=== PATIENT | female | born 1965 | race Caucasian/White ===

== ENCOUNTER 2017-11-06 12:40 | Emergency (ER) | payer BC ==
[2017-11-06] MEDS ORDERED: Morphine 2 MG/ML SYRINGE ONE ×2 (13:17→14:40)
[2017-11-06] MEDS ORDERED: Ondansetron HCl/PF 4 MG/2 ML Vial ONE (13:18)
[2017-11-06] MEDS ORDERED: Lidocaine 1% (PF) 30 ML VIAL ONE (13:58)
[2017-11-06] MEDS ORDERED: Bacitracin Zinc 1 Packet ONE (14:40)
--- NOTE | 2017-11-06 15:36 | RAD ---
THREE VIEWS LEFT HAND: COMPARISON: None. HISTORY: Hand lacerations after being bitten by a dog. FINDINGS: Three views left hand show no evidence of acute fracture or dislocation. There is air in the thenar web space. No radiopaque foreign body is seen. IMPRESSION: No evidence of acute osseous abnormality. POS: [facility]
[2017-11-06] MEDS ORDERED: Adacel (T-DAP) 0.5 ML VIAL ONE (15:53)
== END 2017-11-06 17:10 | disposition home or self-care (01) ==
LOC: ERS 12:40
DX: S01.551A Open bite of lip, initial encounter (principal); S61.452A Open bite of left hand, initial encounter; S61.451A Open bite of right hand, initial encounter; S01.05XA Open bite of scalp, initial encounter; S71.152A Open bite, left thigh, initial encounter; E03.9 Hypothyroidism, unspecified; F17.210 Nicotine dependence, cigarettes, uncomplicated; Z79.899 Other long term (current) drug therapy; W54.0XXA Bitten by dog, initial encounter
CPT/HCPCS: 12014; 90471; 90715; 96361; 96374; 96375; 96376; J2001; J2270; J2405

== ENCOUNTER 2018-05-27 08:08 | Outpatient (CLI) | payer BC | END 2018-05-27 08:09 | disposition home or self-care (01) | LOC: BICMAMMO 08:08 | PROVIDERS: ATTEND Obstetrics & Gynecology | DX: Z12.31 Encounter for screening mammogram for malignant neoplasm of breast (principal); R92.1 Mammographic calcification found on diagnostic imaging of breast | CPT/HCPCS: 77063; 77067 ==

== ENCOUNTER 2019-08-31 08:14 | Outpatient (CLI) | payer BC ==
--- NOTE | 2019-08-31 09:08 | MMO ---
Bilateral MAMMO Bilat Screen [facility]. CLINICAL HISTORY: Patient is 54 years old and is seen for screening. The patient has no family history of breast cancer. The patient has no personal history of cancer. VIEWS: The views performed were: bilateral craniocaudal with tomosynthesis and bilateral mediolateral oblique with tomosynthesis. FILMS COMPARED: The present examination has been compared to prior imaging studies performed at [facility] on 01/10/2015, 01/13/2016, 03/17/2017 and 05/27/2018. This study has been interpreted with the assistance of computer-aided detection. MAMMOGRAM FINDINGS: There are scattered fibroglandular densities. There are stable benign appearing calcifications seen in both breasts. There are no suspicious masses, suspicious calcifications, or new areas of architectural distortion. IMPRESSION: THERE IS NO MAMMOGRAPHIC EVIDENCE OF MALIGNANCY. A ROUTINE FOLLOW-UP MAMMOGRAM IN 1 YEAR IS RECOMMENDED. THE RESULTS OF THIS EXAM WERE SENT TO THE PATIENT. ACR BI-RADS Category 2 - Benign finding MAMMOGRAPHY NOTE: 1. A negative mammogram report should not delay a biopsy if a dominant of clinically suspicious mass is present. 2. Approximately 10% to 15% of breast cancers are not detected by mammography. 3. Adenosis and dense breasts may obscure an underlying neoplasm. Reported by: ALYSSA CHIRINOS MD Electonically Signed: [id number]
== END 2019-08-31 08:15 | disposition home or self-care (01) ==
LOC: BICMAMMO 08:14
PROVIDERS: ATTEND Obstetrics & Gynecology
DX: Z12.31 Encounter for screening mammogram for malignant neoplasm of breast (principal)
CPT/HCPCS: 77063; 77067

== ENCOUNTER 2020-12-31 13:07 | Inpatient (IN) | payer BC ==
[2020-12-31] MEDS ORDERED: Octreotide Acetate 50 MCG/ML AMP ONE (14:27)
[2020-12-31] MEDS ORDERED: cefTRIAXone\\ROCEPHIN 2 GM VIAL ONE (14:27)
[2020-12-31] MEDS ORDERED: Pantoprazole 40 MG VIAL ONE (14:35)
[2020-12-31] MEDS ORDERED: Octreotide Acetate 100 MCG/ML VIAL ONE (14:53)
[2020-12-31 15:12] LABS: Hemoglobin 7.4 g/dL (12.0-16.0); Mean Corpuscular Hemoglobin 35.4 pg (27.0-31.0); Mean Platelet Volume 10.1 fL (7.4-10.4); Platelet Count 151 thou/uL (130-400); RBC Distribution Width 14.2 % (11.5-14.5); Red Blood Cell (RBC) Count 2.09 mill/uL (4.20-5.40); White Blood Cell (WBC) Count 23.7 thou/uL (4.8-10.8)
[2020-12-31] MEDS ORDERED: Octreotide Acetate 1,250 MCG in Sodium Chloride 0.9% 250 ML 250 ML IVPB SCH ×2 (15:15→17:04)
[2020-12-31] MEDS ORDERED: Pantoprazole 80 MG, Admixture Fee 1 EACH in Sodium Chloride 0.9% 100 ML IVPB SCH (15:15)
[2020-12-31 15:17] LABS: INR-International Normal Ratio 1.8; Prothrombin Time 21.4 sec (12.0-14.7)
[2020-12-31 15:32] LABS: ALT (SGPT) 21 U/L (8-55); AST (SGOT) 49 U/L (5-34); Albumin 2.7 g/dL (3.5-5.0); Alcohol Less than 10 mg/dL (Less than 10); Alkaline Phosphatase 241 U/L (40-110); Anion Gap 17 mmol/L (10-20); BUN (Urea Nitrogen) 23 mg/dL (9.8-20.1); Bilirubin, Total 2.7 mg/dL (0.2-1.2); Calc. Creatinine Clearance 0 mL/min (70-130); Calcium 8.1 mg/dL (7.8-10.44); Carbon Dioxide 18 mmol/L (22-29); Chloride 100 mmol/L (98-107); Globulin 2.6 g/dL (2.4-3.5); Glucose 144 mg/dL (70-105); Potassium 4.4 mmol/L (3.5-5.1); Protein, Total 5.3 g/dL (6.0-8.3); Sodium 131 mmol/L (136-145)
[2020-12-31 15:33] LABS: PTT 39.6 sec (22.9-36.1)
[2020-12-31 15:35] LABS: Band 34 % (5-11); Lymphocytes 6 % (21-51); MDiff Complete? YES; Macrocytosis SLIGHT = 6-15 cells (100X) (0-5/hpf); Monocytes 6 % (0-10); Neutrophil 54 % (42-75); Platelet Morphology Comment Appears Adequate; Polychromasia SLIGHT = 2-3 cells (100X) (0-2/hpf)
[2020-12-31] MEDS ORDERED: PROPOFOL 200 MG/20 ML VIAL ONE (15:45)
[2020-12-31] MEDS ORDERED: Succinylcholine 200 MG/10 ml SYRINGE FS ONE (15:45)
[2020-12-31 16:08] LABS: SARS-CoV-2 NAA Rapid Test Not Detected (NotDetected)
[2020-12-31 16:26] LABS: Lactic Acid 5.4 mmol/L (0.5-2.2)
[2020-12-31] MEDS ORDERED: Ondansetron PF 4 MG/2 ML Vial IVP PRN (17:37)
[2020-12-31] MEDS ORDERED: Ondansetron ODT 4 MG TAB PO PRN (17:37)
[2020-12-31] MEDS: Budesonide 0.5 MG/2 ML NEB NEB SCH (19:08)
[2020-12-31 20:23] LABS: Hemoglobin 7.3 g/dL (12.0-16.0)
[2020-12-31 20:25] LABS: #Lymphocytes 1.6 thou/uL (1.20-3.40); #Monocytes 1.7 thou/uL (0.11-0.59); #Neutrophils 14.4 thou/uL (1.40-6.50); %Basophils 0.2 % (0.0-1.0); %Eosinophils 0.3 % (0.0-10.0); %Lymphocytes 9.2 % (21.0-51.0); %Monocytes 9.6 % (0.0-10.0); %Neutrophils 80.8 % (42.0-75.0); Hemoglobin 7.4 g/dL (12.0-16.0); Mean Corpuscular HGB CONC 33.3 g/dL (32.0-36.0); Mean Corpuscular Hemoglobin 34.6 pg (27.0-31.0); Mean Platelet Volume 10.3 fL (7.4-10.4); Platelet Count 88 thou/uL (130-400); Red Blood Cell (RBC) Count 2.12 mill/uL (4.20-5.40); White Blood Cell (WBC) Count 17.9 thou/uL (4.8-10.8)
[2020-12-31 20:56] LABS: Magnesium 1.8 mg/dL (1.6-2.6); Phosphorus 3.4 mg/dL (2.3-4.7)
[2020-12-31] MEDS: Dextrose 5 % And 0.9 % NaCl 1,000 ML IV SCH (21:40)
[2020-12-31] MEDS ORDERED: Diazepam 5 MG TAB PO PRN (23:03)
[2020-12-31] MEDS ORDERED: Diazepam 5 MG TAB PO SCH (23:15)
[2020-12-31] MEDS: Multivitamins, Adult 10 ML, Folic Acid 1 MG in Dextrose 5 %-0.45 % NaCl 1,000 ML IV SCH (23:16)
[2020-12-31] MEDS: Thiamine HCl 200 MG/2 ML VIAL SLOW IVP SCH (23:17)
[2020-12-31] MEDS: Phytonadione 10 MG/ML AMP SC SCH (23:18)
[2021-01-01 04:00] LABS: ALT (SGPT) 25 U/L (8-55); AST (SGOT) 66 U/L (5-34); Albumin 2.4 g/dL (3.5-5.0); Alkaline Phosphatase 175 U/L (40-110); Anion Gap 10 mmol/L (10-20); BUN (Urea Nitrogen) 18 mg/dL (9.8-20.1); Bilirubin, Total 1.8 mg/dL (0.2-1.2); Calc. Creatinine Clearance 176 mL/min (70-130); Calcium 7.3 mg/dL (7.8-10.44); Carbon Dioxide 23 mmol/L (22-29); Chloride 109 mmol/L (98-107); Globulin 2.3 g/dL (2.4-3.5); Glucose 149 mg/dL (70-105); Iron 40 ug/dL (50-170); Iron Binding Capacity, Total 189 mcg/dL (265-497); Potassium 3.7 mmol/L (3.5-5.1); Protein, Total 4.7 g/dL (6.0-8.3); Sodium 138 mmol/L (136-145)
[2021-01-01 04:07] LABS: CRP (Inflammatory) 3.4 mg/dL (= or < 0.5); Cardiac Risk 3.9 (Less than 4.5)
[2021-01-01 04:20] LABS: Ferritin 197.04 ng/mL (10-291); Thyroid Stimulating Hormone 1.3141 uIU/mL (0.35-4.94)
[2021-01-01 04:23] LABS: Reticulocyte Count 8.3 % (0.5-1.5)
[2021-01-01 04:39] LABS: INR-International Normal Ratio 1.6; Prothrombin Time 19.6 sec (12.0-14.7)
[2021-01-01 05:44] LABS: #Eosinphils 0.1 thou/uL (0.0-0.7); #Lymphocytes 1.8 thou/uL (1.20-3.40); #Monocytes 1.6 thou/uL (0.11-0.59); #Neutrophils 12.8 thou/uL (1.40-6.50); %Basophils 0.2 % (0.0-1.0); %Eosinophils 0.7 % (0.0-10.0); %Lymphocytes 10.8 % (21.0-51.0); %Monocytes 9.9 % (0.0-10.0); %Neutrophils 78.4 % (42.0-75.0); Anisocytosis SLIGHT = 6-15 cells (100X) (0-5/hpf); Hemoglobin 6.7 g/dL (12.0-16.0); MDiff Complete? YES; Mean Corpuscular HGB CONC 32.3 g/dL (32.0-36.0); Mean Platelet Volume 9.8 fL (7.4-10.4); Platelet Count 81 thou/uL (130-400); Platelet Morphology Comment Appears Decreased; RBC Distribution Width 16.6 % (11.5-14.5); Red Blood Cell (RBC) Count 1.97 mill/uL (4.20-5.40); White Blood Cell (WBC) Count 16.4 thou/uL (4.8-10.8)
[2021-01-01] MEDS: Budesonide 0.5 MG/2 ML NEB NEB SCH ×2 (07:47→18:55)
[2021-01-01] MEDS: Ipratropium Bromide 2.5 ml Neb NEB PRN ×2 (07:50→18:59)
[2021-01-01] MEDS: Dextrose 5 % And 0.9 % NaCl 1,000 ML IV SCH ×2 (08:24→18:09)
[2021-01-01] MEDS ORDERED: Magnesium Oxide 400 MG TAB PO SCH (09:00)
[2021-01-01] MEDS: Multivitamins, Adult 10 ML, Folic Acid 1 MG in Dextrose 5 %-0.45 % NaCl 1,000 ML IV SCH (09:14)
[2021-01-01] MEDS: Pantoprazole 80 MG in Sodium Chloride 0.9% 100 ML IVPB SCH (14:20)
[2021-01-01] MEDS ORDERED: cefTRIAXone Sodium 1,000 MG in Syringe 0 ML IVPB SCH (15:00)
[2021-01-01 16:36] LABS: Hemoglobin 7.9 g/dL (12.0-16.0); Platelet Count 84 thou/uL (130-400)
[2021-01-01] MEDS: Phytonadione 10 MG/ML AMP SC SCH (18:49)
[2021-01-01] MEDS: Thiamine HCl 200 MG/2 ML VIAL SLOW IVP SCH (18:49)
[2021-01-01] MEDS: Gabapentin 300 MG CAP PO SCH (22:06)
[2021-01-02] MEDS: Ipratropium Bromide 2.5 ml Neb NEB PRN (00:14)
[2021-01-02] MEDS: Pantoprazole 80 MG in Sodium Chloride 0.9% 100 ML IVPB SCH ×3 (01:48→22:13)
[2021-01-02 03:51] LABS: INR-International Normal Ratio 1.4; Prothrombin Time 17.2 sec (12.0-14.7)
[2021-01-02] MEDS ORDERED: Diazepam 5 MG TAB PO PRN (04:00)
[2021-01-02 04:13] LABS: ALT (SGPT) 36 U/L (8-55); AST (SGOT) 92 U/L (5-34); Albumin 2.6 g/dL (3.5-5.0); Alkaline Phosphatase 191 U/L (40-110); Anion Gap 10 mmol/L (10-20); BUN (Urea Nitrogen) 7 mg/dL (9.8-20.1); Bilirubin, Total 2.2 mg/dL (0.2-1.2); Calc. Creatinine Clearance 204 mL/min (70-130); Calcium 7.3 mg/dL (7.8-10.44); Carbon Dioxide 19 mmol/L (22-29); Chloride 109 mmol/L (98-107); Globulin 2.6 g/dL (2.4-3.5); Glucose 112 mg/dL (70-105); Magnesium 2.2 mg/dL (1.6-2.6); Potassium 3.3 mmol/L (3.5-5.1); Protein, Total 5.2 g/dL (6.0-8.3); Sodium 135 mmol/L (136-145)
[2021-01-02] MEDS: Dextrose 5 % And 0.9 % NaCl 1,000 ML IV SCH (06:06)
[2021-01-02 07:15] LABS: #Basophils 0.1 thou/uL (0.0-0.2); #Eosinphils 0.2 thou/uL (0.0-0.7); #Lymphocytes 1.1 thou/uL (1.20-3.40); #Monocytes 1.2 thou/uL (0.11-0.59); #Neutrophils 9.9 thou/uL (1.40-6.50); %Basophils 0.4 % (0.0-1.0); %Eosinophils 1.4 % (0.0-10.0); %Lymphocytes 8.8 % (21.0-51.0); %Monocytes 9.7 % (0.0-10.0); %Neutrophils 79.7 % (42.0-75.0); Mean Corpuscular HGB CONC 32.5 g/dL (32.0-36.0); Mean Platelet Volume 9.1 fL (7.4-10.4); Platelet Count 72 thou/uL (130-400); RBC Distribution Width 18.4 % (11.5-14.5); Red Blood Cell (RBC) Count 2.35 mill/uL (4.20-5.40); White Blood Cell (WBC) Count 12.5 thou/uL (4.8-10.8)
[2021-01-02] MEDS: Budesonide 0.5 MG/2 ML NEB NEB SCH ×2 (07:42→18:36)
[2021-01-02] MEDS: Gabapentin 300 MG CAP PO SCH ×3 (08:31→20:44)
[2021-01-02] MEDS: traMADol HCl 50 MG TAB PO PRN (09:04)
[2021-01-02] MEDS ORDERED: Adenosine 6 MG/2 ML VIAL IVP SCH (14:33)
[2021-01-02] MEDS ORDERED: Adenosine 6 MG/2 ML VIAL ONE (14:34)
[2021-01-02] MEDS ORDERED: Metoprolol Tartrate 25 MG TAB PO SCH (16:00)
[2021-01-02] MEDS ORDERED: Potassium Bicarbonate/Cit Ac 20 MEQ TAB PO SCH (16:00)
[2021-01-02] MEDS: Cyclobenzaprine 10 MG TAB PO PRN (16:04)
[2021-01-02] MEDS: Thiamine HCl 200 MG/2 ML VIAL SLOW IVP SCH (17:30)
[2021-01-02] MEDS: Phytonadione 10 MG/ML AMP SC SCH (17:30)
[2021-01-02] MEDS: Metoprolol Tartrate 25 MG TAB PO SCH (20:44)
[2021-01-03] MEDS: Cyclobenzaprine 10 MG TAB PO PRN ×3 (00:18→21:13)
[2021-01-03] MEDS: traMADol HCl 50 MG TAB PO PRN (03:09)
[2021-01-03 05:28] LABS: INR-International Normal Ratio 1.3; Prothrombin Time 16.4 sec (12.0-14.7)
[2021-01-03 05:28] LABS: #Eosinphils 0.2 thou/uL (0.0-0.7); #Lymphocytes 1.5 thou/uL (1.20-3.40); #Monocytes 0.9 thou/uL (0.11-0.59); #Neutrophils 8.5 thou/uL (1.40-6.50); %Basophils 0.4 % (0.0-1.0); %Monocytes 8.3 % (0.0-10.0); %Neutrophils 76.3 % (42.0-75.0); Hemoglobin 8.5 g/dL (12.0-16.0); Mean Corpuscular HGB CONC 31.7 g/dL (32.0-36.0); Mean Corpuscular Hemoglobin 34.4 pg (27.0-31.0); Platelet Count 79 thou/uL (130-400); RBC Distribution Width 18.4 % (11.5-14.5); Red Blood Cell (RBC) Count 2.48 mill/uL (4.20-5.40); White Blood Cell (WBC) Count 11.1 thou/uL (4.8-10.8)
[2021-01-03 05:51] LABS: ALT (SGPT) 42 U/L (8-55); AST (SGOT) 100 U/L (5-34); Albumin 2.7 g/dL (3.5-5.0); Alkaline Phosphatase 239 U/L (40-110); Anion Gap 9 mmol/L (10-20); BUN (Urea Nitrogen) 6 mg/dL (9.8-20.1); Bilirubin, Total 2.3 mg/dL (0.2-1.2); Calc. Creatinine Clearance 180 mL/min (70-130); Calcium 7.3 mg/dL (7.8-10.44); Carbon Dioxide 23 mmol/L (22-29); Chloride 104 mmol/L (98-107); Globulin 2.7 g/dL (2.4-3.5); Glucose 99 mg/dL (70-105); Magnesium 2.2 mg/dL (1.6-2.6); Potassium 3.8 mmol/L (3.5-5.1); Protein, Total 5.4 g/dL (6.0-8.3); Sodium 132 mmol/L (136-145)
[2021-01-03] MEDS: Budesonide 0.5 MG/2 ML NEB NEB SCH ×2 (06:58→18:33)
[2021-01-03] MEDS: Ipratropium Bromide 2.5 ml Neb NEB PRN ×2 (07:03→18:33)
[2021-01-03] MEDS ORDERED: Potassium Bicarbonate/Cit Ac 20 MEQ TAB PO SCH (08:00)
[2021-01-03] MEDS: Folic Acid 1 MG TAB PO SCH (08:51)
[2021-01-03] MEDS: Gabapentin 300 MG CAP PO SCH ×3 (08:51→21:13)
[2021-01-03] MEDS: Thiamine 100 MG TAB PO SCH (08:52)
[2021-01-03] MEDS: Multivitamin W/ Minerals 1 TAB PO SCH (08:52)
[2021-01-03] MEDS: Metoprolol Tartrate 25 MG TAB PO SCH (10:01)
[2021-01-03] MEDS ORDERED: Docusate 100 MG CAP PO PRN (18:00)
[2021-01-03] MEDS: Propranolol HCl 20 MG TAB PO SCH (21:15)
[2021-01-03] MEDS ORDERED: guaiFENesin/DM ER PO SCH (22:45)
[2021-01-04 04:50] LABS: #Eosinphils 0.1 thou/uL (0.0-0.7); #Lymphocytes 1.1 thou/uL (1.20-3.40); #Neutrophils 8.4 thou/uL (1.40-6.50); %Basophils 0.2 % (0.0-1.0); %Eosinophils 0.9 % (0.0-10.0); %Lymphocytes 10.1 % (21.0-51.0); %Monocytes 9.3 % (0.0-10.0); %Neutrophils 79.4 % (42.0-75.0); Hemoglobin 7.9 g/dL (12.0-16.0); Mean Corpuscular HGB CONC 32.6 g/dL (32.0-36.0); Mean Corpuscular Hemoglobin 34.8 pg (27.0-31.0); Mean Platelet Volume 9.2 fL (7.4-10.4); Platelet Count 79 thou/uL (130-400); RBC Distribution Width 17.6 % (11.5-14.5); Red Blood Cell (RBC) Count 2.26 mill/uL (4.20-5.40); White Blood Cell (WBC) Count 10.6 thou/uL (4.8-10.8)
[2021-01-04 05:07] LABS: ALT (SGPT) 45 U/L (8-55); AST (SGOT) 96 U/L (5-34); Albumin 2.5 g/dL (3.5-5.0); Alkaline Phosphatase 212 U/L (40-110); Anion Gap 9 mmol/L (10-20); BUN (Urea Nitrogen) 6 mg/dL (9.8-20.1); Bilirubin, Total 2.4 mg/dL (0.2-1.2); Calc. Creatinine Clearance 187 mL/min (70-130); Calcium 7.4 mg/dL (7.8-10.44); Carbon Dioxide 26 mmol/L (22-29); Chloride 103 mmol/L (98-107); Globulin 2.7 g/dL (2.4-3.5); Glucose 102 mg/dL (70-105); Potassium 3.5 mmol/L (3.5-5.1); Protein, Total 5.2 g/dL (6.0-8.3); Sodium 134 mmol/L (136-145)
[2021-01-04] MEDS: Cyclobenzaprine 10 MG TAB PO PRN (06:23)
[2021-01-04] MEDS: Levothyroxine 175 MCG TAB PO SCH (06:23)
[2021-01-04] MEDS: Budesonide 0.5 MG/2 ML NEB NEB SCH ×2 (07:10→18:39)
[2021-01-04] MEDS: Ipratropium Bromide 2.5 ml Neb NEB PRN ×2 (07:10→18:37)
[2021-01-04] MEDS: Multivitamin W/ Minerals 1 TAB PO SCH (09:58)
[2021-01-04] MEDS: Gabapentin 300 MG CAP PO SCH ×3 (09:58→20:56)
[2021-01-04] MEDS: Propranolol HCl 20 MG TAB PO SCH (10:00)
[2021-01-04] MEDS: Folic Acid 1 MG TAB PO SCH (10:00)
[2021-01-04] MEDS: guaiFENesin/DM ER PO SCH ×2 (10:00→20:57)
[2021-01-04] MEDS ORDERED: Digoxin 0.5 MG/2 ML AMP SLOW IVP SCH (10:00)
[2021-01-04] MEDS: Thiamine 100 MG TAB PO SCH (10:00)
[2021-01-04] MEDS ORDERED: Metoprolol Tartrate 5 MG/5 ML VIAL IVP SCH (10:15)
[2021-01-04] MEDS: Digoxin 0.5 MG/2 ML AMP SLOW IVP SCH ×2 (10:18→12:02)
[2021-01-04] MEDS: traMADol HCl 50 MG TAB PO PRN (15:22)
[2021-01-04] MEDS ORDERED: Iopamidol-370 76% 500 ML 1 ML ONE (15:29)
[2021-01-04] MEDS: Spironolactone 25 MG TAB PO SCH (16:44)
[2021-01-04] MEDS ORDERED: Sodium Chloride 0.9% 500 ML IVPB SCH (23:30)
[2021-01-05 04:45] LABS: #Eosinphils 0.1 thou/uL (0.0-0.7); #Lymphocytes 1.2 thou/uL (1.20-3.40); #Monocytes 1.3 thou/uL (0.11-0.59); #Neutrophils 8.5 thou/uL (1.40-6.50); %Basophils 0.4 % (0.0-1.0); %Eosinophils 1.3 % (0.0-10.0); %Lymphocytes 10.8 % (21.0-51.0); %Monocytes 11.8 % (0.0-10.0); %Neutrophils 75.7 % (42.0-75.0); Hemoglobin 7.8 g/dL (12.0-16.0); Mean Corpuscular HGB CONC 32.3 g/dL (32.0-36.0); Mean Corpuscular Hemoglobin 34.4 pg (27.0-31.0); Mean Platelet Volume 9.1 fL (7.4-10.4); Platelet Count 94 thou/uL (130-400); RBC Distribution Width 16.3 % (11.5-14.5); Red Blood Cell (RBC) Count 2.26 mill/uL (4.20-5.40); White Blood Cell (WBC) Count 11.2 thou/uL (4.8-10.8)
[2021-01-05 04:55] LABS: ALT (SGPT) 37 U/L (8-55); AST (SGOT) 70 U/L (5-34); Albumin 2.4 g/dL (3.5-5.0); Alkaline Phosphatase 265 U/L (40-110); Anion Gap 7 mmol/L (10-20); BUN (Urea Nitrogen) 5 mg/dL (9.8-20.1); Bilirubin, Total 1.7 mg/dL (0.2-1.2); Calc. Creatinine Clearance 180 mL/min (70-130); Calcium 7.3 mg/dL (7.8-10.44); Carbon Dioxide 26 mmol/L (22-29); Chloride 103 mmol/L (98-107); Globulin 2.6 g/dL (2.4-3.5); Glucose 119 mg/dL (70-105); Potassium 3.3 mmol/L (3.5-5.1); Sodium 133 mmol/L (136-145)
[2021-01-05] MEDS: Levothyroxine 175 MCG TAB PO SCH (05:06)
[2021-01-05] MEDS ORDERED: Potassium Chloride 20 MEQ TAB PO SCH (06:00)
[2021-01-05] MEDS: Budesonide 0.5 MG/2 ML NEB NEB SCH ×2 (07:25→18:30)
[2021-01-05] MEDS: guaiFENesin/DM ER PO SCH ×2 (08:39→20:10)
[2021-01-05] MEDS: Multivitamin W/ Minerals 1 TAB PO SCH (08:40)
[2021-01-05] MEDS: Folic Acid 1 MG TAB PO SCH (08:40)
[2021-01-05] MEDS: Thiamine 100 MG TAB PO SCH (08:40)
[2021-01-05] MEDS: Gabapentin 300 MG CAP PO SCH ×3 (08:41→20:08)
[2021-01-05] MEDS: Spironolactone 25 MG TAB PO SCH ×2 (08:42→17:02)
[2021-01-05] MEDS ORDERED: traMADol HCl 50 MG TAB PO SCH (08:45)
[2021-01-05] MEDS ORDERED: Furosemide 20 MG TAB PO SCH (09:00)
[2021-01-05] MEDS ORDERED: Digoxin 0.25 MG TAB PO SCH (14:45)
[2021-01-05] MEDS: Furosemide 40 MG TAB PO SCH (15:15)
[2021-01-05] MEDS ORDERED: Acetaminophen 325 MG TAB PO SCH (15:30)
[2021-01-05] MEDS: Digoxin 0.25 MG TAB PO SCH ×2 (17:02→20:07)
[2021-01-05] MEDS: traMADol HCl 50 MG TAB PO PRN (20:11)
[2021-01-06] MEDS: Levothyroxine 175 MCG TAB PO SCH (05:30)
[2021-01-06] MEDS: traMADol HCl 50 MG TAB PO PRN ×2 (05:33→20:13)
[2021-01-06] MEDS: Budesonide 0.5 MG/2 ML NEB NEB SCH ×2 (06:52→18:41)
[2021-01-06 07:45] LABS: Anion Gap 8 mmol/L (10-20); BUN (Urea Nitrogen) 4 mg/dL (9.8-20.1); Calc. Creatinine Clearance 183 mL/min (70-130); Calcium 7.6 mg/dL (7.8-10.44); Carbon Dioxide 29 mmol/L (22-29); Chloride 101 mmol/L (98-107); Glucose 86 mg/dL (70-105); Magnesium 2.1 mg/dL (1.6-2.6); Potassium 3.6 mmol/L (3.5-5.1); Sodium 134 mmol/L (136-145)
[2021-01-06] MEDS: Digoxin 0.25 MG TAB PO SCH (08:57)
[2021-01-06] MEDS: Multivitamin W/ Minerals 1 TAB PO SCH (08:58)
[2021-01-06] MEDS: Thiamine 100 MG TAB PO SCH (08:58)
[2021-01-06] MEDS: Gabapentin 300 MG CAP PO SCH ×3 (08:58→20:14)
[2021-01-06] MEDS: Spironolactone 25 MG TAB PO SCH ×2 (08:58→15:51)
[2021-01-06] MEDS: Furosemide 40 MG TAB PO SCH ×2 (08:58→15:51)
[2021-01-06] MEDS: Folic Acid 1 MG TAB PO SCH (08:59)
[2021-01-06] MEDS: guaiFENesin/DM ER PO SCH ×2 (08:59→20:13)
[2021-01-06] MEDS: Ipratropium Bromide 2.5 ml Neb NEB PRN (18:41)
[2021-01-06] MEDS: Flecainide 50 MG TAB PO SCH (20:14)
[2021-01-06] MEDS: Acetaminophen 325 MG TAB PO PRN (21:43)
[2021-01-07 05:25] LABS: Anion Gap 10 mmol/L (10-20); BUN (Urea Nitrogen) 5 mg/dL (9.8-20.1); Calc. Creatinine Clearance 176 mL/min (70-130); Calcium 7.7 mg/dL (7.8-10.44); Carbon Dioxide 31 mmol/L (22-29); Chloride 96 mmol/L (98-107); Glucose 86 mg/dL (70-105); Potassium 3.1 mmol/L (3.5-5.1); Sodium 134 mmol/L (136-145)
[2021-01-07] MEDS ORDERED: Potassium Chloride 20 MEQ TAB PO SCH ×2 (06:00→06:15)
[2021-01-07] MEDS: Levothyroxine 175 MCG TAB PO SCH (06:11)
[2021-01-07] MEDS: Budesonide 0.5 MG/2 ML NEB NEB SCH ×2 (06:24→18:48)
[2021-01-07] MEDS: Ipratropium Bromide 2.5 ml Neb NEB PRN ×2 (06:35→18:50)
[2021-01-07] MEDS: Gabapentin 300 MG CAP PO SCH ×3 (08:35→21:11)
[2021-01-07] MEDS: Furosemide 40 MG TAB PO SCH ×2 (08:35→13:51)
[2021-01-07] MEDS: Digoxin 0.25 MG TAB PO SCH (08:35)
[2021-01-07] MEDS: Flecainide 50 MG TAB PO SCH ×2 (08:36→21:12)
[2021-01-07] MEDS: Spironolactone 100 MG TAB PO SCH (08:36)
[2021-01-07] MEDS: guaiFENesin/DM ER PO SCH ×2 (08:36→21:11)
[2021-01-07] MEDS: Thiamine 100 MG TAB PO SCH (08:36)
[2021-01-07] MEDS: Folic Acid 1 MG TAB PO SCH (08:36)
[2021-01-07] MEDS: Multivitamin W/ Minerals 1 TAB PO SCH (08:36)
[2021-01-07] MEDS: Acetaminophen 325 MG TAB PO PRN ×2 (13:50→21:12)
[2021-01-07 16:02] LABS: #Lymphocytes 0.8 thou/uL (1.20-3.40); #Monocytes 1.2 thou/uL (0.11-0.59); #Neutrophils 9.7 thou/uL (1.40-6.50); %Basophils 0.1 % (0.0-1.0); %Eosinophils 0.4 % (0.0-10.0); %Lymphocytes 6.4 % (21.0-51.0); %Monocytes 10.4 % (0.0-10.0); %Neutrophils 82.7 % (42.0-75.0); Hemoglobin 8.3 g/dL (12.0-16.0); Mean Corpuscular HGB CONC 32.9 g/dL (32.0-36.0); Mean Corpuscular Hemoglobin 33.8 pg (27.0-31.0); Mean Platelet Volume 8.9 fL (7.4-10.4); Platelet Count 122 thou/uL (130-400); RBC Distribution Width 15.5 % (11.5-14.5); Red Blood Cell (RBC) Count 2.46 mill/uL (4.20-5.40); White Blood Cell (WBC) Count 11.8 thou/uL (4.8-10.8)
[2021-01-07 16:22] LABS: ALT (SGPT) 29 U/L (8-55); AST (SGOT) 49 U/L (5-34); Albumin 2.8 g/dL (3.5-5.0); Alkaline Phosphatase 335 U/L (40-110); Bilirubin, Direct 1.1 mg/dL (0.1-0.3); Bilirubin, Total 1.5 mg/dL (0.2-1.2); Protein, Total 5.9 g/dL (6.0-8.3)
[2021-01-07 17:14] LABS: Bacteria/HPF None Seen HPF (None Seen); Bilirubin Negative (Negative); Blood, Urine Negative (Negative); Clarity Clear (Clear); Glucose, Urine (Dipstick) Normal (Negative); Ketone, Urine Negative (Negative); Leukocyte Negative Leu/uL (Negative); Nitrite Negative (Negative); Protein, Urine (Dipstick) Negative (Neg-Trace); RBC/HPF None Seen HPF (0-3); Specific Gravity, Urine 1.004 (1.002-1.036); Squamous Epithelial None Seen HPF (0-3); Urobilinogen Normal mg/dL (Less than 2); WBC/HPF 0-3 HPF (0-3)
[2021-01-07 17:22] LABS: Urine Culture Reflex No No
[2021-01-07] MEDS: traMADol HCl 50 MG TAB PO PRN (21:12)
[2021-01-08 05:06] LABS: Phosphorus 4.1 mg/dL (2.3-4.7)
[2021-01-08 05:15] LABS: Anion Gap 7 mmol/L (10-20); BUN (Urea Nitrogen) 6 mg/dL (9.8-20.1); Calc. Creatinine Clearance 177 mL/min (70-130); Calcium 7.8 mg/dL (7.8-10.44); Carbon Dioxide 33 mmol/L (22-29); Chloride 100 mmol/L (98-107); Glucose 84 mg/dL (70-105); Magnesium 2.1 mg/dL (1.6-2.6); Potassium 3.3 mmol/L (3.5-5.1); Sodium 137 mmol/L (136-145)
[2021-01-08] MEDS: Levothyroxine 175 MCG TAB PO SCH (05:26)
[2021-01-08] MEDS: Budesonide 0.5 MG/2 ML NEB NEB SCH ×2 (07:46→18:25)
[2021-01-08] MEDS: Thiamine 100 MG TAB PO SCH (08:43)
[2021-01-08] MEDS: Spironolactone 100 MG TAB PO SCH (08:43)
[2021-01-08] MEDS: Folic Acid 1 MG TAB PO SCH (08:43)
[2021-01-08] MEDS: Furosemide 40 MG TAB PO SCH ×2 (08:44→15:30)
[2021-01-08] MEDS: Multivitamin W/ Minerals 1 TAB PO SCH (08:44)
[2021-01-08] MEDS: Flecainide 50 MG TAB PO SCH ×2 (08:44→20:51)
[2021-01-08] MEDS: guaiFENesin/DM ER PO SCH ×2 (08:45→20:51)
[2021-01-08] MEDS: Gabapentin 300 MG CAP PO SCH ×3 (08:45→20:52)
[2021-01-08 16:56] LABS: RBC Count-Automated (BF) 52 /cu.mm; WBC/Nucleated-Auto (BF) 93 uL
[2021-01-08] MEDS ORDERED: Bisacodyl 10 MG SUPP PR SCH (17:30)
[2021-01-08 17:37] LABS: BF Color Yellow; Body Fluid Source Ascites Body Fluid; Clarity Clear (Clear); Tube # EDTA
[2021-01-08 17:40] LABS: BF Segmented Neutrophils 17 %; Cell Count Non Hematic 74 %; Lymphocytes 9 %
[2021-01-08] MEDS: Acetaminophen 325 MG TAB PO PRN (20:51)
[2021-01-09] MEDS: Levothyroxine 175 MCG TAB PO SCH (05:48)
[2021-01-09] MEDS: Budesonide 0.5 MG/2 ML NEB NEB SCH ×2 (07:54→18:58)
[2021-01-09] MEDS: Spironolactone 100 MG TAB PO SCH (08:05)
[2021-01-09] MEDS: Gabapentin 300 MG CAP PO SCH ×3 (08:05→21:09)
[2021-01-09] MEDS: Folic Acid 1 MG TAB PO SCH (08:06)
[2021-01-09] MEDS: guaiFENesin/DM ER PO SCH ×2 (08:06→21:10)
[2021-01-09] MEDS: Digoxin 0.125 MG TAB PO SCH (08:06)
[2021-01-09] MEDS: Thiamine 100 MG TAB PO SCH (08:06)
[2021-01-09] MEDS: Flecainide 50 MG TAB PO SCH ×2 (08:06→21:10)
[2021-01-09] MEDS: Furosemide 40 MG TAB PO SCH ×2 (08:07→14:59)
[2021-01-09] MEDS: Multivitamin W/ Minerals 1 TAB PO SCH (08:07)
[2021-01-09] MEDS ORDERED: Cefdinir 300 MG CAP PO SCH ×2 (09:15→21:00)
[2021-01-09 10:41] VITALS: BMI 29.6
[2021-01-09] MEDS: Acetaminophen 325 MG TAB PO PRN (14:59)
[2021-01-09] MEDS: cefTRIAXone\\ROCEPHIN 1 GM in Sodium Chloride 0.9% 100 ML IVPB SCH (16:09)
[2021-01-09] MEDS: Ipratropium Bromide 2.5 ml Neb NEB PRN (18:59)
[2021-01-09] MEDS: traMADol HCl 50 MG TAB PO PRN (21:09)
[2021-01-10 05:01] LABS: #Eosinphils 0.1 thou/uL (0.0-0.7); #Monocytes 0.9 thou/uL (0.11-0.59); #Neutrophils 6.4 thou/uL (1.40-6.50); %Basophils 0.5 % (0.0-1.0); %Eosinophils 1.7 % (0.0-10.0); %Lymphocytes 11.6 % (21.0-51.0); %Monocytes 10.5 % (0.0-10.0); %Neutrophils 75.7 % (42.0-75.0); Hemoglobin 8.3 g/dL (12.0-16.0); Mean Corpuscular HGB CONC 30.7 g/dL (32.0-36.0); Mean Corpuscular Hemoglobin 31.5 pg (27.0-31.0); Mean Platelet Volume 8.4 fL (7.4-10.4); Platelet Count 140 thou/uL (130-400); RBC Distribution Width 16.5 % (11.5-14.5); Red Blood Cell (RBC) Count 2.64 mill/uL (4.20-5.40); White Blood Cell (WBC) Count 8.4 thou/uL (4.8-10.8)
[2021-01-10] MEDS: Levothyroxine 175 MCG TAB PO SCH (05:12)
[2021-01-10 05:21] LABS: ALT (SGPT) 22 U/L (8-55); AST (SGOT) 38 U/L (5-34); Albumin 2.6 g/dL (3.5-5.0); Alkaline Phosphatase 260 U/L (40-110); Anion Gap 10 mmol/L (10-20); BUN (Urea Nitrogen) 5 mg/dL (9.8-20.1); Bilirubin, Total 1.3 mg/dL (0.2-1.2); Calc. Creatinine Clearance 192 mL/min (70-130); Carbon Dioxide 30 mmol/L (22-29); Chloride 99 mmol/L (98-107); Globulin 3.1 g/dL (2.4-3.5); Glucose 94 mg/dL (70-105); Potassium 3.2 mmol/L (3.5-5.1); Protein, Total 5.7 g/dL (6.0-8.3); Sodium 136 mmol/L (136-145)
[2021-01-10] MEDS: Spironolactone 100 MG TAB PO SCH (08:00)
[2021-01-10] MEDS: Flecainide 50 MG TAB PO SCH ×2 (08:00→20:50)
[2021-01-10] MEDS: guaiFENesin/DM ER PO SCH ×2 (08:00→20:49)
[2021-01-10] MEDS: Thiamine 100 MG TAB PO SCH (08:00)
[2021-01-10] MEDS: Digoxin 0.125 MG TAB PO SCH (08:00)
[2021-01-10] MEDS: Folic Acid 1 MG TAB PO SCH (08:00)
[2021-01-10] MEDS: Gabapentin 300 MG CAP PO SCH ×3 (08:01→20:49)
[2021-01-10] MEDS: traMADol HCl 50 MG TAB PO PRN ×2 (08:01→20:48)
[2021-01-10] MEDS: Furosemide 40 MG TAB PO SCH ×2 (08:01→13:52)
[2021-01-10] MEDS: Multivitamin W/ Minerals 1 TAB PO SCH (08:01)
[2021-01-10] MEDS: Budesonide 0.5 MG/2 ML NEB NEB SCH ×2 (08:25→19:53)
[2021-01-10] MEDS: cefTRIAXone\\ROCEPHIN 1 GM in Sodium Chloride 0.9% 100 ML IVPB SCH (15:11)
[2021-01-10] MEDS: Cyclobenzaprine 10 MG TAB PO PRN (20:48)
[2021-01-11] MEDS: Levothyroxine 175 MCG TAB PO SCH (05:04)
[2021-01-11] MEDS: Budesonide 0.5 MG/2 ML NEB NEB SCH ×2 (07:29→20:07)
[2021-01-11] MEDS: Gabapentin 300 MG CAP PO SCH ×3 (08:26→21:08)
[2021-01-11] MEDS: Digoxin 0.125 MG TAB PO SCH (08:26)
[2021-01-11] MEDS: Folic Acid 1 MG TAB PO SCH (08:26)
[2021-01-11] MEDS: Spironolactone 100 MG TAB PO SCH (08:26)
[2021-01-11] MEDS: Furosemide 40 MG TAB PO SCH (08:26)
[2021-01-11] MEDS: Multivitamin W/ Minerals 1 TAB PO SCH (08:26)
[2021-01-11] MEDS: guaiFENesin/DM ER PO SCH ×2 (08:27→21:09)
[2021-01-11] MEDS: Flecainide 50 MG TAB PO SCH ×2 (08:27→21:08)
[2021-01-11] MEDS: Thiamine 100 MG TAB PO SCH (08:27)
[2021-01-11] MEDS: traMADol HCl 50 MG TAB PO PRN ×2 (11:37→21:08)
[2021-01-11] MEDS: Cyclobenzaprine 10 MG TAB PO PRN (11:37)
[2021-01-11 11:45] LABS: #Eosinphils 0.2 thou/uL (0.0-0.7); #Lymphocytes 0.9 thou/uL (1.20-3.40); #Monocytes 0.9 thou/uL (0.11-0.59); %Eosinophils 1.9 % (0.0-10.0); %Lymphocytes 8.8 % (21.0-51.0); %Monocytes 9.2 % (0.0-10.0); %Neutrophils 80.1 % (42.0-75.0); Hemoglobin 8.4 g/dL (12.0-16.0); Mean Corpuscular HGB CONC 30.7 g/dL (32.0-36.0); Mean Corpuscular Hemoglobin 31.2 pg (27.0-31.0); Mean Platelet Volume 8.3 fL (7.4-10.4); Platelet Count 133 thou/uL (130-400); RBC Distribution Width 17.1 % (11.5-14.5); Red Blood Cell (RBC) Count 2.69 mill/uL (4.20-5.40)
[2021-01-11 11:59] LABS: Anion Gap 11 mmol/L (10-20); BUN (Urea Nitrogen) 5 mg/dL (9.8-20.1); Calc. Creatinine Clearance 188 mL/min (70-130); Calcium 8.1 mg/dL (7.8-10.44); Carbon Dioxide 27 mmol/L (22-29); Chloride 98 mmol/L (98-107); Glucose 107 mg/dL (70-105); Sodium 133 mmol/L (136-145)
[2021-01-11 12:06] LABS: Potassium 2.9 mmol/L (3.5-5.1)
[2021-01-11] MEDS ORDERED: Potassium Chloride 20 MEQ TAB PO SCH ×2 (12:30→20:15)
[2021-01-11] MEDS: cefTRIAXone\\ROCEPHIN 1 GM in Sodium Chloride 0.9% 100 ML IVPB SCH (15:49)
[2021-01-11] MEDS: Ipratropium Bromide 2.5 ml Neb NEB PRN (20:07)
[2021-01-12 05:14] LABS: ALT (SGPT) 21 U/L (8-55); AST (SGOT) 43 U/L (5-34); Albumin 2.7 g/dL (3.5-5.0); Alkaline Phosphatase 254 U/L (40-110); Anion Gap 9 mmol/L (10-20); BUN (Urea Nitrogen) 5 mg/dL (9.8-20.1); Bilirubin, Total 1.3 mg/dL (0.2-1.2); Calc. Creatinine Clearance 175 mL/min (70-130); Calcium 8.4 mg/dL (7.8-10.44); Carbon Dioxide 31 mmol/L (22-29); Chloride 102 mmol/L (98-107); Globulin 3.2 g/dL (2.4-3.5); Glucose 107 mg/dL (70-105); Potassium 3.7 mmol/L (3.5-5.1); Protein, Total 5.9 g/dL (6.0-8.3); Sodium 138 mmol/L (136-145)
[2021-01-12] MEDS: Levothyroxine 175 MCG TAB PO SCH (05:58)
[2021-01-12] MEDS: Budesonide 0.5 MG/2 ML NEB NEB SCH ×2 (07:09→19:18)
[2021-01-12] MEDS ORDERED: Furosemide 40 MG TAB PO SCH (07:30)
[2021-01-12] MEDS ORDERED: traMADol HCl 50 MG TAB PO PRN (08:39)
[2021-01-12] MEDS: guaiFENesin/DM ER PO SCH ×2 (08:47→21:49)
[2021-01-12] MEDS: Flecainide 50 MG TAB PO SCH ×2 (08:49→21:49)
[2021-01-12] MEDS: Multivitamin W/ Minerals 1 TAB PO SCH (08:49)
[2021-01-12] MEDS: Gabapentin 300 MG CAP PO SCH ×3 (08:49→21:48)
[2021-01-12] MEDS: Digoxin 0.125 MG TAB PO SCH (08:49)
[2021-01-12] MEDS: Thiamine 100 MG TAB PO SCH (08:49)
[2021-01-12] MEDS: Folic Acid 1 MG TAB PO SCH (08:49)
[2021-01-12] MEDS: Spironolactone 100 MG TAB PO SCH ×2 (08:49→21:49)
[2021-01-12] MEDS: cefTRIAXone\\ROCEPHIN 1 GM in Sodium Chloride 0.9% 100 ML IVPB SCH (17:18)
[2021-01-12] MEDS: Ipratropium Bromide 2.5 ml Neb NEB PRN (19:17)
[2021-01-13] MEDS: Levothyroxine 175 MCG TAB PO SCH (05:56)
[2021-01-13] MEDS: Budesonide 0.5 MG/2 ML NEB NEB SCH (07:34)
[2021-01-13] MEDS: Multivitamin W/ Minerals 1 TAB PO SCH (09:14)
[2021-01-13] MEDS: Furosemide 40 MG TAB PO SCH ×2 (09:15→15:13)
[2021-01-13] MEDS: Thiamine 100 MG TAB PO SCH (09:15)
[2021-01-13] MEDS: Folic Acid 1 MG TAB PO SCH (09:15)
[2021-01-13] MEDS: Spironolactone 100 MG TAB PO SCH (09:15)
[2021-01-13] MEDS: guaiFENesin/DM ER PO SCH (09:16)
[2021-01-13] MEDS: Flecainide 50 MG TAB PO SCH (09:16)
[2021-01-13] MEDS: Digoxin 0.125 MG TAB PO SCH (09:16)
[2021-01-13] MEDS: Gabapentin 300 MG CAP PO SCH ×2 (09:16→15:12)
[2021-01-13 10:34] LABS: Anion Gap 12 mmol/L (10-20); BUN (Urea Nitrogen) 5 mg/dL (9.8-20.1); Calc. Creatinine Clearance 166 mL/min (70-130); Calcium 8.6 mg/dL (7.8-10.44); Carbon Dioxide 27 mmol/L (22-29); Chloride 102 mmol/L (98-107); Glucose 113 mg/dL (70-105); Potassium 3.9 mmol/L (3.5-5.1); Sodium 137 mmol/L (136-145)
[2021-01-13] MEDS: cefTRIAXone\\ROCEPHIN 1 GM in Sodium Chloride 0.9% 100 ML IVPB SCH (15:12)
[2021-01-13 15:20] VITALS: BP 111/59; TEMP 98.4
== END 2021-01-13 16:56 | disposition home or self-care (01) | DRG 432 ==
LOC: ERS 13:07 → SDC 17:13 → CCU 18:00 → 2NO 01-03 02:22
PROVIDERS: ADMIT Internal Medicine Gastroenterology; ATTEND Internal Medicine
PROC: 06L38CZ Occlusion of Esophageal Vein with Extraluminal Device, Via Natural or Artificial Opening Endoscopic (ICD-10-PCS; principal; 2020-12-31)
PROC: 30233N1 Transfusion of Nonautologous Red Blood Cells into Peripheral Vein, Percutaneous Approach (ICD-10-PCS; 2020-12-31)
PROC: 0W9G3ZZ Drainage of Peritoneal Cavity, Percutaneous Approach (ICD-10-PCS; 2021-01-08)
DX: K70.31 Alcoholic cirrhosis of liver with ascites (principal); I85.11 Secondary esophageal varices with bleeding; A41.9 Sepsis, unspecified organism; Z20.822 Contact with and (suspected) exposure to COVID-19; D62 Acute posthemorrhagic anemia; E87.2 Acidosis; D68.4 Acquired coagulation factor deficiency; I47.1 Supraventricular tachycardia; I48.4 Atypical atrial flutter; I10 Essential (primary) hypertension; E03.9 Hypothyroidism, unspecified; K70.11 Alcoholic hepatitis with ascites; F32.9 Major depressive disorder, single episode, unspecified; F17.210 Nicotine dependence, cigarettes, uncomplicated; G62.9 Polyneuropathy, unspecified; D69.6 Thrombocytopenia, unspecified; E88.09 Other disorders of plasma-protein metabolism, not elsewhere classified; F10.20 Alcohol dependence, uncomplicated; Y90.0 Blood alcohol level of less than 20 mg/100 ml; I48.0 Paroxysmal atrial fibrillation; E66.01 Morbid (severe) obesity due to excess calories; J44.9 Chronic obstructive pulmonary disease, unspecified; I86.8 Varicose veins of other specified sites; I95.2 Hypotension due to drugs; T44.7X5A Adverse effect of beta-adrenoreceptor antagonists, initial encounter; E87.70 Fluid overload, unspecified; E87.6 Hypokalemia; Z87.19 Personal history of other diseases of the digestive system; Z68.33 Body mass index [BMI] 33.0-33.9, adult; Z90.49 Acquired absence of other specified parts of digestive tract; Z79.899 Other long term (current) drug therapy; Z79.890 Hormone replacement therapy
CPT/HCPCS: 0240U; 36415; 36430; 49083; 71045; 74177; 76705; 80048; 80053; 80061; 80076; 80307; 81001; 82042; 82105; 82607; 82728; 82746; 82977; 83540; 83550; 83605; 83735; 84100; 84157; 84443; 85025; 85046; 85060; 85610; 85730; 86140; 86850; 86900; 86901; 87040; 87070; 87205; 89051; 93005; 93010; 93306; 93975; 94760; 96374; 96375; 99292; C9113; J0153; J0696; J1160; J2354; J2405; J2704; J3411; J3430; J3475; J3490; J7030; J7042; J7050; J7626; P9016; Q9967

== ENCOUNTER 2021-02-04 09:09 | Outpatient (CLI) | payer BC ==
[2021-02-04 20:37] LABS: SARS-CoV-2 PCR by NAA Not Detected (NotDetected)
== END 2021-02-04 09:10 | disposition home or self-care (01) ==
LOC: LABBT 09:09
PROVIDERS: ATTEND Internal Medicine Gastroenterology
DX: Z01.812 Encounter for preprocedural laboratory examination (principal); I85.00 Esophageal varices without bleeding; D50.0 Iron deficiency anemia secondary to blood loss (chronic); R18.8 Other ascites; I48.91 Unspecified atrial fibrillation; K70.30 Alcoholic cirrhosis of liver without ascites
CPT/HCPCS: U0003; U0005

== ENCOUNTER 2021-02-07 06:54 | Day surgery (SDC) | payer BC ==
[2021-02-06 11:08] VITALS: BMI 27.3
[2021-02-07] MEDS ORDERED: PROPOFOL 200 MG/20 ML VIAL ONE (09:08)
[2021-02-07] MEDS ORDERED: Lidocaine 1% PF 5 ML VIAL ONE (09:08)
[2021-02-07] MEDS ORDERED: Fentanyl 100 MCG/2 ML VIAL ONE ×2 (09:36→11:07)
[2021-02-07 10:41] LABS: ALT (SGPT) 26 U/L (8-55); AST (SGOT) 46 U/L (5-34); Albumin 3.7 g/dL (3.5-5.0); Alkaline Phosphatase 198 U/L (40-110); Anion Gap 12 mmol/L (10-20); BUN (Urea Nitrogen) 8 mg/dL (9.8-20.1); Bilirubin, Total 1.7 mg/dL (0.2-1.2); Calc. Creatinine Clearance 130 mL/min (70-130); Calcium 9.5 mg/dL (7.8-10.44); Carbon Dioxide 26 mmol/L (22-29); Chloride 104 mmol/L (98-107); Globulin 3.8 g/dL (2.4-3.5); Glucose 94 mg/dL (70-105); Potassium 4.3 mmol/L (3.5-5.1); Protein, Total 7.5 g/dL (6.0-8.3); Sodium 138 mmol/L (136-145)
== END 2021-02-07 11:30 | disposition home or self-care (01) ==
LOC: SDC 06:54
PROVIDERS: ATTEND Internal Medicine Gastroenterology
PROC: 0DB58ZX Excision of Esophagus, Via Natural or Artificial Opening Endoscopic, Diagnostic (ICD-10-PCS; principal; 2021-02-07)
DX: K70.31 Alcoholic cirrhosis of liver with ascites (principal); I85.10 Secondary esophageal varices without bleeding; K29.50 Unspecified chronic gastritis without bleeding; D50.0 Iron deficiency anemia secondary to blood loss (chronic); F10.10 Alcohol abuse, uncomplicated; I48.91 Unspecified atrial fibrillation; Z79.899 Other long term (current) drug therapy; Z87.891 Personal history of nicotine dependence
CPT/HCPCS: 36415; 80053; 88305; 88342; J2704; J3010

== ENCOUNTER 2021-09-09 08:06 | Outpatient (CLI) | payer BC | END 2021-09-09 08:07 | disposition home or self-care (01) | LOC: BICMAMMO 08:06 | PROVIDERS: ATTEND Internal Medicine | DX: Z12.31 Encounter for screening mammogram for malignant neoplasm of breast (principal) | CPT/HCPCS: 77063; 77067 ==

== ENCOUNTER 2022-01-26 14:43 | Outpatient (CLI) | payer BC | END 2022-01-26 14:44 | disposition home or self-care (01) | LOC: BICULT 14:43 | PROVIDERS: ATTEND Internal Medicine Gastroenterology | DX: R60.0 Localized edema (principal) ==

== ENCOUNTER 2022-05-21 09:03 | Outpatient (CLI) | payer BC ==
[2022-05-21] MEDS ORDERED: Iopamidol-370 76% 500 ML 1 ML ONE (14:33)
== END 2022-05-21 09:04 | disposition home or self-care (01) ==
LOC: BICCT 09:03
PROVIDERS: ATTEND Physician Assistant Medical
DX: K70.31 Alcoholic cirrhosis of liver with ascites (principal); K42.9 Umbilical hernia without obstruction or gangrene; R16.1 Splenomegaly, not elsewhere classified; K63.89 Other specified diseases of intestine
CPT/HCPCS: 74177; Q9967

== ENCOUNTER 2022-06-29 08:13 | Outpatient (CLI) | payer BC ==
[2022-06-29 10:51] LABS: INR-International Normal Ratio 1.2; PTT 33.6 sec (22.0-33.0); Prothrombin Time 12.5 sec (9.5-12.1)
[2022-06-29 10:55] LABS: ALT (SGPT) 30 U/L (8-55); AST (SGOT) 55 U/L (5-34); Albumin 3.7 g/dL (3.5-5.0); Alkaline Phosphatase 225 U/L (40-110); Anion Gap 13 mmol/L (10-20); BUN (Urea Nitrogen) 13 mg/dL (9.8-20.1); Bilirubin, Direct 1.2 mg/dL (0.1-0.3); Bilirubin, Total 2.5 mg/dL (0.2-1.2); Calc. Creatinine Clearance 0 mL/min (70-130); Calcium 8.8 mg/dL (7.8-10.44); Carbon Dioxide 25 mmol/L (22-29); Chloride 105 mmol/L (98-107); Estimated GFR 101; Glucose 98 mg/dL (70-105); Potassium 4.7 mmol/L (3.5-5.1); Protein, Total 6.6 g/dL (6.0-8.3); Sodium 138 mmol/L (136-145)
[2022-06-29 10:58] LABS: #Eosinphils 0.1 10x3/uL (0.0-0.5); #Monocytes 0.4 10x3/uL (0.0-1.1); #Neutrophils 3.2 10x3/uL (1.5-8.4); %Basophils 0.5 % (0.0-2.0); %Eosinophils 1.7 % (0.0-6.0); %Lymphocytes 8.7 % (18.0-47.0); %Monocytes 9.4 % (0.0-10.0); %Neutrophils 79.2 % (40.0-75.0); Hemoglobin 11.7 g/dL (12.0-15.5); Mean Corpuscular HGB CONC 33.7 g/dL (32.0-36.0); Mean Corpuscular Hemoglobin 31.5 pg (27.0-33.0); Mean Corpuscular Volume 93.3 fl (81.6-98.3); Mean Platelet Volume 10.7 fl (7.4-10.4); Platelet Count 68 10x3/uL (150-450); RBC Distribution Width 14.3 % (11.5-14.5); Red Blood Cell (RBC) Count 3.72 10x6/uL (3.90-5.03)
== END 2022-06-29 08:14 | disposition home or self-care (01) ==
LOC: LABBT 08:13
PROVIDERS: ATTEND Surgery
DX: Z01.818 Encounter for other preprocedural examination (principal); K43.9 Ventral hernia without obstruction or gangrene
CPT/HCPCS: 80048; 80076; 85025; 85610; 85730; 93005; 93010

== ENCOUNTER 2022-07-02 06:15 | Day surgery (SDC) | payer BC ==
[2022-06-30 12:15] VITALS: BMI 29.6
[2022-07-02] MEDS ORDERED: Bupivacaine/Epinephrine 0.25% 30 ML VIAL ONE (08:41)
[2022-07-02] MEDS ORDERED: Famotidine/PF 20 mg/2ml Vial ONE (08:44)
[2022-07-02] MEDS ORDERED: fentaNYL Citrate/PF 100 MCG/2 ML SYRINGE ONE (08:44)
[2022-07-02] MEDS ORDERED: Sodium Chloride 0.9% 100 ML ONE (08:51)
[2022-07-02] MEDS ORDERED: CEFAZOLIN 2 GM VIAL ONE (08:51)
[2022-07-02] MEDS ORDERED: Ondansetron PF 4 MG/2 ML Vial ONE (09:04)
[2022-07-02] MEDS ORDERED: Dexamethasone 20 MG/5 ML VIAL ONE (09:04)
[2022-07-02] MEDS ORDERED: NEOSTIGMINE 3 MG/3 ML SYR 3 MG/3 ML SYRINGE ONE (09:04)
[2022-07-02] MEDS ORDERED: Rocuronium Bromide 10 MG/ML (10ML VIAL) ONE (09:04)
[2022-07-02] MEDS ORDERED: Ketorolac Tromethamine 30 MG/ML VIAL ONE (09:04)
[2022-07-02] MEDS ORDERED: Glycopyrrolate 0.2 MG/ML 5 ML SYRINGE ONE (09:04)
[2022-07-02] MEDS ORDERED: PROPOFOL 200 MG/20 ML VIAL ONE (09:04)
== END 2022-07-02 12:50 | disposition home or self-care (01) ==
LOC: SDC 06:15
PROVIDERS: ATTEND Surgery
PROC: 0WUF0JZ Supplement Abdominal Wall with Synthetic Substitute, Open Approach (ICD-10-PCS; principal; 2022-07-02)
DX: K43.9 Ventral hernia without obstruction or gangrene (principal); I48.91 Unspecified atrial fibrillation; E07.9 Disorder of thyroid, unspecified; Z87.891 Personal history of nicotine dependence; Z79.890 Hormone replacement therapy; Z79.899 Other long term (current) drug therapy
CPT/HCPCS: C1889; J1100; J1885; J2405; J2704; J3490; S0028

== ENCOUNTER 2022-07-15 08:13 | Observation (INO) | payer BC ==
[2022-07-15] MEDS ORDERED: Ondansetron PF 4 MG/2 ML Vial IVP PRN (09:43)
[2022-07-15] MEDS ORDERED: Bisacodyl 5 MG TAB PO PRN (09:43)
[2022-07-15 10:24] LABS: #Eosinphils 0.1 thou/uL (0.0-0.7); #Lymphocytes 0.4 thou/uL (1.20-3.40); #Monocytes 0.5 thou/uL (0.11-0.59); #Neutrophils 4.2 thou/uL (1.40-6.50); %Basophils 0.5 % (0.0-1.0); %Eosinophils 1.3 % (0.0-10.0); %Lymphocytes 7.6 % (21.0-51.0); %Neutrophils 81.7 % (42.0-75.0); Hemoglobin 11.1 g/dL (12.0-16.0); Mean Corpuscular HGB CONC 32.9 g/dL (32.0-36.0); Mean Corpuscular Hemoglobin 32.1 pg (27.0-31.0); Mean Corpuscular Volume 97.6 fl (78.0-98.0); Mean Platelet Volume 8.5 fL (7.4-10.4); Platelet Count 68 10x3/uL (130-400); Red Blood Cell (RBC) Count 3.46 mill/uL (4.20-5.40); White Blood Cell (WBC) Count 5.2 10x3/uL (4.8-10.8)
[2022-07-15 10:30] LABS: INR-International Normal Ratio 1.3
[2022-07-15 10:40] LABS: ALT (SGPT) 27 U/L (8-55); AST (SGOT) 47 U/L (5-34); Albumin 3.5 g/dL (3.5-5.0); Alkaline Phosphatase 218 U/L (40-110); Anion Gap 12 mmol/L (10-20); BUN (Urea Nitrogen) 11 mg/dL (9.8-20.1); Bilirubin, Total 3.2 mg/dL (0.2-1.2); Calc. Creatinine Clearance 139 mL/min (70-130); Calcium 8.6 mg/dL (7.8-10.44); Carbon Dioxide 25 mmol/L (22-29); Chloride 104 mmol/L (98-107); Estimated GFR 102; Globulin 2.6 g/dL (2.4-3.5); Glucose 98 mg/dL (70-105); Protein, Total 6.1 g/dL (6.0-8.3); Sodium 137 mmol/L (136-145)
[2022-07-15] MEDS ORDERED: Furosemide 40 MG/4 ML VIAL SLOW IVP SCH (11:45)
[2022-07-15] MEDS: Albumin 25% 25 GM/100 ML BOT IVPB SCH ×2 (11:49→17:02)
[2022-07-15] MEDS ORDERED: Pregabalin 50 MG CAP PO SCH (12:45)
[2022-07-15] MEDS ORDERED: Lidocaine 2% PF 5 ML VIAL ONE (13:46)
[2022-07-15] MEDS ORDERED: Sodium Bicarbonate 2.5 MEQ/5 ML VIAL ONE (13:46)
[2022-07-15 15:22] LABS: RBC Count-Automated (BF) 1032 /cu.mm; WBC/Nucleated-Auto (BF) 499 /cu.mm
[2022-07-15 15:37] LABS: BF Color Yellow; Body Fluid Source Ascites Body Fluid; Clarity Hazy (Clear); Tube # EDTA
[2022-07-15 15:39] LABS: BF Segmented Neutrophils 45 %; Cell Count Non Hematic 51 %; Lymphocytes 4 %
[2022-07-15] MEDS: Spironolactone 100 MG TAB PO SCH (17:02)
[2022-07-15] MEDS: Pregabalin 50 MG CAP PO SCH (21:54)
[2022-07-15] MEDS: Flecainide 50 MG TAB PO SCH (21:54)
[2022-07-16] MEDS: Albumin 25% 25 GM/100 ML BOT IVPB SCH ×2 (00:23→05:35)
[2022-07-16 05:53] LABS: #Eosinphils 0.1 thou/uL (0.0-0.7); #Lymphocytes 0.5 thou/uL (1.20-3.40); #Monocytes 0.4 thou/uL (0.11-0.59); #Neutrophils 3.3 thou/uL (1.40-6.50); %Basophils 0.1 % (0.0-1.0); %Eosinophils 1.3 % (0.0-10.0); %Lymphocytes 10.6 % (21.0-51.0); %Monocytes 8.4 % (0.0-10.0); %Neutrophils 79.6 % (42.0-75.0); Hemoglobin 10.1 g/dL (12.0-16.0); Mean Corpuscular HGB CONC 32.5 g/dL (32.0-36.0); Mean Corpuscular Hemoglobin 31.2 pg (27.0-31.0); Mean Platelet Volume 8.3 fL (7.4-10.4); Platelet Count 55 10x3/uL (130-400); RBC Distribution Width 12.9 % (11.5-14.5); Red Blood Cell (RBC) Count 3.23 mill/uL (4.20-5.40); White Blood Cell (WBC) Count 4.2 10x3/uL (4.8-10.8)
[2022-07-16] MEDS ORDERED: Levothyroxine 175 MCG TAB PO SCH (06:00)
[2022-07-16 06:07] LABS: Anion Gap 12 mmol/L (10-20); BUN (Urea Nitrogen) 10 mg/dL (9.8-20.1); Calc. Creatinine Clearance 146 mL/min (70-130); Calcium 8.3 mg/dL (7.8-10.44); Carbon Dioxide 24 mmol/L (22-29); Chloride 103 mmol/L (98-107); Estimated GFR 103; Glucose 96 mg/dL (70-105); Potassium 3.9 mmol/L (3.5-5.1); Sodium 135 mmol/L (136-145)
[2022-07-16] MEDS: Sertraline 25 MG TAB PO SCH (08:57)
[2022-07-16] MEDS: Spironolactone 100 MG TAB PO SCH ×2 (08:57→16:50)
[2022-07-16] MEDS: Metoprolol Tartrate 25 MG TAB PO SCH (08:57)
[2022-07-16] MEDS: Thiamine 100 MG TAB PO SCH (08:57)
[2022-07-16] MEDS: Multivit, Therapeutic 1 TAB PO SCH (08:57)
[2022-07-16] MEDS: Pregabalin 50 MG CAP PO SCH ×3 (08:57→20:23)
[2022-07-16] MEDS: Flecainide 50 MG TAB PO SCH ×2 (08:57→20:23)
[2022-07-16] MEDS: cefTRIAXone\\ROCEPHIN 2 GM in Sodium Chloride 0.9% 100 ML IVPB SCH (08:58)
[2022-07-16] MEDS: Folic Acid 1 MG TAB PO SCH (08:58)
[2022-07-17 04:39] VITALS: BMI 31.4
[2022-07-17 05:32] LABS: #Eosinphils 0.1 thou/uL (0.0-0.7); #Lymphocytes 0.4 thou/uL (1.20-3.40); #Monocytes 0.5 thou/uL (0.11-0.59); #Neutrophils 3.4 thou/uL (1.40-6.50); %Lymphocytes 9.7 % (21.0-51.0); %Monocytes 11.6 % (0.0-10.0); %Neutrophils 76.7 % (42.0-75.0); Hemoglobin 10.4 g/dL (12.0-16.0); Mean Corpuscular HGB CONC 32.6 g/dL (32.0-36.0); Mean Corpuscular Hemoglobin 31.4 pg (27.0-31.0); Mean Corpuscular Volume 96.3 fl (78.0-98.0); Platelet Count 58 10x3/uL (130-400); RBC Distribution Width 12.7 % (11.5-14.5); Red Blood Cell (RBC) Count 3.31 mill/uL (4.20-5.40); White Blood Cell (WBC) Count 4.5 10x3/uL (4.8-10.8)
[2022-07-17 05:57] LABS: ALT (SGPT) 18 U/L (8-55); AST (SGOT) 30 U/L (5-34); Albumin 3.4 g/dL (3.5-5.0); Alkaline Phosphatase 153 U/L (40-110); Anion Gap 9 mmol/L (10-20); BUN (Urea Nitrogen) 9 mg/dL (9.8-20.1); Bilirubin, Total 2.5 mg/dL (0.2-1.2); Calc. Creatinine Clearance 156 mL/min (70-130); Calcium 8.4 mg/dL (7.8-10.44); Carbon Dioxide 23 mmol/L (22-29); Chloride 105 mmol/L (98-107); Estimated GFR 105; Globulin 2.3 g/dL (2.4-3.5); Glucose 92 mg/dL (70-105); Protein, Total 5.7 g/dL (6.0-8.3); Sodium 133 mmol/L (136-145)
[2022-07-17] MEDS ORDERED: Spironolactone 100 MG TAB PO SCH (06:00)
[2022-07-17] MEDS: Pregabalin 50 MG CAP PO SCH (09:38)
[2022-07-17] MEDS: Sertraline 25 MG TAB PO SCH (09:39)
[2022-07-17] MEDS: Multivit, Therapeutic 1 TAB PO SCH (09:39)
[2022-07-17] MEDS: Folic Acid 1 MG TAB PO SCH (09:39)
[2022-07-17] MEDS: cefTRIAXone\\ROCEPHIN 2 GM in Sodium Chloride 0.9% 100 ML IVPB SCH ×2 (09:39→10:18)
[2022-07-17] MEDS: Thiamine 100 MG TAB PO SCH (09:39)
[2022-07-17] MEDS: Metoprolol Tartrate 25 MG TAB PO SCH (09:41)
[2022-07-17] MEDS: Flecainide 50 MG TAB PO SCH (09:44)
[2022-07-17 11:35] VITALS: BP 106/68; TEMP 98.4
== END 2022-07-17 12:13 | disposition home or self-care (01) ==
LOC: SURG B 09:09
PROVIDERS: ADMIT Internal Medicine; ATTEND Internal Medicine
PROC: 0W9G3ZX Drainage of Peritoneal Cavity, Percutaneous Approach, Diagnostic (ICD-10-PCS; principal; 2022-07-15)
DX: K70.31 Alcoholic cirrhosis of liver with ascites (principal); K72.90 Hepatic failure, unspecified without coma; I48.0 Paroxysmal atrial fibrillation; E03.9 Hypothyroidism, unspecified; I10 Essential (primary) hypertension; G62.9 Polyneuropathy, unspecified; F10.11 Alcohol abuse, in remission; Z79.890 Hormone replacement therapy; Z79.899 Other long term (current) drug therapy; Z20.822 Contact with and (suspected) exposure to COVID-19
CPT/HCPCS: 36415; 49083; 76705; 80048; 80053; 82042; 84157; 85025; 85060; 85610; 85730; 86850; 86900; 86901; 87070; 87205; 88112; 88305; 88341; 88342; 89051; 96365; 96375; 96376; G0378; J0696; J1940; J2001; J3490; P9047; U0003; U0005

== ENCOUNTER 2022-07-29 09:56 | Emergency (ER) | payer BC ==
[2022-07-29] MEDS ORDERED: Lidocaine 1% PF 5 ML VIAL ONE ×2 (10:50)
[2022-07-29] MEDS ORDERED: Albumin 25% 25 GM/100 ML BOT IVPB SCH (11:00)
[2022-07-29 11:08] LABS: #Eosinphils 0.1 thou/uL (0.0-0.7); #Lymphocytes 0.3 thou/uL (1.20-3.40); #Monocytes 0.3 thou/uL (0.11-0.59); #Neutrophils 2.8 thou/uL (1.40-6.50); %Eosinophils 1.5 % (0.0-10.0); %Lymphocytes 9.1 % (21.0-51.0); %Monocytes 8.7 % (0.0-10.0); %Neutrophils 80.8 % (42.0-75.0); Mean Corpuscular HGB CONC 32.9 g/dL (32.0-36.0); Mean Corpuscular Hemoglobin 32.2 pg (27.0-31.0); Mean Platelet Volume 8.2 fL (7.4-10.4); Platelet Count 61 10x3/uL (130-400); RBC Distribution Width 13.4 % (11.5-14.5); Red Blood Cell (RBC) Count 3.12 mill/uL (4.20-5.40); White Blood Cell (WBC) Count 3.5 10x3/uL (4.8-10.8)
[2022-07-29 11:25] LABS: ALT (SGPT) 23 U/L (8-55); AST (SGOT) 45 U/L (5-34); Albumin 3.4 g/dL (3.5-5.0); Alkaline Phosphatase 208 U/L (40-110); Anion Gap 11 mmol/L (10-20); BUN (Urea Nitrogen) 12 mg/dL (9.8-20.1); Bilirubin, Total 2.5 mg/dL (0.2-1.2); Calc. Creatinine Clearance 0 mL/min (70-130); Calcium 8.1 mg/dL (7.8-10.44); Carbon Dioxide 24 mmol/L (22-29); Chloride 109 mmol/L (98-107); Estimated GFR 104; Globulin 2.3 g/dL (2.4-3.5); Glucose 89 mg/dL (70-105); Potassium 3.5 mmol/L (3.5-5.1); Protein, Total 5.7 g/dL (6.0-8.3); Sodium 140 mmol/L (136-145)
== END 2022-07-29 14:40 | disposition home or self-care (01) ==
LOC: ERS 09:56
DX: L03.311 Cellulitis of abdominal wall (principal); R18.8 Other ascites; I48.91 Unspecified atrial fibrillation; E03.9 Hypothyroidism, unspecified; Z87.891 Personal history of nicotine dependence; Z79.899 Other long term (current) drug therapy
CPT/HCPCS: 36415; 49083; 80053; 83605; 85025; 96365; P9047

== ENCOUNTER 2022-08-11 13:00 | Day surgery (SDC) | payer BC ==
[2022-08-10 11:09] VITALS: BMI 31.0
[2022-08-11] MEDS ORDERED: Sodium Bicarbonate 2.5 MEQ/5 ML VIAL ONE (13:54)
[2022-08-11] MEDS ORDERED: Lidocaine 2% PF 5 ML VIAL ONE (13:54)
[2022-08-11] MEDS ORDERED: Albumin 25% 100 ML ONE (14:29)
[2022-08-11 15:58] VITALS: BP 99/56
== END 2022-08-11 15:25 | disposition home or self-care (01) ==
LOC: ULT 13:00
PROVIDERS: ATTEND Physician Assistant Medical
PROC: 0W9G3ZZ Drainage of Peritoneal Cavity, Percutaneous Approach (ICD-10-PCS; principal; 2022-08-11)
DX: K70.31 Alcoholic cirrhosis of liver with ascites (principal); I48.91 Unspecified atrial fibrillation; I10 Essential (primary) hypertension; F10.11 Alcohol abuse, in remission; Z87.891 Personal history of nicotine dependence; Z79.890 Hormone replacement therapy; Z79.899 Other long term (current) drug therapy
CPT/HCPCS: 49083; J2001; P9047

== ENCOUNTER 2022-08-25 10:42 | Outpatient (CLI) | payer BC | END 2022-08-25 10:43 | disposition home or self-care (01) | LOC: BICCT 10:42 | PROVIDERS: ATTEND Physician Assistant Medical | DX: K70.31 Alcoholic cirrhosis of liver with ascites (principal); J90 Pleural effusion, not elsewhere classified; R16.1 Splenomegaly, not elsewhere classified; K43.9 Ventral hernia without obstruction or gangrene | CPT/HCPCS: 74150 ==

== ENCOUNTER 2022-08-25 12:13 | Day surgery (SDC) | payer BC ==
[2022-08-24 14:42] VITALS: BMI 29.6
[~2022-08-25 12:13] MED LIST: FLU VACC QS2022-23(6MOS UP)/PF 60 MCG/0.5 ML SYRINGE IM ONE
[2022-08-25] MEDS ORDERED: Lidocaine 1% PF 5 ML VIAL ONE ×2 (12:36→13:21)
[2022-08-25] MEDS ORDERED: Sodium Bicarbonate 2.5 MEQ/5 ML VIAL ONE (12:36)
[2022-08-25 12:43] LABS: #Eosinphils 0.1 thou/uL (0.0-0.7); #Lymphocytes 0.4 thou/uL (1.20-3.40); #Monocytes 0.4 thou/uL (0.11-0.59); #Neutrophils 3.4 thou/uL (1.40-6.50); %Basophils 0.4 % (0.0-1.0); %Eosinophils 1.5 % (0.0-10.0); %Lymphocytes 9.8 % (21.0-51.0); %Monocytes 8.5 % (0.0-10.0); %Neutrophils 79.8 % (42.0-75.0); Hemoglobin 10.8 g/dL (12.0-16.0); Mean Corpuscular HGB CONC 32.4 g/dL (32.0-36.0); Mean Corpuscular Hemoglobin 31.7 pg (27.0-31.0); Mean Corpuscular Volume 97.8 fl (78.0-98.0); Mean Platelet Volume 8.7 fL (7.4-10.4); Platelet Count 57 10x3/uL (130-400); RBC Distribution Width 13.2 % (11.5-14.5); White Blood Cell (WBC) Count 4.2 10x3/uL (4.8-10.8)
[2022-08-25 12:56] LABS: INR-International Normal Ratio 1.4; PTT 43.1 sec (22.9-36.1); Prothrombin Time 17.3 sec (12.0-14.7)
[2022-08-25 14:24] VITALS: BP 93/56; TEMP 98
== END 2022-08-25 14:12 | disposition home or self-care (01) ==
LOC: ULT 12:13
PROVIDERS: ATTEND Physician Assistant Medical
PROC: 0W9G3ZZ Drainage of Peritoneal Cavity, Percutaneous Approach (ICD-10-PCS; principal; 2022-08-25)
DX: K70.31 Alcoholic cirrhosis of liver with ascites (principal); I85.10 Secondary esophageal varices without bleeding; F10.11 Alcohol abuse, in remission; I48.91 Unspecified atrial fibrillation; I10 Essential (primary) hypertension; Z87.891 Personal history of nicotine dependence; Z79.890 Hormone replacement therapy; Z79.899 Other long term (current) drug therapy; J90 Pleural effusion, not elsewhere classified; R16.1 Splenomegaly, not elsewhere classified; K43.9 Ventral hernia without obstruction or gangrene
CPT/HCPCS: 36415; 49083; 74150; 85025; 85610; 85730

== ENCOUNTER 2022-09-08 09:23 | Day surgery (SDC) | payer BC ==
[2022-09-03 13:27] VITALS: BMI 29.6
[~2022-09-08 09:23] MED LIST changes: -FLU VACC QS2022-23(6MOS UP)/PF 60 MCG/0.5 ML SYRINGE IM ONE; +Lidocaine 1% PF 5 ML VIAL ONE; +Sodium Bicarbonate 2.5 MEQ/5 ML VIAL ONE
[2022-09-08 11:06] VITALS: BP 115/55; TEMP 98
== END 2022-09-08 10:35 | disposition short-term general hospital (02) ==
LOC: ULT 09:23
PROVIDERS: ATTEND Physician Assistant Medical
PROC: 0W9G3ZZ Drainage of Peritoneal Cavity, Percutaneous Approach (ICD-10-PCS; principal; 2022-09-08)
DX: K70.31 Alcoholic cirrhosis of liver with ascites (principal); I85.00 Esophageal varices without bleeding; Z79.890 Hormone replacement therapy; Z79.899 Other long term (current) drug therapy
CPT/HCPCS: 49083

== ENCOUNTER → 2022-09-22 | Day surgery (SDC) | payer BC ==
[2022-09-21 13:39] VITALS: BMI 31.0
== END | disposition home or self-care (01) ==
LOC: ULT 08:17
PROVIDERS: ATTEND Physician Assistant Medical
DX: R18.8 Other ascites (principal); Z53.8 Procedure and treatment not carried out for other reasons; Z79.890 Hormone replacement therapy; Z79.899 Other long term (current) drug therapy
CPT/HCPCS: 76705

== ENCOUNTER → 2022-10-13 | Day surgery (SDC) | payer BC ==
[2022-10-12 10:21] VITALS: BMI 31.0
[~2022-10-13] MED LIST changes: +Albumin 25% 0 ML ONE; +FLU VACC QS2022-23(6MOS UP)/PF 60 MCG/0.5 ML SYRINGE IM ONE
[2022-10-13 08:39] LABS: #Eosinphils 0.1 thou/uL (0.0-0.7); #Lymphocytes 0.4 thou/uL (1.20-3.40); #Monocytes 0.6 thou/uL (0.11-0.59); #Neutrophils 6.4 thou/uL (1.40-6.50); %Basophils 0.1 % (0.0-1.0); %Lymphocytes 5.8 % (21.0-51.0); %Monocytes 7.9 % (0.0-10.0); %Neutrophils 84.2 % (42.0-75.0); Hemoglobin 10.7 g/dL (12.0-16.0); Mean Corpuscular HGB CONC 32.7 g/dL (32.0-36.0); Mean Corpuscular Hemoglobin 31.3 pg (27.0-31.0); Mean Corpuscular Volume 95.8 fl (78.0-98.0); Mean Platelet Volume 9.1 fL (7.4-10.4); Platelet Count 81 10x3/uL (130-400); RBC Distribution Width 13.5 % (11.5-14.5); Red Blood Cell (RBC) Count 3.41 mill/uL (4.20-5.40); White Blood Cell (WBC) Count 7.5 10x3/uL (4.8-10.8)
[2022-10-13 08:40] LABS: INR-International Normal Ratio 1.4; PTT 38.3 sec (22.9-36.1); Prothrombin Time 17.3 sec (12.0-14.7)
== END | disposition home or self-care (01) ==
LOC: ULT 08:17
PROVIDERS: ATTEND Internal Medicine Hepatology
DX: R18.8 Other ascites (principal); Z53.8 Procedure and treatment not carried out for other reasons
CPT/HCPCS: 76705; 85025; 85610; 85730; P9047

== ENCOUNTER → 2022-10-21 | Day surgery (SDC) | payer BC ==
[2022-10-19 09:38] VITALS: BMI 31.0
== END | disposition home or self-care (01) ==
LOC: ULT 12:07
PROVIDERS: ATTEND Internal Medicine Hepatology
DX: R18.8 Other ascites (principal); Z53.8 Procedure and treatment not carried out for other reasons; Z79.890 Hormone replacement therapy; Z79.899 Other long term (current) drug therapy
CPT/HCPCS: 76705

== ENCOUNTER 2022-10-28 07:16 | Day surgery (SDC) | payer BC ==
[2022-10-23 08:30] VITALS: BMI 31.0
[2022-10-28] MEDS ORDERED: Albumin 25% 0 ML ONE (07:39)
[2022-10-28] MEDS ORDERED: Lidocaine 1% PF 5 ML VIAL ONE (07:39)
[2022-10-28] MEDS ORDERED: Sodium Bicarbonate 2.5 MEQ/5 ML VIAL ONE (07:39)
== END 2022-10-28 08:31 | disposition home or self-care (01) ==
LOC: ULT 07:16
PROVIDERS: ATTEND Internal Medicine Hepatology
DX: R18.8 Other ascites (principal); Z53.8 Procedure and treatment not carried out for other reasons; Z79.890 Hormone replacement therapy; Z79.899 Other long term (current) drug therapy
CPT/HCPCS: 76705; P9047

== ENCOUNTER 2022-11-04 07:41 | Day surgery (SDC) | payer BC ==
[2022-11-04 07:53] LABS: #Eosinphils 0.1 thou/uL (0.0-0.7); #Lymphocytes 0.4 thou/uL (1.20-3.40); #Monocytes 0.6 thou/uL (0.11-0.59); #Neutrophils 4.8 thou/uL (1.40-6.50); %Basophils 0.2 % (0.0-1.0); %Eosinophils 1.4 % (0.0-10.0); %Lymphocytes 6.5 % (21.0-51.0); %Monocytes 10.8 % (0.0-10.0); %Neutrophils 81.1 % (42.0-75.0); Hemoglobin 10.3 g/dL (12.0-16.0); Mean Corpuscular Hemoglobin 31.9 pg (27.0-31.0); Mean Corpuscular Volume 99.4 fl (78.0-98.0); Mean Platelet Volume 8.4 fL (7.4-10.4); Platelet Count 81 10x3/uL (130-400); RBC Distribution Width 14.9 % (11.5-14.5); Red Blood Cell (RBC) Count 3.24 mill/uL (4.20-5.40); White Blood Cell (WBC) Count 5.9 10x3/uL (4.8-10.8)
[2022-11-04 08:01] LABS: INR-International Normal Ratio 1.3; Prothrombin Time 16.4 sec (12.0-14.7)
[2022-11-04 08:02] LABS: PTT 39.2 sec (22.9-36.1)
[2022-11-04] MEDS ORDERED: Lidocaine 1% PF 5 ML VIAL ONE (08:33)
[2022-11-04] MEDS ORDERED: Sodium Bicarbonate 2.5 MEQ/5 ML VIAL ONE (08:33)
[2022-11-04] MEDS ORDERED: Albumin 25% 100 ML ONE (08:33)
[2022-11-04 10:52] LABS: RBC Count-Automated (BF) 56 /cu.mm; WBC/Nucleated-Auto (BF) 79 /cu.mm
[2022-11-04 11:09] LABS: BF Color Colorless; Body Fluid Source Ascites Body Fluid; Clarity Hazy (Clear); Tube # EDTA
[2022-11-04 12:24] LABS: BF Segmented Neutrophils 3 %; Cell Count Non Hematic 88 %; Lymphocytes 9 %
== END 2022-11-04 10:05 | disposition home or self-care (01) ==
LOC: ULT 07:41
PROVIDERS: ATTEND Internal Medicine Hepatology
PROC: 0W9G3ZX Drainage of Peritoneal Cavity, Percutaneous Approach, Diagnostic (ICD-10-PCS; principal; 2022-11-04)
DX: K70.31 Alcoholic cirrhosis of liver with ascites (principal)
CPT/HCPCS: 49083; 84157; 85025; 85060; 85610; 85730; 87070; 87077; 87205; 89051; P9047

== ENCOUNTER 2022-11-06 14:26 | Emergency (ER) | payer BC ==
[2022-11-06 17:40] LABS: Hemoglobin 9.6 g/dL (12.0-16.0); Mean Corpuscular HGB CONC 32.6 g/dL (32.0-36.0); Mean Corpuscular Hemoglobin 32.8 pg (27.0-31.0); Mean Platelet Volume 8.2 fL (7.4-10.4); Platelet Count 65 10x3/uL (130-400); Red Blood Cell (RBC) Count 2.93 mill/uL (4.20-5.40)
[2022-11-06 17:57] LABS: ALT (SGPT) 39 U/L (8-55); AST (SGOT) 55 U/L (5-34); Albumin 3.3 g/dL (3.5-5.0); Alkaline Phosphatase 185 U/L (40-110); Anion Gap 11 mmol/L (10-20); BUN (Urea Nitrogen) 15 mg/dL (9.8-20.1); Bilirubin, Total 1.7 mg/dL (0.2-1.2); Calc. Creatinine Clearance 0 mL/min (70-130); Calcium 8.1 mg/dL (7.8-10.44); Carbon Dioxide 24 mmol/L (22-29); Chloride 100 mmol/L (98-107); Estimated GFR 103; Globulin 2.6 g/dL (2.4-3.5); Glucose 85 mg/dL (70-105); Potassium 3.4 mmol/L (3.5-5.1); Protein, Total 5.9 g/dL (6.0-8.3); Sodium 132 mmol/L (136-145)
[2022-11-06 18:06] LABS: #Eosinphils 0.1 thou/uL (0.0-0.7); #Lymphocytes 0.4 thou/uL (1.20-3.40); #Monocytes 0.7 thou/uL (0.11-0.59); #Neutrophils 4.8 thou/uL (1.40-6.50); %Basophils 0.4 % (0.0-1.0); %Lymphocytes 7.2 % (21.0-51.0); %Neutrophils 79.3 % (42.0-75.0); MDiff Complete? YES; Macrocytosis SLIGHT = 6-15 cells (100X) (0-5/hpf); Platelet Morphology Comment Appears Decreased
== END 2022-11-06 19:20 | disposition home or self-care (01) ==
LOC: ERS 14:26
DX: Z00.01 Encounter for general adult medical examination with abnormal findings (principal); I48.91 Unspecified atrial fibrillation; E03.9 Hypothyroidism, unspecified; Z87.891 Personal history of nicotine dependence; Z79.899 Other long term (current) drug therapy
CPT/HCPCS: 36415; 80053; 83605; 85025; 87040; 99283

== ENCOUNTER → 2022-11-18 | Day surgery (SDC) | payer BC ==
[2022-11-16 09:34] VITALS: BMI 28.1
[~2022-11-18] MED LIST changes: -Albumin 25% 0 ML ONE; +Albumin 25% 200 ML ONE
[2022-11-18 13:01] LABS: RBC Count-Automated (BF) 112 /cu.mm; WBC/Nucleated-Auto (BF) 161 /cu.mm
[2022-11-18 13:44] LABS: Body Fluid Source Ascites Body Fluid; Tube # EDTA
[2022-11-18 13:46] LABS: BF Color Colorless; Clarity Hazy (Clear)
[2022-11-18 13:47] LABS: BF Segmented Neutrophils 8 %; Cell Count Non Hematic 77 %; Lymphocytes 15 %
== END | disposition home or self-care (01) ==
LOC: ULT 07:54
PROVIDERS: ATTEND Internal Medicine Hepatology
PROC: 0W9G3ZX Drainage of Peritoneal Cavity, Percutaneous Approach, Diagnostic (ICD-10-PCS; principal; 2022-11-18)
DX: K70.31 Alcoholic cirrhosis of liver with ascites (principal); Z79.890 Hormone replacement therapy; Z79.899 Other long term (current) drug therapy
CPT/HCPCS: 49083; 85060; 87070; 87205; 89051; P9047

== ENCOUNTER 2022-12-02 07:47 | Day surgery (SDC) | payer BC ==
[2022-11-30 13:01] VITALS: BMI 28.1
[2022-12-02] MEDS ORDERED: Lidocaine 1% PF 5 ML VIAL ONE (08:13)
[2022-12-02] MEDS ORDERED: Sodium Bicarbonate 2.5 MEQ/5 ML VIAL ONE (08:13)
[2022-12-02 09:11] VITALS: BP 98/44
== END 2022-12-02 08:45 | disposition home or self-care (01) ==
LOC: ULT 07:47
PROVIDERS: ATTEND Internal Medicine Hepatology
DX: K70.31 Alcoholic cirrhosis of liver with ascites (principal); I85.10 Secondary esophageal varices without bleeding; Z53.9 Procedure and treatment not carried out, unspecified reason; Z79.890 Hormone replacement therapy; Z79.899 Other long term (current) drug therapy
CPT/HCPCS: 76705

== ENCOUNTER 2022-12-09 08:00 | Day surgery (SDC) | payer BC ==
[2022-12-09 08:24] LABS: #Eosinphils 0.1 thou/uL (0.0-0.7); #Lymphocytes 0.4 thou/uL (1.20-3.40); #Monocytes 0.8 thou/uL (0.11-0.59); %Basophils 0.4 % (0.0-1.0); %Eosinophils 0.8 % (0.0-10.0); %Lymphocytes 3.3 % (21.0-51.0); %Monocytes 7.1 % (0.0-10.0); %Neutrophils 88.4 % (42.0-75.0); Hemoglobin 10.8 g/dL (12.0-16.0); Mean Corpuscular HGB CONC 32.7 g/dL (32.0-36.0); Mean Corpuscular Hemoglobin 32.9 pg (27.0-31.0); Mean Platelet Volume 9.2 fL (7.4-10.4); Platelet Count 80 10x3/uL (130-400); RBC Distribution Width 14.5 % (11.5-14.5); Red Blood Cell (RBC) Count 3.29 mill/uL (4.20-5.40); White Blood Cell (WBC) Count 11.3 10x3/uL (4.8-10.8)
[2022-12-09 08:37] LABS: INR-International Normal Ratio 1.2; PTT 39.9 sec (22.9-36.1)
[2022-12-09] MEDS ORDERED: Sodium Bicarbonate 2.5 MEQ/5 ML VIAL ONE (09:24)
[2022-12-09] MEDS ORDERED: Lidocaine 1% PF 5 ML VIAL ONE (09:24)
[2022-12-09 15:06] VITALS: BP 111/47; BMI 28.1
== END 2022-12-09 10:50 | disposition home or self-care (01) ==
LOC: ULT 08:00
PROVIDERS: ATTEND Physician Assistant Medical
PROC: 0W9G3ZZ Drainage of Peritoneal Cavity, Percutaneous Approach (ICD-10-PCS; principal; 2022-12-09)
DX: K70.31 Alcoholic cirrhosis of liver with ascites (principal)
CPT/HCPCS: 49083; 85025; 85610; 85730

== ENCOUNTER 2022-12-21 19:17 | Inpatient (IN) | payer BC ==
[2022-12-21] MEDS ORDERED: Furosemide 40 MG/4 ML VIAL ONE (20:07)
[2022-12-21 20:38] LABS: Hemoglobin 10.2 g/dL (12.0-16.0); Mean Corpuscular HGB CONC 32.5 g/dL (32.0-36.0); Mean Corpuscular Volume 98.4 fl (78.0-98.0); Mean Platelet Volume 8.9 fL (7.4-10.4); Platelet Count 76 10x3/uL (130-400); RBC Distribution Width 13.7 % (11.5-14.5); White Blood Cell (WBC) Count 10.4 10x3/uL (4.8-10.8)
[2022-12-21 20:57] LABS: ALT (SGPT) 39 U/L (8-55); AST (SGOT) 58 U/L (5-34); Albumin 3.1 g/dL (3.5-5.0); Alkaline Phosphatase 185 U/L (40-110); Anion Gap 12 mmol/L (10-20); BUN (Urea Nitrogen) 16 mg/dL (9.8-20.1); Bilirubin, Total 1.8 mg/dL (0.2-1.2); Calc. Creatinine Clearance 0 mL/min (70-130); Calcium 8.1 mg/dL (7.8-10.44); Carbon Dioxide 26 mmol/L (22-29); Chloride 96 mmol/L (98-107); Estimated GFR 87; Globulin 2.9 g/dL (2.4-3.5); Glucose 103 mg/dL (70-105); Lipase 86 U/L (8-78); Potassium 3.4 mmol/L (3.5-5.1); Sodium 131 mmol/L (136-145)
[2022-12-21 21:18] LABS: Bilirubin Negative (Negative); Blood, Urine Negative (Negative); Clarity Clear (Clear); Glucose, Urine (Dipstick) Normal (Negative); Ketone, Urine Negative (Negative); Leukocyte Negative Leu/uL (Negative); Nitrite Negative (Negative); Protein, Urine (Dipstick) Negative (Neg-Trace); Urobilinogen Normal mg/dL (Less than 2)
[2022-12-21 21:35] LABS: Band 6 % (5-11); Eosinophils 2 % (0-10); Large Platelets SLIGHT; Lymphocytes 5 % (21-51); MDiff Complete? YES; Macrocytosis SLIGHT = 6-15 cells (100X) (0-5/hpf); Monocytes 8 % (0-10); Neutrophil 79 % (42-75); Ovalocytes SLIGHT = 2-5 cells (100X) (0-1/hpf); Platelet Morphology Comment Appears Decreased; Target Cells SLIGHT = 2-5 cells (100X) (0-1/hpf)
[2022-12-21] MEDS ORDERED: Morphine 4 MG/ML VIAL SLOW IVP PRN (22:41)
[2022-12-21] MEDS ORDERED: Ondansetron PF 4 MG/2 ML Vial IVP PRN (22:45)
[2022-12-21] MEDS ORDERED: Ondansetron ODT 4 MG TAB SL PRN (22:45)
[2022-12-22 01:40] VITALS: BMI 30.5
[2022-12-22 01:54] LABS: Troponin I Less than 0.010 ng/mL (< 0.028)
[2022-12-22] MEDS: Potassium Chloride 20 MEQ in Premix Bag 1 BAG IVPB SCH ×2 (02:37→02:46)
[2022-12-22] MEDS ORDERED: Potassium Chloride 20 MEQ TAB PO SCH (03:15)
[2022-12-22 05:12] LABS: #Lymphocytes 0.3 thou/uL (1.20-3.40); #Monocytes 0.8 thou/uL (0.11-0.59); #Neutrophils 5.8 thou/uL (1.40-6.50); %Basophils 0.2 % (0.0-1.0); %Eosinophils 0.5 % (0.0-10.0); %Lymphocytes 4.8 % (21.0-51.0); %Monocytes 11.9 % (0.0-10.0); %Neutrophils 82.6 % (42.0-75.0); Hemoglobin 9.5 g/dL (12.0-16.0); Mean Corpuscular HGB CONC 32.9 g/dL (32.0-36.0); Mean Corpuscular Hemoglobin 32.7 pg (27.0-31.0); Mean Corpuscular Volume 99.2 fl (78.0-98.0); Mean Platelet Volume 8.6 fL (7.4-10.4); Platelet Count 68 10x3/uL (130-400); RBC Distribution Width 13.7 % (11.5-14.5); White Blood Cell (WBC) Count 7.1 10x3/uL (4.8-10.8)
[2022-12-22 05:38] LABS: ALT (SGPT) 35 U/L (8-55); AST (SGOT) 50 U/L (5-34); Albumin 2.8 g/dL (3.5-5.0); Alkaline Phosphatase 168 U/L (40-110); Anion Gap 12 mmol/L (10-20); BUN (Urea Nitrogen) 16 mg/dL (9.8-20.1); Bilirubin, Total 1.6 mg/dL (0.2-1.2); Calc. Creatinine Clearance 121 mL/min (70-130); Calcium 7.8 mg/dL (7.8-10.44); Carbon Dioxide 25 mmol/L (22-29); Chloride 99 mmol/L (98-107); Estimated GFR 94; Globulin 2.3 g/dL (2.4-3.5); Glucose 137 mg/dL (70-105); Potassium 3.1 mmol/L (3.5-5.1); Protein, Total 5.1 g/dL (6.0-8.3); Sodium 133 mmol/L (136-145); Troponin I Less than 0.010 ng/mL (< 0.028)
[2022-12-22] MEDS: Levothyroxine 150 MCG TAB PO SCH (06:00)
[2022-12-22] MEDS ORDERED: Ferrous Sulfate 325 MG TAB PO SCH (08:00)
[2022-12-22] MEDS: Furosemide 20 MG/2 ML VIAL SLOW IVP SCH (08:47)
[2022-12-22] MEDS: Metoprolol Tartrate 25 MG TAB PO SCH ×2 (08:48→20:13)
[2022-12-22] MEDS: Thiamine 100 MG TAB PO SCH (08:48)
[2022-12-22] MEDS: Pregabalin 50 MG CAP PO SCH ×3 (08:48→20:13)
[2022-12-22] MEDS: Rifaximin 550 MG TAB PO SCH ×2 (08:48→20:13)
[2022-12-22] MEDS: Spironolactone 100 MG TAB PO SCH ×2 (08:49→20:13)
[2022-12-22] MEDS: Sertraline 100 MG TAB PO SCH (08:49)
[2022-12-22] MEDS: Folic Acid 1 MG TAB PO SCH (08:49)
[2022-12-22] MEDS: Flecainide 50 MG TAB PO SCH ×2 (08:51→20:13)
[2022-12-22] MEDS: Ferrous Sulfate 325 MG TAB PO SCH (08:51)
[2022-12-22] MEDS ORDERED: Folic Acid 1 MG TAB PO SCH (09:00)
[2022-12-23] MEDS: Levothyroxine 150 MCG TAB PO SCH (04:51)
[2022-12-23 05:15] LABS: #Eosinphils 0.1 thou/uL (0.0-0.7); #Lymphocytes 0.5 thou/uL (1.20-3.40); #Monocytes 0.9 thou/uL (0.11-0.59); #Neutrophils 5.9 thou/uL (1.40-6.50); %Basophils 0.3 % (0.0-1.0); %Eosinophils 1.4 % (0.0-10.0); %Lymphocytes 7.2 % (21.0-51.0); %Monocytes 12.4 % (0.0-10.0); %Neutrophils 78.6 % (42.0-75.0); Hemoglobin 10.9 g/dL (12.0-16.0); Mean Corpuscular HGB CONC 32.3 g/dL (32.0-36.0); Mean Corpuscular Hemoglobin 32.1 pg (27.0-31.0); Mean Corpuscular Volume 99.4 fl (78.0-98.0); Mean Platelet Volume 9.1 fL (7.4-10.4); Platelet Count 80 10x3/uL (130-400); RBC Distribution Width 13.5 % (11.5-14.5); Red Blood Cell (RBC) Count 3.38 mill/uL (4.20-5.40); White Blood Cell (WBC) Count 7.5 10x3/uL (4.8-10.8)
[2022-12-23 05:22] LABS: ALT (SGPT) 37 U/L (8-55); AST (SGOT) 53 U/L (5-34); Alkaline Phosphatase 174 U/L (40-110); Anion Gap 11 mmol/L (10-20); BUN (Urea Nitrogen) 13 mg/dL (9.8-20.1); Bilirubin, Total 1.6 mg/dL (0.2-1.2); Calc. Creatinine Clearance 128 mL/min (70-130); Calcium 8.3 mg/dL (7.8-10.44); Carbon Dioxide 28 mmol/L (22-29); Chloride 99 mmol/L (98-107); Estimated GFR 101; Glucose 78 mg/dL (70-105); Potassium 3.7 mmol/L (3.5-5.1); Sodium 134 mmol/L (136-145)
[2022-12-23] MEDS: Ferrous Sulfate 325 MG TAB PO SCH (08:08)
[2022-12-23] MEDS: Thiamine 100 MG TAB PO SCH (08:08)
[2022-12-23] MEDS: Flecainide 50 MG TAB PO SCH ×2 (08:09→20:06)
[2022-12-23] MEDS: Rifaximin 550 MG TAB PO SCH ×2 (08:09→20:06)
[2022-12-23] MEDS: Sertraline 100 MG TAB PO SCH (08:09)
[2022-12-23] MEDS: Pregabalin 50 MG CAP PO SCH ×3 (08:09→20:06)
[2022-12-23] MEDS: Spironolactone 100 MG TAB PO SCH ×2 (08:09→20:06)
[2022-12-23] MEDS: Metoprolol Tartrate 25 MG TAB PO SCH ×2 (08:10→20:07)
[2022-12-23] MEDS: Folic Acid 1 MG TAB PO SCH (08:10)
[2022-12-23] MEDS ORDERED: Sodium Bicarbonate 2.5 MEQ/5 ML VIAL ONE (08:52)
[2022-12-23] MEDS ORDERED: Lidocaine 1% PF 5 ML VIAL ONE (08:52)
[2022-12-23] MEDS ORDERED: Albumin 25% 200 ML ONE (08:53)
[2022-12-23] MEDS ORDERED: Albumin 25% 25 GM/100 ML BOT IVPB SCH ×2 (10:00→17:00)
[2022-12-23 12:21] LABS: RBC Count-Automated (BF) 257 /cu.mm; WBC/Nucleated-Auto (BF) 67 /cu.mm
[2022-12-23 12:29] LABS: Body Fluid Source Ascites Body Fluid; Tube # EDTA
[2022-12-23 12:30] LABS: BF Color Yellow; Clarity Hazy (Clear)
[2022-12-23] MEDS: Furosemide 20 MG/2 ML VIAL SLOW IVP SCH (12:38)
[2022-12-23 12:55] LABS: BF Segmented Neutrophils 36 %; Cell Count Non Hematic 57 %; Eosinophils 1 %; Lymphocytes 6 %
[2022-12-24] MEDS: Albumin 25% 25 GM/100 ML BOT IVPB SCH ×3 (00:32→11:44)
[2022-12-24 04:58] LABS: ALT (SGPT) 27 U/L (8-55); AST (SGOT) 40 U/L (5-34); Albumin 3.5 g/dL (3.5-5.0); Alkaline Phosphatase 148 U/L (40-110); Anion Gap 10 mmol/L (10-20); BUN (Urea Nitrogen) 13 mg/dL (9.8-20.1); Bilirubin, Total 1.3 mg/dL (0.2-1.2); Calc. Creatinine Clearance 116 mL/min (70-130); Calcium 8.7 mg/dL (7.8-10.44); Carbon Dioxide 28 mmol/L (22-29); Chloride 99 mmol/L (98-107); Estimated GFR 97; Globulin 2.2 g/dL (2.4-3.5); Glucose 76 mg/dL (70-105); Potassium 3.5 mmol/L (3.5-5.1); Protein, Total 5.7 g/dL (6.0-8.3); Sodium 133 mmol/L (136-145)
[2022-12-24] MEDS: Levothyroxine 150 MCG TAB PO SCH (05:10)
[2022-12-24] MEDS: Rifaximin 550 MG TAB PO SCH (08:13)
[2022-12-24] MEDS: Pregabalin 50 MG CAP PO SCH (08:14)
[2022-12-24] MEDS: Ferrous Sulfate 325 MG TAB PO SCH (08:14)
[2022-12-24] MEDS: Metoprolol Tartrate 25 MG TAB PO SCH (08:14)
[2022-12-24] MEDS: Flecainide 50 MG TAB PO SCH (08:14)
[2022-12-24] MEDS: Sertraline 100 MG TAB PO SCH (08:14)
[2022-12-24] MEDS: Thiamine 100 MG TAB PO SCH (08:14)
[2022-12-24] MEDS: Furosemide 20 MG/2 ML VIAL SLOW IVP SCH (08:15)
[2022-12-24] MEDS: Folic Acid 1 MG TAB PO SCH (08:15)
[2022-12-24] MEDS: Spironolactone 100 MG TAB PO SCH (08:15)
[2022-12-24 11:53] VITALS: BP 101/54; TEMP 97.9
== END 2022-12-24 14:17 | disposition home or self-care (01) | DRG 432 ==
LOC: ERS 19:17 → SUATTDRO 19:17 → 2SW 22:20
PROVIDERS: ADMIT Family Medicine; ATTEND Family Medicine
PROC: 0W9G3ZZ Drainage of Peritoneal Cavity, Percutaneous Approach (ICD-10-PCS; principal; 2022-12-23)
DX: K70.31 Alcoholic cirrhosis of liver with ascites (principal); K65.2 Spontaneous bacterial peritonitis; E87.1 Hypo-osmolality and hyponatremia; Z66 Do not resuscitate; K76.82 Hepatic encephalopathy; I48.91 Unspecified atrial fibrillation; E03.9 Hypothyroidism, unspecified; K21.9 Gastro-esophageal reflux disease without esophagitis; E87.6 Hypokalemia; D53.9 Nutritional anemia, unspecified; K70.11 Alcoholic hepatitis with ascites; Z87.891 Personal history of nicotine dependence; Z79.899 Other long term (current) drug therapy; Z79.890 Hormone replacement therapy
CPT/HCPCS: 36415; 49083; 71045; 80053; 81003; 83605; 83690; 84145; 84484; 85025; 85060; 87040; 87070; 87086; 87205; 89051; 93005; 96374; 96375; J1940; J1956; J3480; P9047

== ENCOUNTER 2022-12-30 08:06 | Day surgery (SDC) | payer BC ==
[2022-12-30] MEDS ORDERED: Sodium Bicarbonate 2.5 MEQ/5 ML VIAL ONE (08:10)
[2022-12-30] MEDS ORDERED: Lidocaine 1% PF 5 ML VIAL ONE (08:10)
[2022-12-30 09:58] VITALS: BP 87/47; TEMP 98.2
== END 2022-12-30 09:30 | disposition home or self-care (01) ==
LOC: ULT 08:06
PROVIDERS: ATTEND Physician Assistant Medical
PROC: 0W9G3ZZ Drainage of Peritoneal Cavity, Percutaneous Approach (ICD-10-PCS; principal; 2022-12-30)
DX: K70.31 Alcoholic cirrhosis of liver with ascites (principal)
CPT/HCPCS: 49083

== ENCOUNTER 2023-01-06 07:41 | Day surgery (SDC) | payer BC ==
[2023-01-06] MEDS ORDERED: Sodium Bicarbonate 2.5 MEQ/5 ML VIAL ONE (08:02)
[2023-01-06] MEDS ORDERED: Lidocaine 1% PF 5 ML VIAL ONE (08:02)
[2023-01-06 10:46] VITALS: BP 101/55
== END 2023-01-06 10:15 | disposition home or self-care (01) ==
LOC: ULT 07:41
PROVIDERS: ATTEND Physician Assistant Medical
PROC: 0W9G3ZZ Drainage of Peritoneal Cavity, Percutaneous Approach (ICD-10-PCS; principal; 2023-01-06)
DX: K70.31 Alcoholic cirrhosis of liver with ascites (principal)
CPT/HCPCS: 49083

== ENCOUNTER 2023-01-12 17:00 | Inpatient (IN) | payer BC ==
[2023-01-12 17:59] LABS: #Monocytes 0.9 thou/uL (0.11-0.59); #Neutrophils 6.8 thou/uL (1.40-6.50); %Basophils 0.1 % (0.0-1.0); %Lymphocytes 3.8 % (21.0-51.0); %Monocytes 10.7 % (0.0-10.0); %Neutrophils 84.5 % (42.0-75.0); Hemoglobin 9.5 g/dL (12.0-16.0); Mean Corpuscular HGB CONC 32.1 g/dL (32.0-36.0); Mean Corpuscular Hemoglobin 30.2 pg (27.0-31.0); Mean Platelet Volume 11.9 fL (7.4-10.4); RBC Distribution Width 15.9 % (11.5-14.5); Red Blood Cell (RBC) Count 3.15 mill/uL (4.20-5.40); White Blood Cell (WBC) Count 8.1 10x3/uL (4.8-10.8)
[2023-01-12 18:05] LABS: Platelet Count 82 10x3/uL (130-400)
[2023-01-12 18:17] LABS: ALT (SGPT) 34 U/L (8-55); AST (SGOT) 55 U/L (5-34); Albumin 3.5 g/dL (3.5-5.0); Alkaline Phosphatase 208 U/L (40-110); Anion Gap 15 mmol/L (10-20); BUN (Urea Nitrogen) 30 mg/dL (9.8-20.1); Bilirubin, Total 1.8 mg/dL (0.2-1.2); Calc. Creatinine Clearance 0 mL/min (70-130); Calcium 8.8 mg/dL (7.8-10.44); Carbon Dioxide 23 mmol/L (22-29); Chloride 103 mmol/L (98-107); Estimated GFR 86; Globulin 2.8 g/dL (2.4-3.5); Glucose 114 mg/dL (70-105); Magnesium 2.5 mg/dL (1.6-2.6); Protein, Total 6.3 g/dL (6.0-8.3); Sodium 137 mmol/L (136-145)
[2023-01-12 18:23] LABS: Bilirubin Negative (Negative); Blood, Urine Negative (Negative); Clarity Clear (Clear); Glucose, Urine (Dipstick) Normal (Negative); Ketone, Urine Trace mg/dL (Negative); Leukocyte Negative Leu/uL (Negative); Nitrite Negative (Negative); Protein, Urine (Dipstick) 10 mg/dL (Neg-Trace); Specific Gravity, Urine 1.021 (1.002-1.036); Urobilinogen Normal mg/dL (Less than 2)
[2023-01-12] MEDS ORDERED: Pantoprazole 40 MG VIAL ONE (19:33)
[2023-01-12 21:43] VITALS: BMI 26.1
[2023-01-12] MEDS ORDERED: Ondansetron PF 4 MG/2 ML Vial IVP PRN (21:54)
[2023-01-12] MEDS ORDERED: Ondansetron ODT 4 MG TAB PO PRN (21:54)
[2023-01-12] MEDS ORDERED: Senokot S 8.6-50 MG TAB PO PRN (21:54)
[2023-01-12] MEDS ORDERED: Calcium Carbonate 500 MG ChewTAB PO PRN (21:54)
[2023-01-12] MEDS ORDERED: Acetaminophen 325 MG TAB PO PRN (21:54)
[2023-01-13 06:28] LABS: #Eosinphils 0.1 thou/uL (0.0-0.7); #Monocytes 0.9 thou/uL (0.11-0.59); #Neutrophils 5.3 thou/uL (1.40-6.50); %Basophils 0.3 % (0.0-1.0); %Eosinophils 1.3 % (0.0-10.0); %Lymphocytes 6.8 % (21.0-51.0); %Monocytes 12.9 % (0.0-10.0); %Neutrophils 78.3 % (42.0-75.0); Hemoglobin 8.1 g/dL (12.0-16.0); Mean Corpuscular HGB CONC 30.7 g/dL (32.0-36.0); Mean Corpuscular Hemoglobin 29.6 pg (27.0-31.0); Mean Corpuscular Volume 96.4 fl (78.0-98.0); Mean Platelet Volume 11.9 fL (7.4-10.4); RBC Distribution Width 16.5 % (11.5-14.5); Red Blood Cell (RBC) Count 2.74 mill/uL (4.20-5.40); White Blood Cell (WBC) Count 6.8 10x3/uL (4.8-10.8)
[2023-01-13 06:46] LABS: ALT (SGPT) 37 U/L (8-55); AST (SGOT) 72 U/L (5-34); Albumin 3.1 g/dL (3.5-5.0); Alkaline Phosphatase 174 U/L (40-110); Anion Gap 13 mmol/L (10-20); BUN (Urea Nitrogen) 25 mg/dL (9.8-20.1); Bilirubin, Total 1.7 mg/dL (0.2-1.2); Calc. Creatinine Clearance 94 mL/min (70-130); Calcium 8.5 mg/dL (7.8-10.44); Carbon Dioxide 23 mmol/L (22-29); Chloride 105 mmol/L (98-107); Estimated GFR 85; Globulin 2.6 g/dL (2.4-3.5); Glucose 100 mg/dL (70-105); Potassium 3.1 mmol/L (3.5-5.1); Protein, Total 5.7 g/dL (6.0-8.3); Sodium 138 mmol/L (136-145)
[2023-01-13 07:02] LABS: Platelet Count 72 10x3/uL (130-400)
[2023-01-13] MEDS: Levothyroxine 150 MCG TAB PO SCH (08:21)
[2023-01-13] MEDS: Folic Acid 1 MG TAB PO SCH (08:21)
[2023-01-13] MEDS: Pregabalin 50 MG CAP PO SCH ×3 (08:22→20:07)
[2023-01-13] MEDS: Metoprolol Tartrate 25 MG TAB PO SCH (08:22)
[2023-01-13] MEDS: Sertraline 25 MG TAB PO SCH (08:22)
[2023-01-13] MEDS: Multivitamin W/ Minerals 1 TAB PO SCH ×2 (08:22→20:07)
[2023-01-13] MEDS: Ferrous Sulfate 325 MG TAB PO SCH ×2 (08:22→17:08)
[2023-01-13] MEDS: Thiamine 100 MG TAB PO SCH (08:22)
[2023-01-13] MEDS: Flecainide 50 MG TAB PO SCH ×2 (08:22→20:07)
[2023-01-13] MEDS: Furosemide 40 MG TAB PO SCH ×2 (08:22→14:41)
[2023-01-13] MEDS: Spironolactone 100 MG TAB PO SCH ×2 (08:22→20:07)
[2023-01-13] MEDS ORDERED: Lidocaine 1% PF 5 ML VIAL ONE (09:48)
[2023-01-13] MEDS ORDERED: Sodium Bicarbonate 2.5 MEQ/5 ML VIAL ONE (09:48)
[2023-01-13 10:05] LABS: INR-International Normal Ratio 1.4; Prothrombin Time 18.2 sec (12.0-14.7)
[2023-01-13] MEDS ORDERED: Potassium Chloride 20 MEQ TAB PO SCH (13:30)
[2023-01-13] MEDS ORDERED: Rifaximin 550 MG TAB PO SCH (21:00)
[2023-01-14] MEDS: Ferrous Sulfate 325 MG TAB PO SCH ×2 (08:16→16:35)
[2023-01-14] MEDS: Sertraline 25 MG TAB PO SCH (08:17)
[2023-01-14] MEDS: Spironolactone 100 MG TAB PO SCH ×2 (08:17→20:49)
[2023-01-14] MEDS: Multivitamin W/ Minerals 1 TAB PO SCH ×2 (08:17→20:49)
[2023-01-14] MEDS: Metoprolol Tartrate 25 MG TAB PO SCH (08:17)
[2023-01-14] MEDS: Flecainide 50 MG TAB PO SCH ×2 (08:18→20:49)
[2023-01-14] MEDS: Rifaximin 550 MG TAB PO SCH ×2 (08:18→20:49)
[2023-01-14] MEDS: Thiamine 100 MG TAB PO SCH (08:18)
[2023-01-14] MEDS: Furosemide 40 MG TAB PO SCH ×2 (08:18→14:25)
[2023-01-14] MEDS: Pregabalin 50 MG CAP PO SCH ×3 (08:18→20:50)
[2023-01-14] MEDS: Levothyroxine 150 MCG TAB PO SCH (08:18)
[2023-01-14] MEDS: Folic Acid 1 MG TAB PO SCH (08:18)
[2023-01-14 09:37] LABS: Anion Gap 13 mmol/L (10-20); BUN (Urea Nitrogen) 19 mg/dL (9.8-20.1); Calc. Creatinine Clearance 98 mL/min (70-130); Calcium 8.7 mg/dL (7.8-10.44); Carbon Dioxide 23 mmol/L (22-29); Chloride 102 mmol/L (98-107); Estimated GFR 89; Glucose 120 mg/dL (70-105); Sodium 134 mmol/L (136-145)
[2023-01-15 05:19] LABS: Anion Gap 11 mmol/L (10-20); BUN (Urea Nitrogen) 18 mg/dL (9.8-20.1); Calc. Creatinine Clearance 102 mL/min (70-130); Calcium 8.5 mg/dL (7.8-10.44); Carbon Dioxide 25 mmol/L (22-29); Chloride 99 mmol/L (98-107); Estimated GFR 93; Glucose 81 mg/dL (70-105); Potassium 4.2 mmol/L (3.5-5.1); Sodium 131 mmol/L (136-145)
[2023-01-15 08:00] VITALS: BP 115/63; TEMP 98.2
[2023-01-15] MEDS: Multivitamin W/ Minerals 1 TAB PO SCH (08:09)
[2023-01-15] MEDS: Rifaximin 550 MG TAB PO SCH (08:09)
[2023-01-15] MEDS: Pregabalin 50 MG CAP PO SCH ×2 (08:09→14:23)
[2023-01-15] MEDS: Thiamine 100 MG TAB PO SCH (08:10)
[2023-01-15] MEDS: Metoprolol Tartrate 25 MG TAB PO SCH (08:10)
[2023-01-15] MEDS: Folic Acid 1 MG TAB PO SCH (08:10)
[2023-01-15] MEDS: Furosemide 40 MG TAB PO SCH ×2 (08:10→14:23)
[2023-01-15] MEDS: Ferrous Sulfate 325 MG TAB PO SCH (08:10)
[2023-01-15] MEDS: Sertraline 25 MG TAB PO SCH (08:10)
[2023-01-15] MEDS: Flecainide 50 MG TAB PO SCH (08:10)
[2023-01-15] MEDS: Levothyroxine 150 MCG TAB PO SCH (08:10)
[2023-01-15] MEDS: Spironolactone 100 MG TAB PO SCH (08:11)
== END 2023-01-15 14:53 | disposition home or self-care (01) | DRG 442 ==
LOC: ERS 17:00 → T4-B 19:35 → OBSVTOIN 01-14 13:17
PROVIDERS: ADMIT Student in an Organized Health Care Education/Training Program; ATTEND Internal Medicine
PROC: 0W9G3ZZ Drainage of Peritoneal Cavity, Percutaneous Approach (ICD-10-PCS; principal; 2023-01-13)
DX: K76.82 Hepatic encephalopathy (principal); E72.4 Disorders of ornithine metabolism; E03.9 Hypothyroidism, unspecified; D64.9 Anemia, unspecified; D69.6 Thrombocytopenia, unspecified; F32.A Depression, unspecified; K70.31 Alcoholic cirrhosis of liver with ascites; E86.0 Dehydration; E87.6 Hypokalemia; G62.9 Polyneuropathy, unspecified; I48.0 Paroxysmal atrial fibrillation; Z79.899 Other long term (current) drug therapy; Z87.891 Personal history of nicotine dependence
CPT/HCPCS: 36415; 49083; 51701; 71045; 80048; 80053; 81003; 82140; 83735; 85025; 85610; 94640; 96374; C9113; J7611

== ENCOUNTER 2023-01-20 07:36 | Day surgery (SDC) | payer BC ==
[2023-01-20] MEDS ORDERED: Sodium Bicarbonate 2.5 MEQ/5 ML VIAL ONE (08:03)
[2023-01-20] MEDS ORDERED: Lidocaine 1% PF 5 ML VIAL ONE (08:03)
[2023-01-20 10:28] VITALS: BP 98/49
== END 2023-01-20 10:00 | disposition home or self-care (01) ==
LOC: ULT 07:36
PROVIDERS: ATTEND Physician Assistant Medical
PROC: 0W9G3ZZ Drainage of Peritoneal Cavity, Percutaneous Approach (ICD-10-PCS; principal; 2023-01-20)
DX: K70.31 Alcoholic cirrhosis of liver with ascites (principal)
CPT/HCPCS: 36415; 49083; 80053; 85025; 85610

== ENCOUNTER 2023-02-17 07:19 | Day surgery (SDC) | payer BC ==
[2023-02-17] MEDS ORDERED: Sodium Bicarbonate 2.5 MEQ/5 ML VIAL ONE (08:14)
[2023-02-17] MEDS ORDERED: Lidocaine 1% PF 5 ML VIAL ONE (08:14)
[2023-02-17] MEDS ORDERED: Albumin 25% 200 ML ONE (08:22)
[2023-02-17] MEDS ORDERED: Albumin 25% 25 GM/100 ML BOT IVPB SCH (09:00)
[2023-02-17 13:09] VITALS: BP 114/62
== END 2023-02-17 10:15 | disposition home or self-care (01) ==
LOC: ULT 07:19
PROVIDERS: ATTEND Physician Assistant Medical
PROC: 0W9G30Z Drainage of Peritoneal Cavity with Drainage Device, Percutaneous Approach (ICD-10-PCS; principal; 2023-02-17)
DX: K70.31 Alcoholic cirrhosis of liver with ascites (principal); I85.00 Esophageal varices without bleeding
CPT/HCPCS: 49083; P9047

== ENCOUNTER → 2023-02-24 | Day surgery (SDC) | payer BC ==
[~2023-02-24] MED LIST changes: -FLU VACC QS2022-23(6MOS UP)/PF 60 MCG/0.5 ML SYRINGE IM ONE
[2023-02-24 08:37] LABS: #Eosinphils 0.1 thou/uL (0.0-0.7); #Monocytes 0.6 thou/uL (0.11-0.59); #Neutrophils 4.7 thou/uL (1.40-6.50); %Basophils 0.4 % (0.0-1.0); %Eosinophils 1.6 % (0.0-10.0); %Lymphocytes 5.6 % (21.0-51.0); %Monocytes 10.2 % (0.0-10.0); %Neutrophils 81.8 % (42.0-75.0); Hemoglobin 10.1 g/dL (12.0-16.0); Mean Corpuscular HGB CONC 31.3 g/dL (32.0-36.0); Mean Corpuscular Hemoglobin 29.1 pg (27.0-31.0); Mean Corpuscular Volume 93.1 fl (78.0-98.0); Mean Platelet Volume 11.2 fL (7.4-10.4); RBC Distribution Width 15.5 % (11.5-14.5); Red Blood Cell (RBC) Count 3.47 mill/uL (4.20-5.40); White Blood Cell (WBC) Count 5.7 10x3/uL (4.8-10.8)
[2023-02-24 08:38] LABS: Platelet Count 72 10x3/uL (130-400)
[2023-02-24 08:43] LABS: INR-International Normal Ratio 1.4; Prothrombin Time 17.4 sec (12.0-14.7)
[2023-02-24 08:44] LABS: PTT 40.4 sec (22.9-36.1)
== END ==
LOC: ULT 07:41
PROVIDERS: ATTEND Physician Assistant Medical
DX: K70.31 Alcoholic cirrhosis of liver with ascites (principal); I85.00 Esophageal varices without bleeding
CPT/HCPCS: 49083; 85025; 85610; 85730; P9047

== ENCOUNTER 2023-02-25 08:01 | Outpatient (CLI) | payer BC | END 2023-02-25 08:02 | disposition home or self-care (01) | LOC: BICMAMMO 08:01 | PROVIDERS: ATTEND Obstetrics & Gynecology | DX: Z12.31 Encounter for screening mammogram for malignant neoplasm of breast (principal); R92.8 Other abnormal and inconclusive findings on diagnostic imaging of breast; R92.1 Mammographic calcification found on diagnostic imaging of breast | CPT/HCPCS: 77063; 77067 ==

== ENCOUNTER 2023-03-10 07:31 | Day surgery (SDC) | payer BC ==
[2023-03-10] MEDS ORDERED: Sodium Bicarbonate 2.5 MEQ/5 ML VIAL ONE (07:54)
[2023-03-10] MEDS ORDERED: Lidocaine 1% PF 5 ML VIAL ONE (07:54)
[2023-03-10] MEDS ORDERED: Albumin 25% 200 ML ONE (08:40)
[2023-03-10 10:16] VITALS: TEMP 98.1
[2023-03-10] MEDS ORDERED: Albumin 25% 25 GM/100 ML BOT IVPB SCH (10:30)
[2023-03-10 12:33] VITALS: BP 92/59
== END 2023-03-10 10:15 | disposition home or self-care (01) ==
LOC: ULT 07:31
PROVIDERS: ATTEND Physician Assistant Medical
DX: K70.31 Alcoholic cirrhosis of liver with ascites (principal); I85.00 Esophageal varices without bleeding
CPT/HCPCS: 49083; 71046; P9047

== ENCOUNTER → 2023-03-17 | Day surgery (SDC) | payer BC ==
[~2023-03-17] MED LIST changes: -Lidocaine 1% PF 5 ML VIAL ONE; -Sodium Bicarbonate 2.5 MEQ/5 ML VIAL ONE
== END ==
LOC: ULT 07:24
PROVIDERS: ATTEND Physician Assistant Medical
PROC: 0W9G30Z Drainage of Peritoneal Cavity with Drainage Device, Percutaneous Approach (ICD-10-PCS; principal; 2023-03-17)
DX: K70.31 Alcoholic cirrhosis of liver with ascites (principal); I85.00 Esophageal varices without bleeding
CPT/HCPCS: 49083; P9047

== ENCOUNTER → 2023-03-31 | Day surgery (SDC) | payer BC ==
[~2023-03-31] MED LIST changes: +Lidocaine 1% PF 5 ML VIAL ONE; +Sodium Bicarbonate 2.5 MEQ/5 ML VIAL ONE
[2023-03-31 07:36] LABS: #Eosinphils 0.1 thou/uL (0.0-0.7); #Monocytes 0.8 thou/uL (0.11-0.59); #Neutrophils 4.6 thou/uL (1.40-6.50); %Basophils 0.7 % (0.0-1.0); %Lymphocytes 6.4 % (21.0-51.0); %Monocytes 13.1 % (0.0-10.0); %Neutrophils 77.5 % (42.0-75.0); Hemoglobin 10.5 g/dL (12.0-16.0); Mean Corpuscular Hemoglobin 28.5 pg (27.0-31.0); Mean Corpuscular Volume 88.9 fl (78.0-98.0); Mean Platelet Volume 11.6 fL (7.4-10.4); RBC Distribution Width 17.7 % (11.5-14.5); Red Blood Cell (RBC) Count 3.69 mill/uL (4.20-5.40)
[2023-03-31 07:57] LABS: INR-International Normal Ratio 1.4; PTT 41.7 sec (22.9-36.1); Prothrombin Time 17.7 sec (12.0-14.7)
[2023-03-31 08:00] LABS: Platelet Count 70 10x3/uL (130-400)
[2023-03-31 12:33] LABS: RBC Count-Automated (BF) 166 /cu.mm; WBC/Nucleated-Auto (BF) 89 /cu.mm
[2023-03-31 12:39] LABS: BF Color White; Body Fluid Source Ascites Body Fluid; Clarity Hazy (Clear); Tube # EDTA
[2023-03-31 13:24] LABS: BF Segmented Neutrophils 9 %; Cell Count Non Hematic 68 %; Eosinophils 4 %; Lymphocytes 19 %
== END ==
LOC: ULT 07:23
PROVIDERS: ATTEND Physician Assistant Medical
DX: K70.31 Alcoholic cirrhosis of liver with ascites (principal); I85.00 Esophageal varices without bleeding
CPT/HCPCS: 49083; 82042; 84157; 85025; 85060; 85610; 85730; 88112; 88305; 89051; P9047

== ENCOUNTER → 2023-04-05 | Day surgery (SDC) | payer BC ==
[~2023-04-05] MED LIST changes: -Albumin 25% 200 ML ONE
[2023-04-05 11:32] VITALS: BP 103/60
[2023-04-06 07:57] LABS: RBC Count-Automated (BF) 277 /cu.mm; WBC/Nucleated-Auto (BF) 78 /cu.mm
[2023-04-06 09:32] LABS: BF Color Yellow; Body Fluid Source Ascites Body Fluid; Clarity Hazy (Clear); Tube # 1
[2023-04-06 10:43] LABS: Cell Count Non Hematic 82 %; Lymphocytes 18 %
== END ==
LOC: ULT 09:20
PROVIDERS: ATTEND Internal Medicine Gastroenterology
DX: J90 Pleural effusion, not elsewhere classified (principal); J94.8 Other specified pleural conditions; K70.30 Alcoholic cirrhosis of liver without ascites; R18.8 Other ascites
CPT/HCPCS: 32555; 71045; 82042; 84155; 85060; 87070; 87205; 88112; 89051

== ENCOUNTER → 2023-04-07 | Day surgery (SDC) | payer BC ==
[~2023-04-07] MED LIST changes: +Albumin 25% 0 ML ONE
[2023-04-07 12:20] VITALS: BP 101/33
== END ==
LOC: ULT 07:22
PROVIDERS: ATTEND Physician Assistant Medical
DX: K70.31 Alcoholic cirrhosis of liver with ascites (principal); I85.00 Esophageal varices without bleeding
CPT/HCPCS: 49083; 87070; 87205; P9047

== ENCOUNTER 2023-04-14 07:35 | Day surgery (SDC) | payer BC ==
[2023-04-14] MEDS ORDERED: Lidocaine 1% PF 5 ML VIAL ONE (07:41)
[2023-04-14] MEDS ORDERED: Sodium Bicarbonate 2.5 MEQ/5 ML VIAL ONE (07:41)
[2023-04-14] MEDS ORDERED: Albumin 25% 200 ML ONE (09:01)
[2023-04-14 10:33] VITALS: BP 102/43; TEMP 99
== END 2023-04-14 11:03 | disposition home or self-care (01) ==
LOC: ULT 07:35
PROVIDERS: ATTEND Physician Assistant Medical
PROC: 0W9G30Z Drainage of Peritoneal Cavity with Drainage Device, Percutaneous Approach (ICD-10-PCS; principal; 2023-04-14)
DX: K70.31 Alcoholic cirrhosis of liver with ascites (principal); I85.00 Esophageal varices without bleeding
CPT/HCPCS: 49083; 71045; P9047

== ENCOUNTER → 2023-04-21 | Day surgery (SDC) | payer BC ==
[~2023-04-21] MED LIST changes: -Albumin 25% 0 ML ONE; +Albumin 25% 200 ML ONE; +Albumin 25% 25 GM/100 ML BOT IVPB SCH
[2023-04-21 10:33] VITALS: BP 91/51
== END ==
LOC: ULT 07:22
PROVIDERS: ATTEND Physician Assistant Medical
PROC: 0W9G3ZZ Drainage of Peritoneal Cavity, Percutaneous Approach (ICD-10-PCS; principal; 2023-04-21)
DX: K70.31 Alcoholic cirrhosis of liver with ascites (principal); I85.00 Esophageal varices without bleeding
CPT/HCPCS: 49083; P9047

== ENCOUNTER 2023-04-28 07:23 | Day surgery (SDC) | payer BC ==
[2023-04-28] MEDS ORDERED: Albumin 25% 200 ML ONE (07:55)
[2023-04-28] MEDS ORDERED: Lidocaine 1% PF 5 ML VIAL ONE (07:55)
[2023-04-28] MEDS ORDERED: Sodium Bicarbonate 2.5 MEQ/5 ML VIAL ONE (07:55)
[2023-04-28] MEDS ORDERED: Albumin 25% 25 GM/100 ML BOT IVPB SCH (08:45)
[2023-04-28 12:03] VITALS: BP 91/48
== END 2023-04-28 09:45 | disposition home or self-care (01) ==
LOC: ULT 07:23
PROVIDERS: ATTEND Physician Assistant Medical
PROC: 0W9G3ZZ Drainage of Peritoneal Cavity, Percutaneous Approach (ICD-10-PCS; principal; 2023-04-28)
DX: K70.31 Alcoholic cirrhosis of liver with ascites (principal); I85.00 Esophageal varices without bleeding
CPT/HCPCS: 49083; P9047

== ENCOUNTER 2023-05-05 07:30 | Day surgery (SDC) | payer BC ==
[2023-05-05 08:19] LABS: #Eosinphils 0.1 thou/uL (0.0-0.7); #Monocytes 0.4 thou/uL (0.11-0.59); #Neutrophils 3.5 thou/uL (1.40-6.50); %Basophils 0.5 % (0.0-1.0); %Eosinophils 1.4 % (0.0-10.0); %Lymphocytes 6.3 % (21.0-51.0); %Monocytes 9.8 % (0.0-10.0); %Neutrophils 81.8 % (42.0-75.0); Hematocrit 32.7 % (36.0-47.0); Hemoglobin 10.5 g/dL (12.0-16.0); Mean Corpuscular HGB CONC 32.1 g/dL (32.0-36.0); Mean Corpuscular Hemoglobin 29.8 pg (27.0-31.0); Mean Corpuscular Volume 92.9 fl (78.0-98.0); Mean Platelet Volume 10.8 fL (7.4-10.4); RBC Distribution Width 17.7 % (11.5-14.5); Red Blood Cell (RBC) Count 3.52 mill/uL (4.20-5.40); White Blood Cell (WBC) Count 4.3 10x3/uL (4.8-10.8)
[2023-05-05 08:29] LABS: Platelet Count 55 10x3/uL (130-400)
[2023-05-05] MEDS ORDERED: Sodium Bicarbonate 2.5 MEQ/5 ML VIAL ONE (08:30)
[2023-05-05] MEDS ORDERED: Lidocaine 1% PF 5 ML VIAL ONE (08:30)
[2023-05-05] MEDS ORDERED: Albumin 25% 200 ML ONE (08:30)
[2023-05-05 08:33] LABS: INR-International Normal Ratio 1.4; Prothrombin Time 17.9 sec (12.0-14.7)
[2023-05-05 08:34] LABS: PTT 43.4 sec (22.9-36.1)
[2023-05-05] MEDS ORDERED: Albumin 25% 25 GM/100 ML BOT IVPB SCH (09:15)
[2023-05-05 11:53] VITALS: BP 105/65
== END 2023-05-05 10:25 | disposition home or self-care (01) ==
LOC: ULT 07:30
PROVIDERS: ATTEND Physician Assistant Medical
PROC: 0W9G30Z Drainage of Peritoneal Cavity with Drainage Device, Percutaneous Approach (ICD-10-PCS; principal; 2023-05-05)
DX: K70.31 Alcoholic cirrhosis of liver with ascites (principal); I85.00 Esophageal varices without bleeding
CPT/HCPCS: 49083; 85025; 85610; 85730; P9047

== ENCOUNTER 2023-05-10 09:25 | Emergency (ER) | payer BC ==
[2023-05-10 10:42] LABS: #Eosinphils 0.1 thou/uL (0.0-0.7); #Monocytes 0.6 thou/uL (0.11-0.59); #Neutrophils 3.9 thou/uL (1.40-6.50); %Basophils 0.4 % (0.0-1.0); %Eosinophils 1.2 % (0.0-10.0); %Lymphocytes 4.9 % (21.0-51.0); %Neutrophils 81.1 % (42.0-75.0); Hematocrit 32.7 % (36.0-47.0); Hemoglobin 10.8 g/dL (12.0-16.0); Mean Corpuscular Volume 90.8 fl (78.0-98.0); Mean Platelet Volume 12.1 fL (7.4-10.4); RBC Distribution Width 16.4 % (11.5-14.5); White Blood Cell (WBC) Count 4.9 10x3/uL (4.8-10.8)
[2023-05-10 10:50] LABS: Platelet Count 60 10x3/uL (130-400)
[2023-05-10 10:54] LABS: INR-International Normal Ratio 1.4; PTT 42.6 sec (22.9-36.1); Prothrombin Time 17.5 sec (12.0-14.7)
[2023-05-10] MEDS ORDERED: cefTRIAXone (ROCEPHIN) 2 GM VIAL ONE (11:00)
[2023-05-10 11:15] LABS: ALT (SGPT) 28 U/L (8-55); AST (SGOT) 50 U/L (5-34); Albumin 3.7 g/dL (3.5-5.0); Alkaline Phosphatase 242 U/L (40-110); Anion Gap 12 mmol/L (10-20); BUN (Urea Nitrogen) 14 mg/dL (9.8-20.1); Bilirubin, Total 2.5 mg/dL (0.2-1.2); Calc. Creatinine Clearance 0 mL/min (70-130); Calcium 8.5 mg/dL (7.8-10.44); Carbon Dioxide 22 mmol/L (22-29); Chloride 103 mmol/L (98-107); Estimated GFR 103; Globulin 2.9 g/dL (2.4-3.5); Glucose 105 mg/dL (70-105); Potassium 3.4 mmol/L (3.5-5.1); Protein, Total 6.6 g/dL (6.0-8.3); Sodium 134 mmol/L (136-145)
[2023-05-10 11:28] LABS: Bacteria/HPF None Seen HPF (None Seen); Bilirubin Negative (Negative); Blood, Urine Negative (Negative); CAUTI Indications for Culture Dysuria,urgency,freq; Clarity Clear (Clear); Glucose, Urine (Dipstick) Normal (Negative); Ketone, Urine Negative (Negative); Leukocyte Negative Leu/uL (Negative); Nitrite Negative (Negative); Protein, Urine (Dipstick) Negative (Neg-Trace); RBC/HPF 0-3 HPF (0-3); Specific Gravity, Urine 1.009 (1.002-1.036); Squamous Epithelial 0-3 HPF (0-3); Urobilinogen Normal mg/dL (Less than 2); WBC/HPF 0-3 HPF (0-3); pH, Urine 6.5 (5.0-9.0)
[2023-05-10 11:34] LABS: Urine Culture Reflex No No
[2023-05-10 12:22] LABS: RBC Count-Automated (BF) 409 /cu.mm; WBC/Nucleated-Auto (BF) 102 /cu.mm
[2023-05-10 12:34] LABS: Body Fluid Source Ascites Body Fluid; Clarity Hazy (Clear); Tube # EDTA
[2023-05-10 12:35] LABS: BF Color White
[2023-05-10 12:58] LABS: BF Segmented Neutrophils 47 %; Cell Count Non Hematic 41 %; Lymphocytes 12 %
== END 2023-05-10 15:50 | disposition short-term general hospital (02) ==
LOC: ERS 09:25
DX: K42.9 Umbilical hernia without obstruction or gangrene (principal); K70.31 Alcoholic cirrhosis of liver with ascites; E03.9 Hypothyroidism, unspecified; Z87.891 Personal history of nicotine dependence
CPT/HCPCS: 36415; 49083; 80053; 81001; 83605; 85025; 85060; 85610; 85730; 87040; 87070; 87205; 89051; 96365; J0696

== ENCOUNTER 2023-05-19 07:34 | Day surgery (SDC) | payer BC ==
[2023-05-19] MEDS ORDERED: Lidocaine 1% PF 5 ML VIAL ONE (08:02)
[2023-05-19] MEDS ORDERED: Sodium Bicarbonate 2.5 MEQ/5 ML VIAL ONE (08:02)
[2023-05-19] MEDS ORDERED: Albumin 25% 100 ML ONE (08:02)
[2023-05-19] MEDS ORDERED: Albumin 25% 25 GM/100 ML BOT IVPB SCH (08:30)
[2023-05-19 15:16] VITALS: BP 100/54
== END 2023-05-19 10:15 | disposition home or self-care (01) ==
LOC: ULT 07:34
PROVIDERS: ATTEND Physician Assistant Medical
PROC: 0W9G30Z Drainage of Peritoneal Cavity with Drainage Device, Percutaneous Approach (ICD-10-PCS; principal; 2023-05-19)
DX: K70.31 Alcoholic cirrhosis of liver with ascites (principal); I85.00 Esophageal varices without bleeding
CPT/HCPCS: 49083; P9047

== ENCOUNTER 2023-05-24 07:25 | Day surgery (SDC) | payer BC ==
[2023-05-24] MEDS ORDERED: Sodium Bicarbonate 2.5 MEQ/5 ML VIAL ONE (07:29)
[2023-05-24] MEDS ORDERED: Lidocaine 1% PF 5 ML VIAL ONE (07:29)
[2023-05-24 08:06] VITALS: BP 112/42; TEMP 97.6
== END 2023-05-24 09:00 | disposition home or self-care (01) ==
LOC: ULT 07:25
PROVIDERS: ATTEND Physician Assistant Medical
DX: K70.31 Alcoholic cirrhosis of liver with ascites (principal); I85.00 Esophageal varices without bleeding
CPT/HCPCS: 49083

== ENCOUNTER 2023-05-26 08:37 | Day surgery (SDC) | payer BC ==
[~2023-05-26 08:37] MED LIST changes: -Albumin 25% 200 ML ONE; -Albumin 25% 25 GM/100 ML BOT IVPB SCH
[2023-05-26 09:58] VITALS: BP 101/47
== END 2023-05-26 09:35 | disposition home or self-care (01) ==
LOC: ULT 08:37
PROVIDERS: ATTEND Physician Assistant Medical
PROC: 0W9G3ZZ Drainage of Peritoneal Cavity, Percutaneous Approach (ICD-10-PCS; principal; 2023-05-26)
DX: K70.31 Alcoholic cirrhosis of liver with ascites (principal); I85.00 Esophageal varices without bleeding
CPT/HCPCS: 49083

== ENCOUNTER 2023-06-09 07:20 | Day surgery (SDC) | payer BC ==
[2023-06-09] MEDS ORDERED: Sodium Bicarbonate 2.5 MEQ/5 ML VIAL ONE (07:31)
[2023-06-09] MEDS ORDERED: Albumin 25% 200 ML ONE (07:31)
[2023-06-09] MEDS ORDERED: Lidocaine 1% PF 5 ML VIAL ONE (07:31)
[2023-06-09] MEDS ORDERED: Albumin 25% 25 GM/100 ML BOT IVPB SCH (09:15)
[2023-06-09 09:53] VITALS: BP 104/50
== END 2023-06-09 09:30 | disposition home or self-care (01) ==
LOC: ULT 07:20
PROVIDERS: ATTEND Physician Assistant Medical
PROC: 0W9G3ZZ Drainage of Peritoneal Cavity, Percutaneous Approach (ICD-10-PCS; principal; 2023-06-09)
DX: K70.31 Alcoholic cirrhosis of liver with ascites (principal); I85.00 Esophageal varices without bleeding
CPT/HCPCS: 49083; P9047

== ENCOUNTER 2023-06-11 11:54 | Day surgery (SDC) | payer BC ==
[2023-06-11 12:06] LABS: #Eosinphils 0.1 thou/uL (0.0-0.7); #Monocytes 0.8 thou/uL (0.11-0.59); #Neutrophils 4.8 thou/uL (1.40-6.50); %Basophils 0.3 % (0.0-1.0); %Eosinophils 1.2 % (0.0-10.0); %Monocytes 14.1 % (0.0-10.0); %Neutrophils 79.9 % (42.0-75.0); Hematocrit 30.1 % (36.0-47.0); Mean Corpuscular HGB CONC 33.2 g/dL (32.0-36.0); Mean Corpuscular Hemoglobin 29.9 pg (27.0-31.0); Mean Corpuscular Volume 89.9 fl (78.0-98.0); Mean Platelet Volume 11.1 fL (7.4-10.4); RBC Distribution Width 14.6 % (11.5-14.5); Red Blood Cell (RBC) Count 3.35 mill/uL (4.20-5.40)
[2023-06-11 12:09] LABS: Platelet Count 60 10x3/uL (130-400)
[2023-06-11 12:18] LABS: INR-International Normal Ratio 1.4; PTT 44.6 sec (22.9-36.1); Prothrombin Time 17.3 sec (12.0-14.7)
[2023-06-11] MEDS ORDERED: Sodium Bicarbonate 2.5 MEQ/5 ML VIAL ONE (12:20)
[2023-06-11] MEDS ORDERED: Lidocaine 1% PF 5 ML VIAL ONE (12:20)
[2023-06-11 14:07] VITALS: BP 101/63; TEMP 98.1
== END 2023-06-11 13:50 | disposition home or self-care (01) ==
LOC: ULT 11:54
PROVIDERS: ATTEND Physician Assistant Medical
PROC: 0W9G30Z Drainage of Peritoneal Cavity with Drainage Device, Percutaneous Approach (ICD-10-PCS; principal; 2023-06-11)
DX: R18.8 Other ascites (principal)
CPT/HCPCS: 49083; 85025; 85610; 85730

== ENCOUNTER 2023-06-16 07:30 | Day surgery (SDC) | payer BC ==
[2023-06-16] MEDS ORDERED: Lidocaine 1% PF 5 ML VIAL ONE (08:05)
[2023-06-16] MEDS ORDERED: Sodium Bicarbonate 2.5 MEQ/5 ML VIAL ONE (08:05)
[2023-06-16 14:35] VITALS: BP 116/74; TEMP 97.9
== END 2023-06-16 10:45 | disposition home or self-care (01) ==
LOC: ULT 07:30
PROVIDERS: ATTEND Physician Assistant Medical
PROC: 0W9G3ZZ Drainage of Peritoneal Cavity, Percutaneous Approach (ICD-10-PCS; principal; 2023-06-16)
DX: K70.31 Alcoholic cirrhosis of liver with ascites (principal); I85.00 Esophageal varices without bleeding
CPT/HCPCS: 49083

== ENCOUNTER 2023-06-23 07:19 | Day surgery (SDC) | payer BC ==
[2023-06-23] MEDS ORDERED: Sodium Bicarbonate 2.5 MEQ/5 ML VIAL ONE (07:50)
[2023-06-23] MEDS ORDERED: Albumin 25% 200 ML ONE (07:50)
[2023-06-23] MEDS ORDERED: Lidocaine 1% PF 5 ML VIAL ONE (07:50)
[2023-06-23] MEDS ORDERED: Albumin 25% 25 GM/100 ML BOT IVPB SCH (08:15)
[2023-06-23 13:30] VITALS: BP 93/40
== END 2023-06-23 10:00 | disposition home or self-care (01) ==
LOC: ULT 07:19
PROVIDERS: ATTEND Physician Assistant Medical
PROC: 0W9G3ZZ Drainage of Peritoneal Cavity, Percutaneous Approach (ICD-10-PCS; principal; 2023-06-23)
DX: K70.31 Alcoholic cirrhosis of liver with ascites (principal); I85.00 Esophageal varices without bleeding
CPT/HCPCS: 49083; P9047

== ENCOUNTER 2023-06-25 11:56 | Day surgery (SDC) | payer BC ==
[2023-06-25] MEDS ORDERED: Sodium Bicarbonate 2.5 MEQ/5 ML VIAL ONE (12:50)
[2023-06-25] MEDS ORDERED: Lidocaine 1% PF 5 ML VIAL ONE (12:50)
[2023-06-25] MEDS ORDERED: Albumin 25% 200 ML ONE (12:50)
== END 2023-06-25 14:59 | disposition home or self-care (01) ==
LOC: ULT 11:56
PROVIDERS: ATTEND Physician Assistant Medical
PROC: 0W9G30Z Drainage of Peritoneal Cavity with Drainage Device, Percutaneous Approach (ICD-10-PCS; principal; 2023-06-25)
DX: K70.31 Alcoholic cirrhosis of liver with ascites (principal)
CPT/HCPCS: 49083; P9047

== ENCOUNTER 2023-06-30 07:28 | Day surgery (SDC) | payer BC ==
[2023-06-30] MEDS ORDERED: Albumin 25% 200 ML ONE (08:05)
[2023-06-30] MEDS ORDERED: Lidocaine 1% PF 5 ML VIAL ONE (08:05)
[2023-06-30] MEDS ORDERED: Sodium Bicarbonate 2.5 MEQ/5 ML VIAL ONE (08:05)
[2023-06-30 09:22] LABS: ALT (SGPT) 38 U/L (8-55); AST (SGOT) 56 U/L (5-34); Alkaline Phosphatase 250 U/L (40-110); Anion Gap 14 mmol/L (10-20); BUN (Urea Nitrogen) 26 mg/dL (9.8-20.1); Bilirubin, Total 1.8 mg/dL (0.2-1.2); Calc. Creatinine Clearance 0 mL/min (70-130); Calcium 8.9 mg/dL (7.8-10.44); Carbon Dioxide 24 mmol/L (22-29); Chloride 94 mmol/L (98-107); Estimated GFR 87; Globulin 2.5 g/dL (2.4-3.5); Glucose 82 mg/dL (70-105); Potassium 3.5 mmol/L (3.5-5.1); Protein, Total 6.5 g/dL (6.0-8.3); Sodium 128 mmol/L (136-145)
[2023-06-30] MEDS ORDERED: Albumin 25% 25 GM/100 ML BOT IVPB SCH (09:30)
[2023-06-30 11:17] LABS: RBC Count-Automated (BF) 291 /cu.mm; WBC/Nucleated-Auto (BF) 93 /cu.mm
[2023-06-30 11:33] LABS: BF Color Yellow; Body Fluid Source Ascites Body Fluid; Clarity Cloudy/Turbid (Clear); Tube # EDTA
[2023-06-30 12:05] VITALS: TEMP 98
[2023-06-30 12:17] VITALS: BP 98/46
[2023-06-30 12:22] LABS: BF Segmented Neutrophils 12 %; Cell Count Non Hematic 67 %; Lymphocytes 21 %
== END 2023-06-30 10:15 | disposition home or self-care (01) ==
LOC: ULT 07:28
PROVIDERS: ATTEND Physician Assistant Medical
PROC: 0W9G30Z Drainage of Peritoneal Cavity with Drainage Device, Percutaneous Approach (ICD-10-PCS; principal; 2023-06-30)
DX: K70.31 Alcoholic cirrhosis of liver with ascites (principal); I85.00 Esophageal varices without bleeding
CPT/HCPCS: 49083; 80053; 82042; 84157; 85060; 87070; 87205; 88112; 88305; 89051; P9047

== ENCOUNTER 2023-07-02 12:01 | Day surgery (SDC) | payer BC ==
[2023-07-02] MEDS ORDERED: Lidocaine 1% PF 5 ML VIAL ONE (12:23)
[2023-07-02] MEDS ORDERED: Sodium Bicarbonate 2.5 MEQ/5 ML VIAL ONE (12:23)
[2023-07-02] MEDS ORDERED: Albumin 25% 100 ML ONE ×2 (12:23→12:24)
[2023-07-02 13:23] VITALS: BP 93/44; TEMP 99
[2023-07-02] MEDS ORDERED: FLU VACC QS2023-24(6MOS UP)/PF 60 MCG/0.5 ML SYRINGE IM ONE (18:00)
== END 2023-07-02 14:57 | disposition home or self-care (01) ==
LOC: ULT 12:01
PROVIDERS: ATTEND Physician Assistant Medical
PROC: 0W9G30Z Drainage of Peritoneal Cavity with Drainage Device, Percutaneous Approach (ICD-10-PCS; principal; 2023-07-02)
DX: K70.31 Alcoholic cirrhosis of liver with ascites (principal)
CPT/HCPCS: 49083; P9047

== ENCOUNTER 2023-07-07 07:35 | Day surgery (SDC) | payer BC ==
[2023-07-07] MEDS ORDERED: Albumin 25% 200 ML ONE (07:44)
[2023-07-07] MEDS ORDERED: Sodium Bicarbonate 2.5 MEQ/5 ML VIAL ONE (07:45)
[2023-07-07] MEDS ORDERED: Lidocaine 1% PF 5 ML VIAL ONE (07:45)
== END 2023-07-07 10:00 | disposition home or self-care (01) ==
LOC: ULT 07:35
PROVIDERS: ATTEND Physician Assistant Medical
PROC: 0W9G3ZZ Drainage of Peritoneal Cavity, Percutaneous Approach (ICD-10-PCS; principal; 2023-07-07)
DX: K70.31 Alcoholic cirrhosis of liver with ascites (principal); I85.00 Esophageal varices without bleeding
CPT/HCPCS: 49083; P9047

== ENCOUNTER 2023-07-09 11:59 | Day surgery (SDC) | payer BC ==
[2023-07-09 12:32] LABS: Hematocrit 29.5 % (36.0-47.0); Hemoglobin 9.8 g/dL (12.0-16.0); Mean Corpuscular HGB CONC 33.2 g/dL (32.0-36.0); Mean Corpuscular Hemoglobin 29.3 pg (27.0-31.0); Mean Corpuscular Volume 88.1 fl (78.0-98.0); Mean Platelet Volume 11.1 fL (7.4-10.4); RBC Distribution Width 15.4 % (11.5-14.5); Red Blood Cell (RBC) Count 3.35 mill/uL (4.20-5.40); White Blood Cell (WBC) Count 7.2 10x3/uL (4.8-10.8)
[2023-07-09 12:33] LABS: #Eosinphils 0.1 thou/uL (0.0-0.7); #Monocytes 0.7 thou/uL (0.11-0.59); #Neutrophils 6.1 thou/uL (1.40-6.50); %Basophils 0.3 % (0.0-1.0); %Eosinophils 0.8 % (0.0-10.0); %Lymphocytes 3.6 % (21.0-51.0); %Monocytes 9.5 % (0.0-10.0); %Neutrophils 85.4 % (42.0-75.0)
[2023-07-09] MEDS ORDERED: Albumin 25% 100 ML ONE (12:34)
[2023-07-09] MEDS ORDERED: Lidocaine 1% PF 5 ML VIAL ONE (12:34)
[2023-07-09] MEDS ORDERED: Sodium Bicarbonate 2.5 MEQ/5 ML VIAL ONE (12:34)
[2023-07-09 12:35] LABS: Platelet Count 77 10x3/uL (130-400)
[2023-07-09 12:51] LABS: INR-International Normal Ratio 1.4; PTT 44.7 sec (22.9-36.1); Prothrombin Time 17.6 sec (12.0-14.7)
[2023-07-09 13:14] LABS: Anion Gap 17 mmol/L (10-20); Calcium 8.9 mg/dL (7.8-10.44); Carbon Dioxide 20 mmol/L (22-29); Chloride 98 mmol/L (98-107); Potassium 4.4 mmol/L (3.5-5.1); Sodium 131 mmol/L (136-145)
[2023-07-09 13:50] LABS: Glucose 115 mg/dL (70-105)
[2023-07-09 13:53] LABS: Calc. Creatinine Clearance 0 mL/min (70-130); Estimated GFR 91
[2023-07-09 13:54] LABS: BUN (Urea Nitrogen) 31 mg/dL (9.8-20.1)
== END 2023-07-09 14:50 | disposition home or self-care (01) ==
LOC: ULT 11:59
PROVIDERS: ATTEND Physician Assistant Medical
PROC: 0W9G30Z Drainage of Peritoneal Cavity with Drainage Device, Percutaneous Approach (ICD-10-PCS; principal; 2023-07-09)
DX: K70.31 Alcoholic cirrhosis of liver with ascites (principal)
CPT/HCPCS: 36415; 49083; 80048; 85025; 85610; 85730; P9047

== ENCOUNTER 2023-07-10 17:30 | Emergency (ER) | payer BC ==
[2023-07-10 17:55] LABS: #Eosinphils 0.1 thou/uL (0.0-0.7); #Monocytes 0.7 thou/uL (0.11-0.59); #Neutrophils 5.3 thou/uL (1.40-6.50); %Basophils 0.3 % (0.0-1.0); %Eosinophils 1.3 % (0.0-10.0); %Lymphocytes 3.6 % (21.0-51.0); %Monocytes 11.6 % (0.0-10.0); %Neutrophils 82.7 % (42.0-75.0); Hematocrit 31.3 % (36.0-47.0); Hemoglobin 10.5 g/dL (12.0-16.0); Mean Corpuscular HGB CONC 33.5 g/dL (32.0-36.0); Mean Corpuscular Hemoglobin 29.7 pg (27.0-31.0); Mean Corpuscular Volume 88.4 fl (78.0-98.0); Mean Platelet Volume 11.1 fL (7.4-10.4); RBC Distribution Width 15.5 % (11.5-14.5); Red Blood Cell (RBC) Count 3.54 mill/uL (4.20-5.40); White Blood Cell (WBC) Count 6.4 10x3/uL (4.8-10.8)
[2023-07-10 18:05] LABS: Platelet Count 70 10x3/uL (130-400)
[2023-07-10 18:21] LABS: ALT (SGPT) 42 U/L (8-55); AST (SGOT) 73 U/L (5-34); Albumin 4.3 g/dL (3.5-5.0); Alkaline Phosphatase 230 U/L (40-110); Anion Gap 14 mmol/L (10-20); BUN (Urea Nitrogen) 24 mg/dL (9.8-20.1); Calc. Creatinine Clearance 0 mL/min (70-130); Calcium 8.7 mg/dL (7.8-10.44); Carbon Dioxide 22 mmol/L (22-29); Chloride 101 mmol/L (98-107); Estimated GFR 87; Globulin 2.4 g/dL (2.4-3.5); Glucose 121 mg/dL (70-105); Potassium 4.2 mmol/L (3.5-5.1); Protein, Total 6.7 g/dL (6.0-8.3); Sodium 133 mmol/L (136-145)
[2023-07-10 18:26] LABS: Troponin I Less than 0.010 ng/mL (< 0.028)
[2023-07-10] MEDS ORDERED: Sodium Chloride 0.9% 100 ML ONE (21:40)
[2023-07-10] MEDS ORDERED: cefTRIAXone (ROCEPHIN) 2 GM VIAL ONE (21:40)
== END 2023-07-10 22:41 | disposition short-term general hospital (02) ==
LOC: ERS 17:30
DX: R18.8 Other ascites (principal); K72.90 Hepatic failure, unspecified without coma; E03.9 Hypothyroidism, unspecified; Z87.891 Personal history of nicotine dependence
CPT/HCPCS: 71045; 80053; 83880; 84484; 85025; 96374; J0696; J3490

== ENCOUNTER → 2023-07-21 | Day surgery (SDC) | payer BC ==
[~2023-07-21] MED LIST changes: +Albumin 25% 200 ML ONE
== END ==
LOC: ULT 07:26
PROVIDERS: ATTEND Physician Assistant Medical
PROC: 0W9G30Z Drainage of Peritoneal Cavity with Drainage Device, Percutaneous Approach (ICD-10-PCS; principal; 2023-07-21)
DX: K70.31 Alcoholic cirrhosis of liver with ascites (principal)
CPT/HCPCS: 49083; P9047

== ENCOUNTER → 2023-07-23 | Day surgery (SDC) | payer BC ==
[~2023-07-23] MED LIST changes: +Albumin 25% 100 ML ONE; -Albumin 25% 200 ML ONE
== END ==
LOC: ULT 11:59
PROVIDERS: ATTEND Physician Assistant Medical
PROC: 0W9G3ZZ Drainage of Peritoneal Cavity, Percutaneous Approach (ICD-10-PCS; principal; 2023-07-23)
DX: K70.31 Alcoholic cirrhosis of liver with ascites (principal)
CPT/HCPCS: 49083; P9047

== ENCOUNTER 2023-07-28 07:35 | Day surgery (SDC) | payer BC ==
[2023-07-28] MEDS ORDERED: Lidocaine 1% PF 5 ML VIAL ONE (07:40)
[2023-07-28] MEDS ORDERED: Sodium Bicarbonate 2.5 MEQ/5 ML VIAL ONE (07:40)
[2023-07-28] MEDS ORDERED: Albumin 25% 100 ML ONE ×2 (08:12→08:42)
[2023-07-28 10:00] VITALS: BP 112/52; TEMP 98.1
[2023-07-28] MEDS ORDERED: FLU VACC QS2023-24(6MOS UP)/PF 60 MCG/0.5 ML SYRINGE IM ONE (10:15)
== END 2023-07-28 09:50 | disposition home or self-care (01) ==
LOC: ULT 07:35
PROVIDERS: ATTEND Physician Assistant Medical
PROC: 0W9G3ZZ Drainage of Peritoneal Cavity, Percutaneous Approach (ICD-10-PCS; principal; 2023-07-28)
DX: K70.31 Alcoholic cirrhosis of liver with ascites (principal); I85.00 Esophageal varices without bleeding
CPT/HCPCS: 49083; 90471; 90686; G0008; P9047

== ENCOUNTER 2023-08-02 09:51 | Day surgery (SDC) | payer BC ==
[2023-08-02] MEDS ORDERED: Albumin 25% 200 ML ONE (10:30)
[2023-08-02] MEDS ORDERED: Sodium Bicarbonate 2.5 MEQ/5 ML VIAL ONE (10:30)
[2023-08-02] MEDS ORDERED: Lidocaine 1% PF 5 ML VIAL ONE (10:30)
[2023-08-02 15:10] VITALS: BP 128/65; TEMP 98.8
== END 2023-08-02 12:30 | disposition home or self-care (01) ==
LOC: ULT 09:51
PROVIDERS: ATTEND Physician Assistant Medical
PROC: 0W9G3ZZ Drainage of Peritoneal Cavity, Percutaneous Approach (ICD-10-PCS; principal; 2023-08-02)
DX: K70.31 Alcoholic cirrhosis of liver with ascites (principal)
CPT/HCPCS: 49083; P9047

== ENCOUNTER → 2023-08-05 | Day surgery (SDC) | payer BC ==
[~2023-08-05] MED LIST changes: -Albumin 25% 100 ML ONE; +Albumin 25% 200 ML ONE; +Albumin 25% 25 GM/100 ML BOT IVPB SCH
[2023-08-05 12:52] VITALS: BP 110/56
[2023-08-05 13:10] LABS: RBC Count-Automated (BF) 1518 /cu.mm; WBC/Nucleated-Auto (BF) 57 /cu.mm
[2023-08-05 14:29] LABS: BF Color White; Body Fluid Source Ascites Body Fluid; Clarity Cloudy/Turbid (Clear); Tube # EDTA
[2023-08-05 14:30] LABS: BF Segmented Neutrophils 7 %; Cell Count Non Hematic 72 %; Lymphocytes 21 %
== END ==
LOC: ULT 09:02
PROVIDERS: ATTEND Physician Assistant Medical
PROC: 0W9G3ZZ Drainage of Peritoneal Cavity, Percutaneous Approach (ICD-10-PCS; principal; 2023-08-05)
DX: K70.31 Alcoholic cirrhosis of liver with ascites (principal); I85.00 Esophageal varices without bleeding
CPT/HCPCS: 49083; 85060; 87070; 87205; 89051; P9047

== ENCOUNTER 2023-08-06 08:10 | Inpatient (IN) | payer BC ==
[2023-08-06 08:45] LABS: #Monocytes 1.8 thou/uL (0.11-0.59); #Neutrophils 13.8 thou/uL (1.40-6.50); %Basophils 0.1 % (0.0-1.0); %Eosinophils 0.1 % (0.0-10.0); %Lymphocytes 1.9 % (21.0-51.0); %Monocytes 10.9 % (0.0-10.0); Hematocrit 29.3 % (36.0-47.0); Hemoglobin 10.1 g/dL (12.0-16.0); Mean Corpuscular HGB CONC 34.5 g/dL (32.0-36.0); Mean Corpuscular Hemoglobin 29.6 pg (27.0-31.0); Mean Corpuscular Volume 85.9 fl (78.0-98.0); Platelet Count 191 10x3/uL (130-400); RBC Distribution Width 17.3 % (11.5-14.5); Red Blood Cell (RBC) Count 3.41 mill/uL (4.20-5.40); White Blood Cell (WBC) Count 16.1 10x3/uL (4.8-10.8)
[2023-08-06 09:11] LABS: ALT (SGPT) 28 U/L (8-55); AST (SGOT) 48 U/L (5-34); Alkaline Phosphatase 243 U/L (40-110); Anion Gap 20 mmol/L (10-20); BUN (Urea Nitrogen) 82 mg/dL (9.8-20.1); Bilirubin, Total 3.1 mg/dL (0.2-1.2); Calc. Creatinine Clearance 0 mL/min (70-130); Calcium 8.9 mg/dL (7.8-10.44); Carbon Dioxide 20 mmol/L (22-29); Chloride 87 mmol/L (98-107); Estimated GFR 22; Globulin 2.5 g/dL (2.4-3.5); Glucose 117 mg/dL (70-105); Lipase 59 U/L (8-78); Potassium 4.8 mmol/L (3.5-5.1); Protein, Total 6.5 g/dL (6.0-8.3); Sodium 122 mmol/L (136-145)
[2023-08-06] MEDS ORDERED: Sodium Chloride 0.9% 100 ML ONE ×2 (10:49→14:21)
[2023-08-06] MEDS ORDERED: Piperacillin/Tazobactam 3.375 GM VIAL ONE (10:49)
[2023-08-06] MEDS ORDERED: Midazolam HCl 2 mg/2 ml Vial ONE (10:58)
[2023-08-06] MEDS ORDERED: Piperacillin/Tazobactam 3.375 GM in Sodium Chloride 0.9% 100 ML IVPB SCH (11:00)
[2023-08-06] MEDS ORDERED: Vancomycin 1 GM in Premix 1 BAG IVPB SCH (11:00)
[2023-08-06 11:02] LABS: RBC Count-Automated (BF) 5474 /cu.mm; WBC/Nucleated-Auto (BF) 189 /cu.mm
[2023-08-06] MEDS ORDERED: Vancomycin 1 GM/200 ML (FROZEN) BAG ONE (11:40)
[2023-08-06 11:49] LABS: BF Color Gray; Body Fluid Source Ascites Body Fluid; Clarity Cloudy/Turbid (Clear); Tube # EDTA
[2023-08-06] MEDS ORDERED: Sodium Chloride 0.9% 1,000 ML IV SCH ×2 (12:15→17:47)
[2023-08-06 12:25] LABS: BF Segmented Neutrophils 4 %; Cell Count Non Hematic 63 %; Lymphocytes 33 %
[2023-08-06 12:39] LABS: Phosphorus 5.1 mg/dL (2.3-4.7)
[2023-08-06 12:46] LABS: Anion Gap 21 mmol/L (10-20); BUN (Urea Nitrogen) 83 mg/dL (9.8-20.1); Calc. Creatinine Clearance 0 mL/min (70-130); Calcium 9.1 mg/dL (7.8-10.44); Carbon Dioxide 19 mmol/L (22-29); Chloride 89 mmol/L (98-107); Estimated GFR 24; Glucose 119 mg/dL (70-105); Magnesium 2.9 mg/dL (1.6-2.6); Potassium 4.8 mmol/L (3.5-5.1); Sodium 124 mmol/L (136-145)
[2023-08-06] MEDS ORDERED: Iopamidol-370 76% 500 ML MDV (1 ML CHARGE) ONE (13:30)
[2023-08-06] MEDS ORDERED: Calcium Carbonate 500 MG ChewTAB PO PRN (13:44)
[2023-08-06] MEDS ORDERED: Vancomycin HCl 750 MG in Sodium Chloride 0.9% 250 ML 250 ML IVPB SCH (14:00)
[2023-08-06] MEDS ORDERED: metroNIDAZOLE 500 MG in Premix 1 BAG IVPB SCH (14:00)
[2023-08-06] MEDS ORDERED: Cefepime 1 GM VIAL ONE (14:20)
[2023-08-06] MEDS: Cefepime 1 GM in Sodium Chloride 0.9% 100 ML IVPB SCH (14:31)
[2023-08-06] MEDS ORDERED: metroNIDAZOLE 500 MG/100 ML BAG ONE (15:08)
[2023-08-06] MEDS: metroNIDAZOLE 500 MG in Premix 1 BAG IVPB SCH (15:20)
[2023-08-06 17:44] VITALS: BMI 23.3
[2023-08-06 17:45] LABS: Anion Gap 19 mmol/L (10-20); BUN (Urea Nitrogen) 79 mg/dL (9.8-20.1); Calc. Creatinine Clearance 30 mL/min (70-130); Calcium 8.9 mg/dL (7.8-10.44); Carbon Dioxide 19 mmol/L (22-29); Chloride 93 mmol/L (98-107); Estimated GFR 25; Glucose 105 mg/dL (70-105); Potassium 4.5 mmol/L (3.5-5.1); Sodium 126 mmol/L (136-145)
[2023-08-06 19:18] LABS: Bacteria/HPF None Seen HPF (None Seen); Bilirubin Negative (Negative); Blood, Urine Negative (Negative); Clarity Clear (Clear); Glucose, Urine (Dipstick) Normal (Negative); Ketone, Urine Negative (Negative); Leukocyte Negative Leu/uL (Negative); Nitrite Negative (Negative); Protein, Urine (Dipstick) Negative (Neg-Trace); RBC/HPF 0-3 HPF (0-3); Specific Gravity, Urine 1.019 (1.002-1.036); Squamous Epithelial 0-3 HPF (0-3); Urobilinogen Normal mg/dL (Less than 2); WBC/HPF 0-3 HPF (0-3); pH, Urine 5.5 (5.0-9.0)
[2023-08-06] MEDS ORDERED: Famotidine/PF 20 mg/2ml Vial SLOW IVP SCH (21:00)
[2023-08-06] MEDS ORDERED: Famotidine 20 MG TAB PO SCH (21:00)
[2023-08-06] MEDS ORDERED: Midodrine HCl 5 MG TAB PO SCH (21:00)
[2023-08-06] MEDS: Octreotide Acetate 1,250 MCG in Sodium Chloride 0.9% 250 ML 250 ML IVPB SCH (22:44)
[2023-08-06] MEDS: Cyanocobalamin (Vitamin B-12) 1,000 MCG TAB PER TUBE SCH (22:46)
[2023-08-06] MEDS: Folic Acid 1 MG TAB PER TUBE SCH (22:46)
[2023-08-06] MEDS: Midodrine HCl 5 MG TAB PO SCH (22:47)
[2023-08-06] MEDS: Multivit, Therapeutic 1 TAB PER TUBE SCH (22:48)
[2023-08-06] MEDS: Pantoprazole 40 MG VIAL IVP SCH (22:49)
[2023-08-06] MEDS: Rifaximin 200 MG TAB PO SCH (22:49)
[2023-08-07 01:02] LABS: Anion Gap 21 mmol/L (10-20); BUN (Urea Nitrogen) 78 mg/dL (9.8-20.1); Calc. Creatinine Clearance 30 mL/min (70-130); Carbon Dioxide 19 mmol/L (22-29); Chloride 95 mmol/L (98-107); Estimated GFR 25; Glucose 94 mg/dL (70-105); Potassium 4.5 mmol/L (3.5-5.1); Sodium 130 mmol/L (136-145)
[2023-08-07] MEDS: Dextrose 5 %-0.45 % NaCl 1,000 ML IV SCH ×2 (01:59→15:45)
[2023-08-07] MEDS: metroNIDAZOLE 500 MG in Premix 1 BAG IVPB SCH ×3 (02:04→17:47)
[2023-08-07] MEDS: Albumin 25% 25 GM/100 ML BOT IVPB SCH ×5 (03:10→22:29)
[2023-08-07 04:45] LABS: #Monocytes 1.7 thou/uL (0.11-0.59); #Neutrophils 11.7 thou/uL (1.40-6.50); %Basophils 0.2 % (0.0-1.0); %Eosinophils 0.3 % (0.0-10.0); %Monocytes 12.3 % (0.0-10.0); %Neutrophils 84.5 % (42.0-75.0); Hematocrit 26.6 % (36.0-47.0); Hemoglobin 8.9 g/dL (12.0-16.0); Mean Corpuscular HGB CONC 33.5 g/dL (32.0-36.0); Mean Corpuscular Hemoglobin 29.1 pg (27.0-31.0); Mean Corpuscular Volume 86.9 fl (78.0-98.0); Mean Platelet Volume 10.2 fL (7.4-10.4); Platelet Count 155 10x3/uL (130-400); RBC Distribution Width 17.9 % (11.5-14.5); Red Blood Cell (RBC) Count 3.06 mill/uL (4.20-5.40); White Blood Cell (WBC) Count 13.8 10x3/uL (4.8-10.8)
[2023-08-07 04:57] LABS: INR-International Normal Ratio 1.6; PTT 41.1 sec (22.9-36.1); Prothrombin Time 19.4 sec (12.0-14.7)
[2023-08-07] MEDS: Cefepime 1 GM in Sodium Chloride 0.9% 100 ML IVPB SCH (05:20)
[2023-08-07 05:26] LABS: ALT (SGPT) 25 U/L (8-55); AST (SGOT) 52 U/L (5-34); Albumin 3.6 g/dL (3.5-5.0); Alkaline Phosphatase 189 U/L (40-110); Anion Gap 15 mmol/L (10-20); BUN (Urea Nitrogen) 77 mg/dL (9.8-20.1); Bilirubin, Total 3.6 mg/dL (0.2-1.2); Calc. Creatinine Clearance 29 mL/min (70-130); Calcium 8.6 mg/dL (7.8-10.44); Carbon Dioxide 21 mmol/L (22-29); Chloride 96 mmol/L (98-107); Estimated GFR 24; Globulin 2.1 g/dL (2.4-3.5); Glucose 214 mg/dL (70-105); Potassium 4.2 mmol/L (3.5-5.1); Protein, Total 5.7 g/dL (6.0-8.3); Sodium 128 mmol/L (136-145)
[2023-08-07] MEDS: Rifaximin 200 MG TAB PO SCH ×2 (09:56→22:01)
[2023-08-07] MEDS: Pantoprazole 40 MG VIAL IVP SCH ×2 (09:57→22:01)
[2023-08-07] MEDS: Midodrine HCl 5 MG TAB PO SCH ×3 (09:57→22:01)
[2023-08-07] MEDS ORDERED: Vancomycin Dose by Levels Sliding Scale (Wt <71) FS SCH (11:30)
[2023-08-07 11:57] LABS: Vancomycin, Random 8.2 ug/mL (See Comment)
[2023-08-07] MEDS ORDERED: Vancomycin 1 GM in Premix 1 BAG IVPB SCH (12:45)
[2023-08-07] MEDS: Diazepam 5 MG TAB PO PRN (15:44)
[2023-08-07] MEDS ORDERED: Vancomycin (BATCH) 1.25 GM in Premix 1 BAG IVPB SCH (16:00)
[2023-08-07] MEDS ORDERED: Cefepime 1 GM in Sodium Chloride 0.9% 100 ML IVPB SCH (17:00)
[2023-08-07] MEDS: Dextrose 5 % And 0.9 % NaCl 1,000 ML IV SCH (21:23)
[2023-08-07] MEDS ORDERED: Albuterol 200 PUFF (6.7GM INHALER) INH PRN (21:51)
[2023-08-07] MEDS ORDERED: Cyclobenzaprine 10 MG TAB PO SCH (22:15)
[2023-08-07] MEDS: Folic Acid 1 MG TAB PER TUBE SCH (22:29)
[2023-08-07] MEDS: Cyanocobalamin (Vitamin B-12) 1,000 MCG TAB PER TUBE SCH (22:29)
[2023-08-07] MEDS: Multivit, Therapeutic 1 TAB PER TUBE SCH (22:30)
[2023-08-07] MEDS: Octreotide Acetate 1,250 MCG in Sodium Chloride 0.9% 250 ML 250 ML IVPB SCH (22:56)
[2023-08-08] MEDS: Diazepam 5 MG TAB PO PRN ×3 (00:17→20:46)
[2023-08-08] MEDS: metroNIDAZOLE 500 MG in Premix 1 BAG IVPB SCH ×3 (01:57→19:06)
[2023-08-08 02:05] LABS: Creatinine, Urine 64.96 mg/dL (47-110); Sodium, Urine Less than 20 mmol/L (Not Available)
[2023-08-08] MEDS: Dextrose 5 % And 0.9 % NaCl 1,000 ML IV SCH ×3 (04:56→23:37)
[2023-08-08] MEDS: Cefepime 1 GM in Sodium Chloride 0.9% 100 ML IVPB SCH (05:02)
[2023-08-08 06:00] LABS: #Basophils 0.1 thou/uL (0.0-0.2); #Eosinphils 0.2 thou/uL (0.0-0.7); #Monocytes 1.3 thou/uL (0.11-0.59); #Neutrophils 7.4 thou/uL (1.40-6.50); %Basophils 0.5 % (0.0-1.0); %Eosinophils 1.8 % (0.0-10.0); %Lymphocytes 2.6 % (21.0-51.0); %Monocytes 13.9 % (0.0-10.0); %Neutrophils 80.1 % (42.0-75.0); Hematocrit 27.3 % (36.0-47.0); Mean Corpuscular Hemoglobin 28.8 pg (27.0-31.0); Mean Corpuscular Volume 87.5 fl (78.0-98.0); Mean Platelet Volume 9.8 fL (7.4-10.4); Platelet Count 122 10x3/uL (130-400); RBC Distribution Width 17.4 % (11.5-14.5); Red Blood Cell (RBC) Count 3.12 mill/uL (4.20-5.40); White Blood Cell (WBC) Count 9.2 10x3/uL (4.8-10.8)
[2023-08-08 06:23] LABS: Anion Gap 14 mmol/L (10-20); BUN (Urea Nitrogen) 68 mg/dL (9.8-20.1); Calc. Creatinine Clearance 32 mL/min (70-130); Calcium 8.4 mg/dL (7.8-10.44); Carbon Dioxide 20 mmol/L (22-29); Chloride 95 mmol/L (98-107); Estimated GFR 27; Glucose 135 mg/dL (70-105); Potassium 3.2 mmol/L (3.5-5.1); Sodium 126 mmol/L (136-145)
[2023-08-08] MEDS: Pantoprazole 40 MG VIAL IVP SCH ×2 (10:12→20:45)
[2023-08-08] MEDS: Rifaximin 200 MG TAB PO SCH ×2 (10:12→20:45)
[2023-08-08] MEDS: Midodrine HCl 5 MG TAB PO SCH ×3 (10:12→20:45)
[2023-08-08] MEDS: Albumin 25% 25 GM/100 ML BOT IVPB SCH ×3 (12:11→23:37)
[2023-08-08] MEDS ORDERED: Lidocaine 2% PF 100 mg/5 ml Syringe ONE (12:39)
[2023-08-08] MEDS ORDERED: Sodium Bicarbonate 2.5 MEQ/5 ML VIAL FS SCH (13:15)
[2023-08-08] MEDS ORDERED: Lidocaine 1% (PF) 30 ML VIAL FS SCH (13:15)
[2023-08-08 13:48] LABS: Vancomycin, Random 10.5 ug/mL (See Comment)
[2023-08-08] MEDS ORDERED: Vancomycin (BATCH) 1.25 GM in Premix 1 BAG IVPB SCH (14:15)
[2023-08-08] MEDS: Cyanocobalamin (Vitamin B-12) 1,000 MCG TAB PO SCH (20:44)
[2023-08-08] MEDS: Folic Acid 1 MG TAB PO SCH (20:44)
[2023-08-08] MEDS: Multivit, Therapeutic 1 TAB PO SCH (20:45)
[2023-08-09] MEDS: metroNIDAZOLE 500 MG in Premix 1 BAG IVPB SCH ×3 (03:11→18:14)
[2023-08-09 04:37] LABS: #Eosinphils 0.2 thou/uL (0.0-0.7); #Monocytes 1.1 thou/uL (0.11-0.59); %Basophils 0.5 % (0.0-1.0); %Eosinophils 1.7 % (0.0-10.0); %Lymphocytes 2.7 % (21.0-51.0); %Monocytes 12.8 % (0.0-10.0); %Neutrophils 81.3 % (42.0-75.0); Hematocrit 27.6 % (36.0-47.0); Hemoglobin 9.1 g/dL (12.0-16.0); Mean Corpuscular Hemoglobin 29.4 pg (27.0-31.0); Mean Platelet Volume 10.1 fL (7.4-10.4); RBC Distribution Width 17.2 % (11.5-14.5); White Blood Cell (WBC) Count 8.6 10x3/uL (4.8-10.8)
[2023-08-09 04:41] LABS: Platelet Count 121 10x3/uL (130-400)
[2023-08-09 05:04] LABS: Anion Gap 13 mmol/L (10-20); BUN (Urea Nitrogen) 49 mg/dL (9.8-20.1); Calc. Creatinine Clearance 47 mL/min (70-130); Calcium 8.2 mg/dL (7.8-10.44); Carbon Dioxide 19 mmol/L (22-29); Chloride 103 mmol/L (98-107); Estimated GFR 43; Glucose 114 mg/dL (70-105); Potassium 3.2 mmol/L (3.5-5.1); Sodium 132 mmol/L (136-145)
[2023-08-09] MEDS: Octreotide Acetate 1,250 MCG in Sodium Chloride 0.9% 250 ML 250 ML IVPB SCH (05:19)
[2023-08-09] MEDS: Cefepime 1 GM in Sodium Chloride 0.9% 100 ML IVPB SCH (06:10)
[2023-08-09] MEDS: Levothyroxine 175 MCG TAB PO SCH (06:11)
[2023-08-09] MEDS: Albumin 25% 25 GM/100 ML BOT IVPB SCH ×4 (07:23→23:42)
[2023-08-09] MEDS ORDERED: Potassium Chloride 20 MEQ TAB PO SCH (08:00)
[2023-08-09] MEDS: Dextrose 5 % And 0.9 % NaCl 1,000 ML IV SCH ×2 (08:14→16:37)
[2023-08-09] MEDS ORDERED: Albumin 25% 25 GM/100 ML BOT IVPB SCH (08:15)
[2023-08-09] MEDS: Rifaximin 200 MG TAB PO SCH ×2 (09:23→21:06)
[2023-08-09] MEDS: Pantoprazole 40 MG VIAL IVP SCH ×2 (09:23→21:06)
[2023-08-09] MEDS: Midodrine HCl 5 MG TAB PO SCH ×3 (09:24→21:04)
[2023-08-09] MEDS ORDERED: Cefepime 1 GM in Sodium Chloride 0.9% 100 ML IVPB SCH (18:00)
[2023-08-09] MEDS: Cyanocobalamin (Vitamin B-12) 1,000 MCG TAB PO SCH (21:04)
[2023-08-09] MEDS: Folic Acid 1 MG TAB PO SCH (21:04)
[2023-08-09] MEDS: Multivit, Therapeutic 1 TAB PO SCH (21:06)
[2023-08-10] MEDS: Dextrose 5 % And 0.9 % NaCl 1,000 ML IV SCH ×3 (01:03→11:09)
[2023-08-10] MEDS: metroNIDAZOLE 500 MG in Premix 1 BAG IVPB SCH ×2 (01:08→09:11)
[2023-08-10] MEDS: Levothyroxine 175 MCG TAB PO SCH (04:56)
[2023-08-10] MEDS: Albumin 25% 25 GM/100 ML BOT IVPB SCH (04:56)
[2023-08-10 05:11] LABS: #Basophils 0.1 thou/uL (0.0-0.2); #Eosinphils 0.2 thou/uL (0.0-0.7); #Monocytes 1.1 thou/uL (0.11-0.59); #Neutrophils 6.5 thou/uL (1.40-6.50); %Basophils 0.6 % (0.0-1.0); %Eosinophils 2.2 % (0.0-10.0); %Lymphocytes 2.3 % (21.0-51.0); %Monocytes 13.5 % (0.0-10.0); %Neutrophils 79.6 % (42.0-75.0); Hemoglobin 9.1 g/dL (12.0-16.0); Mean Corpuscular HGB CONC 32.5 g/dL (32.0-36.0); Mean Corpuscular Hemoglobin 29.3 pg (27.0-31.0); Mean Platelet Volume 9.7 fL (7.4-10.4); Platelet Count 118 10x3/uL (130-400); RBC Distribution Width 17.6 % (11.5-14.5); Red Blood Cell (RBC) Count 3.11 mill/uL (4.20-5.40); White Blood Cell (WBC) Count 8.2 10x3/uL (4.8-10.8)
[2023-08-10 05:31] LABS: Anion Gap 13 mmol/L (10-20); BUN (Urea Nitrogen) 44 mg/dL (9.8-20.1); Calc. Creatinine Clearance 52 mL/min (70-130); Calcium 8.7 mg/dL (7.8-10.44); Carbon Dioxide 17 mmol/L (22-29); Chloride 104 mmol/L (98-107); Estimated GFR 48; Glucose 108 mg/dL (70-105); Potassium 3.7 mmol/L (3.5-5.1); Sodium 130 mmol/L (136-145)
[2023-08-10] MEDS: Midodrine HCl 5 MG TAB PO SCH (09:09)
[2023-08-10] MEDS: Rifaximin 200 MG TAB PO SCH (09:09)
[2023-08-10] MEDS: Pantoprazole 40 MG VIAL IVP SCH (09:10)
[2023-08-10] MEDS: Octreotide Acetate 1,250 MCG in Sodium Chloride 0.9% 250 ML 250 ML IVPB SCH (09:44)
[2023-08-10 11:55] VITALS: BP 136/72; TEMP 97.5
[2023-08-10] MEDS ORDERED: Albumin 25% 25 GM/100 ML BOT IVPB SCH (12:00)
== END 2023-08-10 14:00 | disposition home or self-care (01) | DRG 871 ==
LOC: ERS 08:10 → ERHOLD 10:42 → 2NO 16:00
PROVIDERS: ADMIT Internal Medicine; ATTEND Internal Medicine
PROC: 0DH67UZ Insertion of Feeding Device into Stomach, Via Natural or Artificial Opening (ICD-10-PCS; principal; 2023-08-06)
PROC: 30233J1 Transfusion of Nonautologous Serum Albumin into Peripheral Vein, Percutaneous Approach (ICD-10-PCS; 2023-08-06)
PROC: 3E03329 Introduction of Other Anti-infective into Peripheral Vein, Percutaneous Approach (ICD-10-PCS; 2023-08-06)
PROC: 0W9G3ZZ Drainage of Peritoneal Cavity, Percutaneous Approach (ICD-10-PCS; 2023-08-08)
DX: A41.9 Sepsis, unspecified organism (principal); G92.8 Other toxic encephalopathy; K76.7 Hepatorenal syndrome; J18.9 Pneumonia, unspecified organism; E87.1 Hypo-osmolality and hyponatremia; N17.9 Acute kidney failure, unspecified; E87.20 Acidosis, unspecified; K76.6 Portal hypertension; K70.31 Alcoholic cirrhosis of liver with ascites; K76.82 Hepatic encephalopathy; I48.0 Paroxysmal atrial fibrillation; F41.9 Anxiety disorder, unspecified; K21.9 Gastro-esophageal reflux disease without esophagitis; N18.2 Chronic kidney disease, stage 2 (mild); K43.9 Ventral hernia without obstruction or gangrene; G62.9 Polyneuropathy, unspecified; E03.9 Hypothyroidism, unspecified; Z87.891 Personal history of nicotine dependence; Z98.890 Other specified postprocedural states; Z79.899 Other long term (current) drug therapy; Z79.890 Hormone replacement therapy; Z79.51 Long term (current) use of inhaled steroids
CPT/HCPCS: 36415; 36416; 49083; 70450; 71045; 74018; 74177; 80048; 80053; 80202; 81001; 82140; 82570; 83690; 83735; 83930; 83935; 84100; 84300; 84443; 84484; 85025; 85060; 85610; 85730; 87040; 87070; 87205; 89051; 93005; 96360; 96361; 96365; 96366; 96367; 96375; C9113; J0692; J2250; J2354; J2543; J3370; J3370-JW; J3490; J7042; J7050; P9047; Q9967

== ENCOUNTER 2023-08-12 10:13 | Day surgery (SDC) | payer BC ==
[2023-08-12] MEDS ORDERED: Lidocaine 1% PF 5 ML VIAL ONE (10:23)
[2023-08-12] MEDS ORDERED: Sodium Bicarbonate 2.5 MEQ/5 ML VIAL ONE (10:23)
[2023-08-12] MEDS ORDERED: Albumin 25% 200 ML ONE (10:23)
[2023-08-12 13:57] VITALS: BP 130/89; TEMP 97.7
== END 2023-08-12 13:35 | disposition home or self-care (01) ==
LOC: ULT 10:13
PROVIDERS: ATTEND Physician Assistant Medical
PROC: 0W9G30Z Drainage of Peritoneal Cavity with Drainage Device, Percutaneous Approach (ICD-10-PCS; principal; 2023-08-12)
DX: K70.31 Alcoholic cirrhosis of liver with ascites (principal); I85.10 Secondary esophageal varices without bleeding
CPT/HCPCS: 49083; P9047

== ENCOUNTER 2023-08-13 16:29 | Emergency (ER) | payer BC ==
[2023-08-13 17:59] LABS: Bacteria/HPF None Seen HPF (None Seen); Bilirubin Negative (Negative); Blood, Urine Negative (Negative); CAUTI Indications for Culture Urological Procedure; Clarity Clear (Clear); Glucose, Urine (Dipstick) Normal (Negative); Ketone, Urine Negative (Negative); Leukocyte Negative Leu/uL (Negative); Nitrite Negative (Negative); Protein, Urine (Dipstick) Negative (Neg-Trace); RBC/HPF 0-3 HPF (0-3); Specific Gravity, Urine 1.003 (1.002-1.036); Squamous Epithelial 0-3 HPF (0-3); Urobilinogen Normal mg/dL (Less than 2); WBC/HPF 0-3 HPF (0-3)
[2023-08-13 18:02] LABS: Urine Culture Reflex Yes Yes
[2023-08-17 09:57] LABS: #Eosinphils 0.1 thou/uL (0.0-0.7); #Monocytes 1.3 thou/uL (0.11-0.59); #Neutrophils 13.7 thou/uL (1.40-6.50); %Basophils 0.2 % (0.0-1.0); %Eosinophils 0.4 % (0.0-10.0); %Lymphocytes 1.5 % (21.0-51.0); %Monocytes 8.6 % (0.0-10.0); %Neutrophils 88.1 % (42.0-75.0); Hematocrit 29.9 % (36.0-47.0); Hemoglobin 10.7 g/dL (12.0-16.0); Mean Corpuscular HGB CONC 35.8 g/dL (32.0-36.0); Mean Corpuscular Hemoglobin 30.1 pg (27.0-31.0); Mean Corpuscular Volume 84.2 fl (78.0-98.0); Mean Platelet Volume 10.4 fL (7.4-10.4); Platelet Count 151 10x3/uL (130-400); RBC Distribution Width 18.4 % (11.5-14.5); Red Blood Cell (RBC) Count 3.55 mill/uL (4.20-5.40); White Blood Cell (WBC) Count 15.5 10x3/uL (4.8-10.8)
[2023-08-17 10:11] LABS: ALT (SGPT) 24 U/L (8-55); AST (SGOT) 43 U/L (5-34); Acetaminophen Less than 10 mcg/mL (10.0-30.0); Albumin 4.2 g/dL (3.5-5.0); Alcohol Less than 10.0 mg/dL (Less than 10); Alkaline Phosphatase 169 U/L (40-110); Anion Gap 22 mmol/L (10-20); BUN (Urea Nitrogen) 123 mg/dL (9.8-20.1); Bilirubin, Total 3.3 mg/dL (0.2-1.2); Calc. Creatinine Clearance 0 mL/min (70-130); Calcium 9.2 mg/dL (7.8-10.44); Carbon Dioxide 14 mmol/L (22-29); Chloride 92 mmol/L (98-107); Estimated GFR 13; Globulin 1.9 g/dL (2.4-3.5); Glucose 112 mg/dL (70-105); Lipase 119 U/L (8-78); Magnesium 3.3 mg/dL (1.6-2.6); Potassium 4.8 mmol/L (3.5-5.1); Protein, Total 6.1 g/dL (6.0-8.3); Salicylate Less than 8.0 mg/dL (15.0-30.0); Sodium 123 mmol/L (136-145)
[2023-08-17 10:12] LABS: Troponin I 0.016 ng/mL (< 0.028)
== END 2023-08-13 19:00 | disposition home or self-care (01) ==
LOC: ERS 16:29
DX: R33.9 Retention of urine, unspecified (principal); Z87.891 Personal history of nicotine dependence
CPT/HCPCS: 51702; 80307; 81001; 82140; 83605; 83690; 83735; 84484; 85025; 87086; 99283

== ENCOUNTER 2023-08-16 08:00 | Day surgery (SDC) | payer BC ==
[2023-08-16] MEDS ORDERED: Lidocaine 1% PF 5 ML VIAL ONE (08:17)
[2023-08-16] MEDS ORDERED: Albumin 25% 200 ML ONE (08:17)
[2023-08-16] MEDS ORDERED: Sodium Bicarbonate 2.5 MEQ/5 ML VIAL ONE (08:17)
[2023-08-16 10:22] VITALS: BP 105/48; TEMP 98
== END 2023-08-16 10:22 | disposition home or self-care (01) ==
LOC: ULT 08:00
PROVIDERS: ATTEND Physician Assistant Medical
PROC: 0W9G3ZZ Drainage of Peritoneal Cavity, Percutaneous Approach (ICD-10-PCS; principal; 2023-08-16)
DX: K70.31 Alcoholic cirrhosis of liver with ascites (principal)
CPT/HCPCS: 49083; P9047

== ENCOUNTER 2023-08-17 09:14 | Inpatient (IN) | payer BC ==
[2023-08-17 10:19] LABS: Actual Bicarbonate (HCO3v) 14.6 mEq/L (22-28); Base Excess -7.9 mEq/L (-2.0 to +3.0); Chloride (VBG) 90 mmol/L (98-106); Hematocrit-VBG 33 % (36.0-47.0); Hemoglobin (Hb) 11.3 g/dL (11.7-16.0); Potassium (VBG) 4.82 mmol/L (3.70-5.30); Sodium 124 mmol/L (133-146); pH (venous) 7.433 (7.32-7.43)
[2023-08-17] MEDS ORDERED: Lactulose 10 GM/15 ML Oral Solution PR SCH ×2 (12:30→18:00)
[2023-08-17 12:40] LABS: Anion Gap 22 mmol/L (10-20); BUN (Urea Nitrogen) 116 mg/dL (9.8-20.1); Calc. Creatinine Clearance 0 mL/min (70-130); Carbon Dioxide 13 mmol/L (22-29); Chloride 95 mmol/L (98-107); Estimated GFR 14; Glucose 110 mg/dL (70-105); Potassium 4.6 mmol/L (3.5-5.1); Sodium 125 mmol/L (136-145)
[2023-08-17] MEDS ORDERED: Acetaminophen 650 MG Suppository PR PRN (13:11)
[2023-08-17 14:44] LABS: Lactic Acid 1.8 mmol/L (0.5-2.2)
[2023-08-17] MEDS ORDERED: Meropenem 1 GM in Sodium Chloride 0.9% 100 ML IVPB SCH (14:45)
[2023-08-17] MEDS ORDERED: Sodium Bicarbonate 150 MEQ in Dextrose 5% in Water 1,000 ML IV SCH (15:00)
[2023-08-17 15:34] LABS: Amphetamine Not Detected (NotDetected); Barbiturates Screen Not Detected (NotDetected); Benzodiazepine Screen Detected (NotDetected); Cocaine Metabolite Screen Not Detected (NotDetected); Methadone Not Detected (NotDetected); Methamphetamine Not Detected (NotDetected); Opiate Screen Not Detected (NotDetected); Oxycodone Screen Not Detected (NotDetected); Phencyclidine (PCP) Not Detected (NotDetected); THC/Cannabinoid Screen Not Detected (NotDetected); Tricyclic Screen Not Detected (NotDetected)
[2023-08-17 15:39] LABS: Bilirubin Negative (Negative); Blood, Urine 3+ (Negative); CAUTI Indications for Culture Alt mental st,lethar; Clarity Clear (Clear); Glucose, Urine (Dipstick) Normal (Negative); Ketone, Urine Negative (Negative); Leukocyte 75 Leu/uL (Negative); Nitrite Negative (Negative); Protein, Urine (Dipstick) Negative (Neg-Trace); RBC/HPF 21-50 HPF (0-3); Specific Gravity, Urine 1.004 (1.002-1.036); Squamous Epithelial 0-3 HPF (0-3); Urobilinogen Normal mg/dL (Less than 2); WBC/HPF 0-3 HPF (0-3)
[2023-08-17 15:46] LABS: Bacteria/HPF 1+ HPF (None Seen); Yeast-Budding 2+ HPF (None Seen)
[2023-08-17 15:48] LABS: Urine Culture Reflex No No
[2023-08-17] MEDS ORDERED: Heparin 5,000 UNITS/ML VIAL ONE (16:03)
[2023-08-17] MEDS: Octreotide Acetate 1,250 MCG in Sodium Chloride 0.9% 250 ML 250 ML IVPB SCH (17:25)
[2023-08-17] MEDS: Midodrine HCl 5 MG TAB PER TUBE SCH ×2 (17:30→19:59)
[2023-08-17] MEDS: Heparin 5,000 UNITS/ML VIAL SC SCH ×2 (17:36→19:59)
[2023-08-17 19:44] LABS: Anion Gap 23 mmol/L (10-20); BUN (Urea Nitrogen) 122 mg/dL (9.8-20.1); Calc. Creatinine Clearance 0 mL/min (70-130); Calcium 9.2 mg/dL (7.8-10.44); Carbon Dioxide 13 mmol/L (22-29); Chloride 95 mmol/L (98-107); Estimated GFR 14; Glucose 125 mg/dL (70-105); Potassium 4.9 mmol/L (3.5-5.1); Sodium 126 mmol/L (136-145)
[2023-08-17] MEDS: Albumin 25% 25 GM/100 ML BOT IVPB SCH (19:59)
[2023-08-17 21:22] VITALS: BMI 21.9
[2023-08-17 21:28] LABS: Anion Gap 24 mmol/L (10-20); BUN (Urea Nitrogen) 123 mg/dL (9.8-20.1); Calc. Creatinine Clearance 16 mL/min (70-130); Calcium 9.4 mg/dL (7.8-10.44); Carbon Dioxide 13 mmol/L (22-29); Chloride 95 mmol/L (98-107); Estimated GFR 13; Glucose 144 mg/dL (70-105); Potassium 4.6 mmol/L (3.5-5.1); Sodium 127 mmol/L (136-145)
[2023-08-17] MEDS: Meropenem 500 MG in Sodium Chloride 0.9% 100 ML IVPB SCH (22:02)
[2023-08-18 00:25] LABS: Anion Gap 22 mmol/L (10-20); BUN (Urea Nitrogen) 120 mg/dL (9.8-20.1); Calc. Creatinine Clearance 16 mL/min (70-130); Calcium 9.3 mg/dL (7.8-10.44); Carbon Dioxide 16 mmol/L (22-29); Chloride 94 mmol/L (98-107); Estimated GFR 13; Glucose 136 mg/dL (70-105); Potassium 4.9 mmol/L (3.5-5.1); Sodium 127 mmol/L (136-145)
[2023-08-18] MEDS: Albumin 25% 25 GM/100 ML BOT IVPB SCH ×5 (00:34→17:18)
[2023-08-18] MEDS: Sodium Bicarbonate 150 MEQ in Dextrose 5% in Water 1,000 ML IV SCH ×3 (02:22→21:13)
[2023-08-18 02:24] LABS: Creatinine, Urine 68.81 mg/dL (47-110); Sodium, Urine Less than 20 mmol/L (Not Available)
[2023-08-18 05:53] LABS: #Eosinphils 0.1 thou/uL (0.0-0.7); #Monocytes 1.4 thou/uL (0.11-0.59); #Neutrophils 9.1 thou/uL (1.40-6.50); %Basophils 0.2 % (0.0-1.0); %Eosinophils 0.7 % (0.0-10.0); %Lymphocytes 3.6 % (21.0-51.0); %Monocytes 12.7 % (0.0-10.0); Hematocrit 27.3 % (36.0-47.0); Hemoglobin 9.8 g/dL (12.0-16.0); Mean Corpuscular HGB CONC 35.9 g/dL (32.0-36.0); Mean Corpuscular Hemoglobin 30.3 pg (27.0-31.0); Mean Corpuscular Volume 84.5 fl (78.0-98.0); Mean Platelet Volume 10.6 fL (7.4-10.4); RBC Distribution Width 18.9 % (11.5-14.5); Red Blood Cell (RBC) Count 3.23 mill/uL (4.20-5.40); White Blood Cell (WBC) Count 11.1 10x3/uL (4.8-10.8)
[2023-08-18 06:06] LABS: INR-International Normal Ratio 1.7; Prothrombin Time 21.1 sec (12.0-14.7)
[2023-08-18] MEDS: Levothyroxine 175 MCG TAB PER TUBE SCH ×2 (06:11→08:09)
[2023-08-18 06:12] LABS: Platelet Count 93 10x3/uL (130-400)
[2023-08-18 06:37] LABS: ALT (SGPT) 25 U/L (8-55); AST (SGOT) 63 U/L (5-34); Albumin 4.5 g/dL (3.5-5.0); Alkaline Phosphatase 134 U/L (40-110); Anion Gap 23 mmol/L (10-20); BUN (Urea Nitrogen) 125 mg/dL (9.8-20.1); Bilirubin, Total 4.8 mg/dL (0.2-1.2); Calc. Creatinine Clearance 17 mL/min (70-130); Calcium 9.4 mg/dL (7.8-10.44); Carbon Dioxide 17 mmol/L (22-29); Chloride 94 mmol/L (98-107); Estimated GFR 14; Globulin 1.8 g/dL (2.4-3.5); Glucose 129 mg/dL (70-105); Potassium 4.6 mmol/L (3.5-5.1); Protein, Total 6.3 g/dL (6.0-8.3); Sodium 129 mmol/L (136-145)
[2023-08-18] MEDS: Pantoprazole 40 MG VIAL IVP SCH (08:09)
[2023-08-18] MEDS: Midodrine HCl 5 MG TAB PER TUBE SCH ×3 (08:09→21:11)
[2023-08-18] MEDS ORDERED: Lidocaine 1% PF 5 ML VIAL ONE (11:42)
[2023-08-18] MEDS ORDERED: Sodium Bicarbonate 2.5 MEQ/5 ML VIAL ONE (11:43)
[2023-08-18] MEDS: Meropenem 500 MG in Sodium Chloride 0.9% 100 ML IVPB SCH ×2 (12:11→22:28)
[2023-08-18] MEDS: Octreotide Acetate 1,250 MCG in Sodium Chloride 0.9% 250 ML 250 ML IVPB SCH (12:14)
[2023-08-18] MEDS ORDERED: Rifaximin 200 MG TAB PO SCH (13:00)
[2023-08-18] MEDS ORDERED: Rifaximin 550 MG TAB PO SCH (13:00)
[2023-08-18 15:13] LABS: RBC Count-Automated (BF) 7678 /cu.mm; WBC/Nucleated-Auto (BF) 287 /cu.mm
[2023-08-18 15:42] LABS: BF Color Pink; Body Fluid Source Ascites Body Fluid; Clarity Cloudy/Turbid (Clear); Tube # EDTA
[2023-08-18 15:49] LABS: BF Segmented Neutrophils 24 %; Cell Count Non Hematic 62 %; Lymphocytes 14 %
[2023-08-18] MEDS: Pregabalin 50 MG CAP PO SCH ×2 (15:53→21:11)
[2023-08-18] MEDS: Rifaximin 200 MG TAB PO SCH (21:11)
[2023-08-19] MEDS: Albumin 25% 25 GM/100 ML BOT IVPB SCH ×4 (00:01→17:28)
[2023-08-19 04:42] LABS: #Eosinphils 0.1 thou/uL (0.0-0.7); #Monocytes 0.8 thou/uL (0.11-0.59); #Neutrophils 4.6 thou/uL (1.40-6.50); %Basophils 0.5 % (0.0-1.0); %Lymphocytes 3.8 % (21.0-51.0); %Monocytes 13.8 % (0.0-10.0); Hematocrit 25.8 % (36.0-47.0); Hemoglobin 9.1 g/dL (12.0-16.0); Mean Corpuscular HGB CONC 35.3 g/dL (32.0-36.0); Mean Corpuscular Hemoglobin 29.7 pg (27.0-31.0); Mean Corpuscular Volume 84.3 fl (78.0-98.0); Mean Platelet Volume 10.9 fL (7.4-10.4); Red Blood Cell (RBC) Count 3.06 mill/uL (4.20-5.40); White Blood Cell (WBC) Count 5.9 10x3/uL (4.8-10.8)
[2023-08-19 04:48] LABS: Platelet Count 53 10x3/uL (130-400)
[2023-08-19 04:50] LABS: INR-International Normal Ratio 1.9; Prothrombin Time 22.4 sec (12.0-14.7)
[2023-08-19 05:03] LABS: Anion Gap 21 mmol/L (10-20); BUN (Urea Nitrogen) 116 mg/dL (9.8-20.1); Calc. Creatinine Clearance 18 mL/min (70-130); Calcium 8.9 mg/dL (7.8-10.44); Carbon Dioxide 26 mmol/L (22-29); Chloride 85 mmol/L (98-107); Estimated GFR 15; Glucose 114 mg/dL (70-105); Potassium 3.5 mmol/L (3.5-5.1); Sodium 128 mmol/L (136-145)
[2023-08-19] MEDS: Levothyroxine 175 MCG TAB PER TUBE SCH (06:28)
[2023-08-19] MEDS: Sodium Bicarbonate 150 MEQ in Dextrose 5% in Water 1,000 ML IV SCH (06:29)
[2023-08-19] MEDS: Thiamine 100 MG TAB PO SCH (09:12)
[2023-08-19] MEDS: Multivitamin W/ Minerals 1 TAB PO SCH (09:12)
[2023-08-19] MEDS: Pregabalin 50 MG CAP PO SCH ×3 (09:12→19:48)
[2023-08-19] MEDS: Midodrine HCl 5 MG TAB PER TUBE SCH ×3 (09:12→19:48)
[2023-08-19] MEDS: Folic Acid 1 MG TAB PO SCH (09:12)
[2023-08-19] MEDS: Rifaximin 200 MG TAB PO SCH (09:13)
[2023-08-19] MEDS: Pantoprazole 40 MG VIAL IVP SCH (09:13)
[2023-08-19] MEDS: Sodium Chloride 0.9% 1,000 ML IV SCH ×2 (09:13→16:10)
[2023-08-19] MEDS: Meropenem 500 MG in Sodium Chloride 0.9% 100 ML IVPB SCH (11:22)
[2023-08-19] MEDS: XIFAXAN 550 MG PO SCH (19:48)
[2023-08-20] MEDS: Albumin 25% 25 GM/100 ML BOT IVPB SCH ×4 (00:01→18:14)
[2023-08-20] MEDS: Sodium Chloride 0.9% 1,000 ML IV SCH ×3 (01:49→18:14)
[2023-08-20] MEDS: Levothyroxine 175 MCG TAB PER TUBE SCH (05:11)
[2023-08-20 05:54] LABS: #Eosinphils 0.1 thou/uL (0.0-0.7); #Monocytes 0.9 thou/uL (0.11-0.59); #Neutrophils 6.6 thou/uL (1.40-6.50); %Basophils 0.3 % (0.0-1.0); %Eosinophils 1.6 % (0.0-10.0); %Lymphocytes 2.4 % (21.0-51.0); %Monocytes 11.4 % (0.0-10.0); %Neutrophils 83.8 % (42.0-75.0); Hematocrit 24.6 % (36.0-47.0); Hemoglobin 8.5 g/dL (12.0-16.0); Mean Corpuscular HGB CONC 34.6 g/dL (32.0-36.0); Mean Corpuscular Hemoglobin 30.4 pg (27.0-31.0); Mean Corpuscular Volume 87.9 fl (78.0-98.0); Mean Platelet Volume 10.7 fL (7.4-10.4); RBC Distribution Width 19.2 % (11.5-14.5); White Blood Cell (WBC) Count 7.9 10x3/uL (4.8-10.8)
[2023-08-20 05:59] LABS: INR-International Normal Ratio 1.8; Prothrombin Time 21.7 sec (12.0-14.7)
[2023-08-20 06:10] LABS: Platelet Count 58 10x3/uL (130-400)
[2023-08-20 06:19] LABS: Anion Gap 19 mmol/L (10-20); BUN (Urea Nitrogen) 114 mg/dL (9.8-20.1); Calc. Creatinine Clearance 21 mL/min (70-130); Calcium 8.9 mg/dL (7.8-10.44); Carbon Dioxide 23 mmol/L (22-29); Chloride 86 mmol/L (98-107); Estimated GFR 16; Glucose 135 mg/dL (70-105); Potassium 3.5 mmol/L (3.5-5.1); Sodium 124 mmol/L (136-145)
[2023-08-20] MEDS: Pregabalin 50 MG CAP PO SCH ×3 (08:25→22:20)
[2023-08-20] MEDS: Thiamine 100 MG TAB PO SCH (08:25)
[2023-08-20] MEDS: Folic Acid 1 MG TAB PO SCH (08:25)
[2023-08-20] MEDS: Multivitamin W/ Minerals 1 TAB PO SCH (08:26)
[2023-08-20] MEDS: Midodrine HCl 5 MG TAB PER TUBE SCH ×3 (08:26→22:20)
[2023-08-20] MEDS: Pantoprazole 40 MG VIAL IVP SCH (08:27)
[2023-08-20] MEDS: XIFAXAN 550 MG PO SCH ×2 (08:28→22:21)
[2023-08-20] MEDS ORDERED: Rifaximin 550 MG TAB PO SCH (09:00)
[2023-08-20] MEDS ORDERED: Rifaximin 200 MG TAB PO SCH (09:00)
[2023-08-20] MEDS ORDERED: Lidocaine 1% PF 5 ML VIAL ONE (09:03)
[2023-08-20] MEDS ORDERED: Sodium Bicarbonate 2.5 MEQ/5 ML VIAL ONE (09:03)
[2023-08-20] MEDS ORDERED: Albumin 25% 0 ML ONE (09:03)
[2023-08-21] MEDS: Albumin 25% 25 GM/100 ML BOT IVPB SCH ×4 (00:45→18:16)
[2023-08-21] MEDS: Sodium Chloride 0.9% 1,000 ML IV SCH ×3 (01:15→18:16)
[2023-08-21] MEDS: Octreotide Acetate 1,250 MCG in Sodium Chloride 0.9% 250 ML 250 ML IVPB SCH (03:05)
[2023-08-21] MEDS: Levothyroxine 175 MCG TAB PER TUBE SCH (06:47)
[2023-08-21 06:53] LABS: #Eosinphils 0.2 thou/uL (0.0-0.7); #Monocytes 0.9 thou/uL (0.11-0.59); #Neutrophils 6.7 thou/uL (1.40-6.50); %Basophils 0.2 % (0.0-1.0); %Eosinophils 2.9 % (0.0-10.0); %Lymphocytes 2.6 % (21.0-51.0); %Monocytes 10.9 % (0.0-10.0); %Neutrophils 82.9 % (42.0-75.0); Hematocrit 25.7 % (36.0-47.0); Hemoglobin 8.7 g/dL (12.0-16.0); Mean Corpuscular HGB CONC 33.9 g/dL (32.0-36.0); Mean Corpuscular Hemoglobin 29.9 pg (27.0-31.0); Mean Corpuscular Volume 88.3 fl (78.0-98.0); Mean Platelet Volume 10.5 fL (7.4-10.4); RBC Distribution Width 19.4 % (11.5-14.5); Red Blood Cell (RBC) Count 2.91 mill/uL (4.20-5.40)
[2023-08-21 07:04] LABS: Platelet Count 50 10x3/uL (130-400)
[2023-08-21 07:15] LABS: Anion Gap 15 mmol/L (10-20); BUN (Urea Nitrogen) 114 mg/dL (9.8-20.1); Calc. Creatinine Clearance 25 mL/min (70-130); Carbon Dioxide 25 mmol/L (22-29); Chloride 96 mmol/L (98-107); Estimated GFR 20; Glucose 122 mg/dL (70-105); Potassium 3.3 mmol/L (3.5-5.1); Sodium 133 mmol/L (136-145)
[2023-08-21] MEDS ORDERED: Potassium Chloride 20 MEQ TAB PO SCH (08:45)
[2023-08-21] MEDS: Folic Acid 1 MG TAB PO SCH (09:31)
[2023-08-21] MEDS: Thiamine 100 MG TAB PO SCH (09:31)
[2023-08-21] MEDS: Pregabalin 50 MG CAP PO SCH ×3 (09:31→22:18)
[2023-08-21] MEDS: Multivitamin W/ Minerals 1 TAB PO SCH ×3 (09:31→22:18)
[2023-08-21] MEDS: XIFAXAN 550 MG PO SCH ×2 (09:32→22:19)
[2023-08-21] MEDS: Midodrine HCl 5 MG TAB PER TUBE SCH (09:32)
[2023-08-21] MEDS: Midodrine HCl 5 MG TAB PO SCH ×2 (15:02→22:17)
[2023-08-22] MEDS: Albumin 25% 25 GM/100 ML BOT IVPB SCH ×5 (01:00→23:47)
[2023-08-22] MEDS: Sodium Chloride 0.9% 1,000 ML IV SCH ×2 (01:39→10:46)
[2023-08-22] MEDS: Levothyroxine 175 MCG TAB PO SCH (06:25)
[2023-08-22 06:55] LABS: #Eosinphils 0.3 thou/uL (0.0-0.7); #Monocytes 0.9 thou/uL (0.11-0.59); %Basophils 0.3 % (0.0-1.0); %Eosinophils 3.4 % (0.0-10.0); %Lymphocytes 2.2 % (21.0-51.0); %Monocytes 12.3 % (0.0-10.0); %Neutrophils 81.4 % (42.0-75.0); Hematocrit 25.4 % (36.0-47.0); Hemoglobin 8.4 g/dL (12.0-16.0); Mean Corpuscular HGB CONC 33.1 g/dL (32.0-36.0); Mean Corpuscular Hemoglobin 29.8 pg (27.0-31.0); Mean Corpuscular Volume 90.1 fl (78.0-98.0); Mean Platelet Volume 11.8 fL (7.4-10.4); RBC Distribution Width 19.4 % (11.5-14.5); Red Blood Cell (RBC) Count 2.82 mill/uL (4.20-5.40); White Blood Cell (WBC) Count 7.4 10x3/uL (4.8-10.8)
[2023-08-22 07:14] LABS: ALT (SGPT) 15 U/L (8-55); AST (SGOT) 32 U/L (5-34); Albumin 4.8 g/dL (3.5-5.0); Alkaline Phosphatase 129 U/L (40-110); Anion Gap 17 mmol/L (10-20); BUN (Urea Nitrogen) 110 mg/dL (9.8-20.1); Bilirubin, Total 2.6 mg/dL (0.2-1.2); Calc. Creatinine Clearance 27 mL/min (70-130); Calcium 9.2 mg/dL (7.8-10.44); Carbon Dioxide 20 mmol/L (22-29); Chloride 101 mmol/L (98-107); Estimated GFR 21; Globulin 1.3 g/dL (2.4-3.5); Glucose 100 mg/dL (70-105); Potassium 3.4 mmol/L (3.5-5.1); Protein, Total 6.1 g/dL (6.0-8.3); Sodium 135 mmol/L (136-145)
[2023-08-22 07:53] LABS: Platelet Count 45 10x3/uL (130-400)
[2023-08-22] MEDS ORDERED: Potassium Chloride 20 MEQ TAB PO SCH (08:30)
[2023-08-22] MEDS ORDERED: Potassium Bicarbonate/Cit Ac 20 MEQ TAB PO SCH (08:30)
[2023-08-22] MEDS: XIFAXAN 550 MG PO SCH ×2 (09:51→20:16)
[2023-08-22] MEDS: NS 0.9% w/ 40 MEQ KCL 1,000 ML IV SCH ×3 (09:51→23:47)
[2023-08-22] MEDS: Midodrine HCl 5 MG TAB PO SCH ×3 (09:52→20:15)
[2023-08-22] MEDS: Folic Acid 1 MG TAB PO SCH (09:52)
[2023-08-22] MEDS: Pregabalin 50 MG CAP PO SCH ×3 (09:52→20:15)
[2023-08-22] MEDS: Thiamine 100 MG TAB PO SCH (09:53)
[2023-08-22] MEDS: Multivitamin W/ Minerals 1 TAB PO SCH (20:15)
[2023-08-23] MEDS: Octreotide Acetate 1,250 MCG in Sodium Chloride 0.9% 250 ML 250 ML IVPB SCH (01:10)
[2023-08-23 03:57] LABS: Hematocrit 25.6 % (36.0-47.0); Hemoglobin 8.3 g/dL (12.0-16.0); Mean Corpuscular HGB CONC 32.4 g/dL (32.0-36.0); Mean Corpuscular Hemoglobin 29.7 pg (27.0-31.0); Mean Corpuscular Volume 91.8 fl (78.0-98.0); Mean Platelet Volume 11.7 fL (7.4-10.4); RBC Distribution Width 19.6 % (11.5-14.5); Red Blood Cell (RBC) Count 2.79 mill/uL (4.20-5.40); White Blood Cell (WBC) Count 9.4 10x3/uL (4.8-10.8)
[2023-08-23 04:22] LABS: Anion Gap 16 mmol/L (10-20); BUN (Urea Nitrogen) 109 mg/dL (9.8-20.1); Calc. Creatinine Clearance 28 mL/min (70-130); Calcium 9.1 mg/dL (7.8-10.44); Carbon Dioxide 17 mmol/L (22-29); Chloride 107 mmol/L (98-107); Estimated GFR 23; Glucose 156 mg/dL (70-105); Potassium 4.7 mmol/L (3.5-5.1); Sodium 135 mmol/L (136-145)
[2023-08-23 04:23] LABS: Platelet Count 44 10x3/uL (130-400)
[2023-08-23] MEDS: Levothyroxine 175 MCG TAB PO SCH (05:15)
[2023-08-23] MEDS: Albumin 25% 25 GM/100 ML BOT IVPB SCH (05:15)
[2023-08-23] MEDS: XIFAXAN 550 MG PO SCH (08:13)
[2023-08-23] MEDS: Midodrine HCl 5 MG TAB PO SCH (08:14)
[2023-08-23] MEDS: NS 0.9% w/ 40 MEQ KCL 1,000 ML IV SCH (08:15)
[2023-08-23] MEDS: Thiamine 100 MG TAB PO SCH (08:15)
[2023-08-23] MEDS: Pregabalin 50 MG CAP PO SCH (08:15)
[2023-08-23] MEDS: Folic Acid 1 MG TAB PO SCH (08:15)
[2023-08-23 08:21] VITALS: TEMP 98.1
[2023-08-23] MEDS ORDERED: Sodium Bicarbonate 2.5 MEQ/5 ML VIAL ONE (10:03)
[2023-08-23] MEDS ORDERED: Lidocaine 1% PF 5 ML VIAL ONE (10:03)
[2023-08-23] MEDS ORDERED: Lidocaine 2% 6 ML (Jelly) SYR ONE (10:11)
[2023-08-23] MEDS ORDERED: Albumin 25% 25 GM/100 ML BOT IVPB SCH (12:00)
[2023-08-23 13:09] VITALS: BP 103/53
== END 2023-08-23 13:55 | disposition home or self-care (01) | DRG 441 ==
LOC: ERS 09:14 → ERHOLD 12:24 → IMCU/EMU 19:32 → T4-A 08-19 13:39
PROVIDERS: ADMIT Family Medicine; ATTEND Internal Medicine
PROC: 30233J1 Transfusion of Nonautologous Serum Albumin into Peripheral Vein, Percutaneous Approach (ICD-10-PCS; 2023-08-17)
PROC: 0W9G3ZZ Drainage of Peritoneal Cavity, Percutaneous Approach (ICD-10-PCS; principal; 2023-08-18)
PROC: 0W9G3ZZ Drainage of Peritoneal Cavity, Percutaneous Approach (ICD-10-PCS; 2023-08-20)
PROC: 0W9G3ZZ Drainage of Peritoneal Cavity, Percutaneous Approach (ICD-10-PCS; 2023-08-23)
DX: K76.82 Hepatic encephalopathy (principal); K76.7 Hepatorenal syndrome; E72.4 Disorders of ornithine metabolism; N17.9 Acute kidney failure, unspecified; E87.1 Hypo-osmolality and hyponatremia; E87.20 Acidosis, unspecified; I48.91 Unspecified atrial fibrillation; E03.9 Hypothyroidism, unspecified; K21.9 Gastro-esophageal reflux disease without esophagitis; R33.9 Retention of urine, unspecified; K70.31 Alcoholic cirrhosis of liver with ascites; D64.9 Anemia, unspecified; K70.11 Alcoholic hepatitis with ascites; Z98.890 Other specified postprocedural states; Z87.891 Personal history of nicotine dependence
CPT/HCPCS: 36415; 49083; 70450; 71045; 76770; 80048; 80053; 80306; 81001; 82570; 82805; 83605; 84300; 84443; 85025; 85027; 85060; 85610; 87040; 87070; 87086; 87205; 89051; 93005; 96360; 96361; C9113; J1644; J2185; J2354; J3480; J3490; J7050; J7070; P9047

== ENCOUNTER 2024-06-28 07:06 | Day surgery (SDC) | payer BC ==
[2024-06-27 11:42] VITALS: BMI 22.7
[2024-06-28] MEDS ORDERED: PROPOFOL 40 ML ONE (07:43)
[2024-06-28] MEDS ORDERED: Lidocaine 1% PF 5 ML VIAL ONE (09:34)
== END 2024-06-28 10:40 | disposition home or self-care (01) ==
LOC: SDC 07:06
PROVIDERS: ATTEND Internal Medicine Gastroenterology
PROC: 0DJD8ZZ Inspection of Lower Intestinal Tract, Via Natural or Artificial Opening Endoscopic (ICD-10-PCS; principal; 2024-06-28)
DX: Z12.11 Encounter for screening for malignant neoplasm of colon (principal); K21.9 Gastro-esophageal reflux disease without esophagitis; K76.82 Hepatic encephalopathy; E07.9 Disorder of thyroid, unspecified; Z94.4 Liver transplant status; Z86.0100 Personal history of colon polyps, unspecified; Z87.891 Personal history of nicotine dependence; Z98.890 Other specified postprocedural states; Z79.890 Hormone replacement therapy; Z79.899 Other long term (current) drug therapy
CPT/HCPCS: J2704

== ENCOUNTER 2024-07-20 13:41 | Outpatient (CLI) | payer BC | END 2024-07-20 13:42 | disposition home or self-care (01) | LOC: BICMAMMO 13:41 | PROVIDERS: ATTEND Internal Medicine | DX: Z12.31 Encounter for screening mammogram for malignant neoplasm of breast (principal) | CPT/HCPCS: 77063; 77067 ==

== ENCOUNTER 2024-08-31 13:58 | Outpatient (CLI) | payer BC | END 2024-08-31 13:59 | disposition home or self-care (01) | LOC: BICMAMMO 13:58 | PROVIDERS: ATTEND Internal Medicine | DX: N64.89 Other specified disorders of breast (principal) | CPT/HCPCS: G0279 ==